=== PATIENT | female | born 1975 | race Caucasian/White ===

== ENCOUNTER 2023-05-01 07:31 | Emergency (ER) | payer OTHER, SELFPAY ==
[2023-05-01] VITALS (42 sets, daily range): BP systolic 92–126; BP diastolic 62–96; PULSE 94–109; RESP 18–22; TEMP 36.3–37.4; O2SAT 88–93
--- NOTE | ~2023-05-01 | XR_ITS ---
XR chest 1V portable DATE: 05/01/2023 08:14 INDICATION: Extreme shortness of breath. Cough, congestion for 3 days TECHNIQUE: Portable upright AP chest on 05/01/2023 at 0805 hours COMPARISON: None FINDINGS: There is extensive opacification of the right hemithorax likely due to a combination of ext ensive right diffuse lung infiltrate and atelectasis and right pleural effusion. Heart size is likely within normal range. Mild infiltrate or atelectasis is suggested in the left low er lung. Pulmonary vascularity appears within normal range. No left pleural effusion is evident. No p neumothorax is detected. Degenerative spurring and levoscoliosis of the thoracic spine. IMPRESSION: Extensive right lung infiltrate and/atelectasis and probable right pleural effusion Mild infiltrate or atelectasis, left lower lung Reviewed, dictated and finalized at location A.
--- NOTE | ~2023-05-01 | CT_ITS ---
EXAMINATION: CTA chest PE protocol DATE: 05/01/2023 10:01 INDICATION: Shortness of breath, elevated d-dimer TECHNIQUE: Computed tomography angiography (CTA) of the chest was performed with 100 mL Omnipaque-350 intravenous contrast timed to evaluate the pulmonary arteries. Coronal maximum intensity projection 3D-reconstructions were created by the technologist. Automated exposure control and iterative reconst ruction technique were employed. Exam dose: 811.41 mGy-cm total exam DLP. COMPARISON: 05/01/2023 portable AP chest FINDINGS: There is diagnostic contrast enhancement of the pulmonary arteries. Evaluation of the perip heral pulmonary arteries however is limited by motion. No central or segmental pulmonary embolus is d etected. There is a very large right pleural effusion with atelectasis of the right lung, especially the right lower lobe and middle lobe, to a lesser extent right upper lobe. No apparent bronchial obstruction i s identified. There is multifocal patchy infiltrate with peripheral predominance involving particularly the left up per lobe, lingula and to a lesser extent the right lower lobe. Multifocal pneumonia is suggested. There is mild left hilar and aortopulmonary window and prevascular lymph node prominence and to a les ser extent superior mediastinal lymph node prominence, possibly reactive. Normal heart size. Prominent degenerative disc disease in the lower cervical spine. There is diffuse idiopathic skeletal hyperostosis of the thoracic and upper lumbar spine. No suspicious osteolytic or osteoblastic lesion s are noted. IMPRESSION: No central pulmonary embolus is detected Very large right pleural effusion with associated prominent compressive atelectasis of the right midd le and lower lobes, right upper lobe atelectasis as well Multifocal patchy primarily peripheral pulmonary infiltrates on the left, suggesting pneumonia Reviewed, dictated and finalized at Location A. Reviewed, dictated and finalized at location A. IMPRESSION: No central pulmonary embolus is detected Very large right pleural effusion with associated prominent compressive atelect asis of the right middle and lower lobes, right upper lobe atelectasis as well Multifocal patchy primarily peripheral pulmonary infiltrates on the left, sugge sting pneumonia
--- NOTE | 2023-05-01 07:50 | ECG_ITS ---
Measurements Intervals [place] Rate: 103 P: 49 NH: 117 QRS: 16 QRSD: 82 T: 45 QT: 353 QTc: 462 Interpretive Statements SINUS TACHYCARDIA WITH SHORT NH INTERVAL POSSIBLE LEFT ATRIAL ENLARGEMENT [-0.1mV P-WAVE IN V1/V2] LOW QRS VOLTAGE IN PRECORDIAL LEADS [QRS DEFLECTION < 1.0 mV IN CHEST LEADS] POSSIBLE RIGHT VENTRICULAR CONDUCTION DELAY [RSR (QR) IN V1/V2] NONSPECIFIC T-WAVE ABNORMALITY ABNORMAL ECG NO PREVIOUS ECG AVAILABLE FOR COMPARISON Electronically Signed On 05-03-2023 9:21:32 CDT by Ghassan Piña M.D.
[2023-05-01] MEDS: IPRATROPIUM 0.5 MG/ALBUTEROL SULFATE 2.5 MG AMPUL.NEB 3 ML INHALATION (08:09)
[2023-05-01] MEDS: SODIUM CHLORIDE 0.9% IV 1,000 ML 999 ML IV CONT (08:16)
[2023-05-01] MEDS: methylPREDNISolone SOD SUCC 125 MG VIAL IV PUSH (08:17)
[2023-05-01 08:33] LABS: Basophils Absolute Auto 0.04 K/mm3 (0.00-0.10); Basophils Percent Auto 0.2 % (0.0-1.0); Eosinophils Absolute Auto 0.01 K/mm3 (0.02-0.50); Eosinophils Percent Auto 0.1 % (1.0-6.0); Hematocrit 34.7 % (35.0-49.0); Hemoglobin 11.2 g/dL (12.0-15.0); Immature Granulocyte Absolute 0.16 K/mm3 (0.00-0.00); Immature Granulocyte Percent A 0.8 % (0.0-0.0); Lymphocytes Percent Auto 6.8 % (18.0-42.0); Mean Corpuscular HGB Conc 32.3 g/dL (32.0-36.0); Mean Corpuscular Hemoglobin 29.9 pg (27.0-31.0); Mean Corpuscular Volume 92.5 fL (78.0-102.0); Mean Platelet Volume 9.2 fl (9.2-11.8); Monocytes Absolute Auto 1.72 K/mm3 (0.10-0.90); Neutrophils Absolute Auto 15.8 K/mm3 (1.7-7.2); Neutrophils Percent Auto 83.1 % (50.0-70.0); Platelet Count Result 295 K/mm3 (150-420); Red Blood Count 3.75 M/mm3 (4.20-5.40); Red Cell Distribution Width 14.1 % (11.6-14.4)
[2023-05-01 08:34] LABS: HCO3 ABG 25.1 mmol/L (23-29); Oxygen Content ABG 15.5 %vol (16.0-22.0); Oxygen Saturation ABG 92.6 % (95-97); Oxyhemoglobin 88.8 % (94-100); PCO2 ABG 34.3 mmHg (35-45); PO2 ABG 60.9 mmHg (80-90); Total Hemoglobin 12.4 g/dL (12.0-18.0); pH ABG 7.48 (7.35-7.45)
[2023-05-01 08:35] LABS: Device NASAL CANNULA; Modified Allen's Test Pass; Site Drawn LEFT RADIAL
[2023-05-01 08:47] LABS: Alanine Aminotransferase 25 U/L (14-59); Albumin Level 2.1 g/dL (3.4-5.0); Alkaline Phosphatase 101 U/L (46-116); Anion Gap 8 mmol/L (8-16); Aspartate Amino Transferase 22 U/L (15-37); Bilirubin,Total 0.4 mg/dL (0.00-1.00); Blood Urea Nitrogen 12 mg/dL (7-18); Calcium 8.5 mg/dL (8.5-10.1); Carbon Dioxide 27 mmol/L (21-32); Chloride 101 mmol/L (98-108); Estimated CRCL calculation 81 ml/min; Estimated Glomerular Filt Rate > 60; Glucose 205 mg/dL (70-99); Osmolality Calculated 287 mOsm/kg (285-295); Potassium 4.1 mmol/L (3.5-5.1); Sodium 136 mmol/L (136-145); Total Protein 7.4 g/dL (6.4-8.2)
[2023-05-01] MEDS: KETOROLAC 30 MG/ML VIAL (*BKC) IV PUSH (08:48)
[2023-05-01 08:50] LABS: Partial Thromboplastin Time 27.2 SEC (23.90-30.70); Prothrombin Time 10.9 Seconds (9.50-12.10)
[2023-05-01 08:51] LABS: D Dimer 2.99 mg/L (0.19-0.50)
[2023-05-01 09:12] LABS: NT Pro B Type Natriuretic Pept 452 pg/mL (0-125)
[2023-05-01 09:13] LABS: Amphetamine Screen Urine Negative (Negative); Barbiturate Screen Urine Negative (Negative); Benzodiazepines Screen Urine Negative (Negative); Cannabinoid Screen Urine Negative (Negative); Cocaine Screen Urine Negative (Negative); Methadone Screen Urine Negative (Negative); Opiate Screen Urine Negative (Negative); Phencyclidine Screen Urine Negative (Negative)
[2023-05-01 09:17] LABS: Appearance Urine Clear (Clear); Bilirubin Urine Negative (Negative); Blood Urine Trace-Intact (Negative); Color Urine Yellow (Yellow); Glucose Urine UA Negative (Negative); Ketones Urine Trace (Negative); Leukocyte Esterase Ur Negative LEU/UL (Negative); Nitrate Urine Negative (Negative); Protein Urine 2+ (Negative); Specific Grav Ur >= 1.030 (1.010-1.020)
[2023-05-01 09:24] LABS: Add Urine Microscopic? YES; Bacteria Urine Trace /hpf; RBC Urine 0-2 /hpf (0-2); Squamous Epithelial Cell Urine Moderate /hpf (Few); WBC Urine 0-3 /hpf (0-3)
[2023-05-01 09:28] LABS: Influenza A QL RT-PCR Negative (Negative); Influenza B QL RT-PCR Negative (Negative); SARS-CoV-2 RNA PCR Negative (Negative)
[2023-05-01 09:29] LABS: RSV RNA, RT-PCR Negative (Negative)
[2023-05-01 09:41] LABS: SPREG INTERNAL CONTROL Positive; Serum Qual hCG Negative
--- NOTE | 2023-05-01 11:19 | ED.SOB ---
HPI - SOB/Dyspnea General Chief Complaint: Shortness of Breath/Dyspnea Stated Complaint: ambualnce Time Seen by Provider: 05/01/23 07:32 Source: patient Mode of arrival: ambulatory Limitations: no limitations History of Present Illness HPI Narrative: this is a 47-year-old female that presents via EMS from [facility] with a history of depression psychosis diabetes hyperlipidemia was recently admitted to [facility] and has been short of breath with some no cough some mild chest tightness with no fever chills no abdominal pain. Patient does have a smoking history and, currently afebrile vitals are stable O2 sats at currently 91% on 3L. MD elicited complaint: shortness of breath Onset (ago): day(s) Timing: constant Severity: moderate Related Data Home Medications Medication Instructions Recorded Confirmed buspirone 15 mg tablet 15 mg PO BID 05/01/23 05/01/23 divalproex 250 mg tablet,extended 250 mg PO QHS 05/01/23 05/01/23 release 24 hr divalproex 500 mg tablet,delayed 500 mg PO Q12H 05/01/23 05/01/23 release docusate sodium 100 mg tablet 100 mg PO DAILY 05/01/23 05/01/23 famotidine 40 mg tablet 40 mg PO DAILY 05/01/23 05/01/23 gabapentin 300 mg tablet 300 mg PO TID 05/01/23 05/01/23 haloperidol 2 mg tablet 2 mg PO TID 05/01/23 05/01/23 hydroxyzine HCl 25 mg tablet 25 mg PO BID PRN Anxiety 05/01/23 05/01/23 insulin glargine 100 unit/mL (3 25 unit subcut QPM 05/01/23 05/01/23 mL) subcutaneous pen (Basaglar KwikPen U-100 Insulin) meloxicam 7.5 mg tablet 7.5 mg PO DAILY PRN Pain 05/01/23 05/01/23 mirtazapine 15 mg tablet 15 mg PO HS 05/01/23 05/01/23 prazosin 5 mg capsule 5 mg PO HS 05/01/23 05/01/23 simvastatin 40 mg tablet 40 mg PO HS 05/01/23 05/01/23 venlafaxine 75 mg tablet,extended 75 mg PO DAILY 05/01/23 05/01/23 release 24 hr Allergies Allergy/AdvReac Type Severity Reaction Status Date / Time codeine Allergy Rash Verified 05/01/23 08:09 Review of Systems Review of Systems: All systems reviewed & are unremarkable except as noted in HPI and below PMFSH Past Medical History Medical History Depression Diabetes mellitus Exam Const: General: healthy appearing and no acute distress Nutritional Appearance: well nourished Limitations: no limitations HENMT: Head: normal to inspection Eyes: Conjunctivae: conjunctivae normal Pupils: Equal, round and reactive pupils present Neck: Neck: normal visual inspection Chest: Chest palpation & inspection: normal inspection of the chest Resp: Effort & Inspection: normal respiratory effort Auscultation: diminished lung sounds Cardio: Rate: regular rate Rhythm: regular rhythm GI: GI Palp: Yes Soft to palpation : General: Yes bladder normal to palpation Urinary Catheter: Urinary Catheter: patent and draining Skin: General skin exam: normal color Rashes: no rashes Wounds: no wounds Neuro: General: patient oriented x3 Cranial nerves: Yes Nystagmus not present Extrem: General: normal to inspection Psych: Mental Status: mental status grossly normal Affect: normal affect Course Course Emergency Course: patient with shortness of breath did receive DuoNebs and IV Solu-Medrol currently comfortable in no acute distress O2 sats of 91% on 3L. The patient did have a x-ray and CT scan of the chest which shows very large pleural effusion on the right with evidence of pneumonia, patient received a dose of Zosyn and labs [place] [address]. Her COVID is negative, BNP is 452 EKG shows normal sinus rhythm vital signs blood pressure 110/68 heart rate of 94 respiratory rate of 20. spoke to [facility] that accepted patient for transfer under hospitalist Dr. Márquez Vital Signs Vital signs: Vital Signs Temperature 37.4 C 05/01/23 07:35 Pulse Rate 109 H 05/01/23 07:35 Respiratory Rate 20 05/01/23 07:35 Blood Pressure 108/63 05/01/23 0
--- NOTE | 2023-05-13 11:10 | PC.NURSE ---
BLOOD CULTURE RESULTS X2: NO GROWTH AFTER 5 DAYS
== END 2023-05-01 13:56 | disposition short-term general hospital (02) ==
PROVIDERS: Emergency Provider Emergency Medicine
DX: J90 Pleural effusion, not elsewhere classified (principal); J18.9 Pneumonia, unspecified organism; R06.02 Shortness of breath; E78.5 Hyperlipidemia, unspecified; E11.9 Type 2 diabetes mellitus without complications; F32.A Depression, unspecified; Z79.4 Long term (current) use of insulin; Z79.1 Long term (current) use of non-steroidal anti-inflammatories (NSAID); Z20.822 Contact with and (suspected) exposure to COVID-19; Z79.899 Other long term (current) drug therapy
CPT/HCPCS: 36415; 36600; 71045; 71275; 80053; 80307; 81001; 82805; 83735; 83880; 84484; 84703; 85025; 85380; 85610; 85730; 87040; 87637; 93005; 96361; 96365; 96375; 99285; J1885; J2543; J2930; J7030; Q9967

== ENCOUNTER 2023-05-01 14:40 | Inpatient (IN) | payer OTHER, SELFPAY ==
--- NOTE | ~2023-05-01 | XR_ITS ---
EXAMINATION: [id number] DATE: 05/04/2023 12:56 INDICATION: Right pleural effusion status post thoracentesis. TECHNIQUE: Frontal and lateral views of the chest were obtained. COMPARISON: Chest single view 05/03/2023 FINDINGS: There is a large right pleural effusion. There are airspace opacities in right lung. There are mild airspace opacities in left lower lung zone. No pneumothorax. The heart size is normal. IMPRESSION: 1. Large right pleural effusion. 2. Airspace opacities in right lung and left lower lung zone, consistent with atelectasis versus pneu monia. Reviewed, dictated and finalized at location A. IMPRESSION: 1. Large right pleural effusion. 2. Airspace opacities in right lung and left lower lung zone, consistent with a telectasis versus pneumonia.
--- NOTE | ~2023-05-01 | XR_ITS ---
Portable chest x-ray Comparison: 05/02/2023 Clinical History: Shortness of breath Findings: There is extensive consolidation in the right lung, likely moderate pleural effusion with associated airspace disease. Left lung essentially clear. Cardiomediastinal silhouette is stable. Ricardo luis and soft tissues are unremarkable. Impression: Extensive right lung consolidation, likely moderate pleural effusion with associated atelectasis or p neumonia. Correlate clinically. Reviewed, dictated and finalized at location . Impression: Extensive right lung consolidation, likely moderate pleural effusion with assoc iated atelectasis or pneumonia. Correlate clinically.
--- NOTE | ~2023-05-01 | XR_ITS ---
XR chest 1V portable DATE: 05/02/2023 10:16 INDICATION: Post right thoracentesis chest radiograph TECHNIQUE: Portable AP chest on 05/02/2023 at 1006 hours COMPARISON: 05/01/2023 portable AP chest at 0805 hours FINDINGS: Moderate residual right pleural effusion is noted, including some fluid tracking along the right lateral chest wall into the right apical area. The amount of right pleural effusion is diminish ed since 05/28/2023 There is no evidence of pneumothorax following right thoracentesis. There is infiltrate and/atelectasis involving primarily the right mid and particularly lower lung zon es. The left lung appears clear. No left pleural effusion. Heart size is normal. IMPRESSION: Residual but diminished right pleural effusion since thoracentesis today; no evidence of iatrogenic pneumothorax Infiltrate and/atelectasis involving primarily the right mid and lower lung zones, also improved sinc e 05/01/2023 Reviewed, dictated and finalized at location A. IMPRESSION: Residual but diminished right pleural effusion since thoracentesis today; no evidence of iatrogenic pneumothorax Infiltrate and/atelectasis involving primarily the right mid and lower lung zon es, also improved since 05/01/2023
--- NOTE | ~2023-05-01 | US_ITS ---
US thoracentesis DATE: 05/02/2023 10:42 INDICATION: Right pleural effusion TECHNIQUE: The purpose of the procedure, technique and potential locations were discussed with the rhonda godwin. The patient indicated understanding and gave consent. An appropriate site for percutaneous access was identified and intercostal space in the posterolatera l right lower chest. The skin was prepared with sterile Betadine solution. Sterile drape was applied. 1% lidocaine local anesthetic was administered to the skin and underlying subcutaneous tissues. A si ngle stick needle/catheter was introduced into the posterolateral right lower thoracic cavity through a lower intercostal space. Clear yellow fluid was obtained at the hub of the needle. A small pleural fluid sample was collected for requested pH determination by the laboratory. Subsequently, 600 CC of clear yellow pleural fluid was drained into a Vacutainer bottle. The patient voiced no complaints other than some coughing near completion of the thoracentesis. IMPRESSION: Successful ultrasound-guided right thoracentesis yielding 600 CC clear yellow pleural flu id Reviewed, dictated and finalized at Location A. Reviewed, dictated and finalized at location A. IMPRESSION: Successful ultrasound-guided right thoracentesis yielding 600 CC cl ear yellow pleural fluid
--- NOTE | ~2023-05-01 | CT_ITS ---
EXAMINATION: CT diagnostic chest wo con DATE: 05/03/2023 16:14 INDICATION: Pleural effusion TECHNIQUE: Computed tomography (CT) of the chest was performed without intravenous contrast. The dose -length product (DLP) was 452.25 mGy-cm. Automated exposure control and iterative reconstruction tech nique were employed. COMPARISON: 05/01/2023 FINDINGS: There is a large right pleural effusion with slight improvement since the comparison examin ation. Associated passive atelectasis of the right lung is also mildly improved. There are patchy norma undglass opacities of the left lung with some improvement in the lingula and some worsening in the le ft upper lobe. There are areas of possible nodular pleural thickening on the right. The heart size is normal. Calcified coronary artery atherosclerosis is noted. There appears to be mild persistent righ t hilar lymphadenopathy, likely reactive. There is moderate thoracic spondylosis. IMPRESSION: 1. Large right pleural effusion with slight interval decrease in size and improvement in associated p assive atelectasis of the right lung. 2. Patchy groundglass opacities of the left lung with areas of improvement in areas of worsening, lik luis manuel pneumonia. 3. Areas of possible nodular pleural thickening on the right. Follow-up after resolution of other shon st findings is recommended. Reviewed, dictated and finalized at location F. IMPRESSION: 1. Large right pleural effusion with slight interval decrease in size and impro vement in associated passive atelectasis of the right lung. 2. Patchy groundglass opacities of the left lung with areas of improvement in a reas of worsening, likely pneumonia. 3. Areas of possible nodular pleural thickening on the right. Follow-up after r esolution of other chest findings is recommended.
--- NOTE | ~2023-05-01 | US_ITS ---
EXAMINATION: US thoracentesis DATE: 05/04/2023 13:04 INDICATION: pleural effusion TECHNIQUE: The procedure and its risks, benefits, and alternatives were discussed with the patient. P otential risks discussed included bleeding, infection, and pneumothorax. The patient understood the r isks and agreed to proceed. The skin was prepped and draped in sterile fashion. 1% lidocaine was used for local anesthesia. Under ultrasound guidance, a 5 Fr catheter with trochar was advanced into the right pleural effusion. Fluid was aspirated. The catheter was removed, and a dressing was applied. Th ere were no immediate complications. FINDINGS: Ultrasound images demonstrate a right pleural effusion and the catheter within the fluid. IMPRESSION: 1. Successful ultrasound-guided thoracentesis yielding 600 mL of yellow fluid. Drainage was terminat ed at that point due to extreme coughing. Reviewed, dictated and finalized at location A. IMPRESSION: 1. Successful ultrasound-guided thoracentesis yielding 600 mL of yellow fluid. Drainage was terminated at that point due to extreme coughing.
[2023-05-01 14:38] VITALS: BP 91/52; PULSE 89; RESP 24; TEMP 36.4; O2SAT 92
--- NOTE | 2023-05-01 14:45 | PM.IMHP ---
H&P: HPI History of Present Illness Date/Time: 05/01/23 15:15 Chief Complaint: Pneumonia, pleural effusion Narrative: This is a 47-year-old female smoker with insulin-dependent type 2 diabetes mellitus, dyslipidemia, anxiety, bipolar disorder, schizophrenia, and GERD who is being directly admitted to the medical floor from the ED at [facility] for further treatment and evaluation of multifocal pneumonia and large right-sided pleural effusion after she presented to their facility with complaints of shortness of breath. The patient provides the following history. She has not been feeling well for a about 1 week with cough which is occasionally productive of yellow sputum, sweats, low-grade fever, mild chest tightness, and increasing shortness of breath on lesser and lesser exertion. It is now to the point where she is short of breath with changing positions and she becomes extremely short of breath when supine. She denies headache, sinus congestion, sore throat, exertional chest pain, nausea, vomiting, and diarrhea. She has no known sick contacts. Labs were significant for a WBC count of 19.0, D-dimer 2.99, proBNP 452, glucose 205. Chest x-ray showed extensive right lung infiltrate and atelectasis and probable right pleural effusion with infiltrate or atelectasis in the left lower lung. Chest CTA showed no central pulmonary embolus but did note a very large right pleural effusion and multifocal pneumonia. She was given a dose of Zosyn and transfer was initiated to [facility] for further treatment and diagnostic thoracentesis. At the time my evaluation she feels a bit better after receiving a nebulizer treatment. Her only complaint is that of anxiety and she is asking for nicotine patch. Review of Systems Review of Systems: Twelve systems were reviewed and are negative except for as per HPI. ON LICENSE OF [facility] Past Medical History Medical History (Updated 05/01/23 @ 21:18 by Hyun Marrero PA-C) Anxiety Bipolar disorder Depression Dyslipidemia Gastroesophageal reflux disease Insulin dependent type 2 diabetes mellitus Schizophrenia Surgical History Surgical History (Updated 05/01/23 @ 21:12 by Hyun Marrero PA-C) History of cholecystectomy History of tubal ligation Family History Family History (Updated 05/01/23 @ 21:13 by Hyun Marrero PA-C) Other Family history unknown Social History Social History (Updated 05/01/23 @ 21:14 by Hyun Marrero PA-C) Social History: Surrogate decision maker: Patient is uncertain, would like to think it over. Code status: Full code. Smoking packs per day: 1 Smoking cigarettes per day: 20.0 Smoking status: Current every day smoker Tobacco type: cigarettes Alcohol intake: never Substance use: former Substance use type: methamphetamine Last use: Early 2021. Lack of Transportation: YES Lack of Food: Sometimes True Current Housing: I Do Not Have Housing Concerned About Future Housing: YES Difficulty Paying Gas/Electric Bills: YES Difficulty Paying for Meds: YES Currently Unemployed: No Education: Don't Know Difficulty w/ Childcare or Family Care: No Additional living arrangements comments: Assisted living at [facility] in [place]. Spiritual care concerns: No Meds Home Medications and Allergies Home Medications Medication Instructions Recorded Confirmed Type buspirone 15 mg tablet 15 mg PO BID 05/01/23 05/01/23 History divalproex 250 mg tablet,extended 250 mg PO QHS 05/01/23 05/01/23 History release 24 hr divalproex 500 mg tablet,delayed 500 mg PO Q12H 05/01/23 05/01/23 History release docusate sodium 100 mg tablet 100 mg PO DAILY 05/01/23 05/01/23 History famotidine 40 mg tablet 40 mg PO DAILY 05/01/23 05/01/23 History gabapentin 300 mg tablet 300 mg PO TID 05/01/23 05/01/23 History haloperidol 2 mg tablet 2 mg PO TID 05/01/23 05/01/23 History hydroxyzine HCl 25 mg tablet 25 mg PO BI
--- NOTE | 2023-05-01 15:14 | ADMGEN ---
This patient, Desiree Cleveland, was admitted to Medical Room 261-01. Patient/family oriented to hospital policies and general routines including ID bracelet, bed and alarms, visiting hours, pain management, procedures, bathroom and other care routines, personal items, smoking policy, room service/diet, and visiting hours. Information on how to activate the Rapid Response Team has been discussed. Patient/Family are encouraged to report perceived risks to care and to ask questions if they do not understand what they are told or what they should do.
[2023-05-01 15:32] VITALS: O2SAT 92
[2023-05-01 15:39] LABS: INR 1.1; Lactic Acid Reflex 1.5 mmol/L (0.7-2.0)
[2023-05-01 15:40] LABS: Albumin Level 3.4 g/dL (3.5-5.1); Amylase 36 U/L (30-110); Bilirubin,Total 0.5 mg/dL (0.2-1.3); Cholesterol 95 mg/dL (0-200); Glucose 342 mg/dL (65-110); Lactate Dehydrogenase 241 U/L (120-246); Triglycerides 138 mg/dL (<150)
[2023-05-01] MEDS: SODIUM CHLORIDE 0.9% IV 500 ML IV CONT (15:40)
[2023-05-01] MEDS: ALBUTEROL SULFATE NEB 2.5 MG/3 ML INH INHALATION (15:44)
[2023-05-01 15:49] VITALS: PULSE 93; RESP 26
[2023-05-01 15:50] LABS: Valproic Acid 68.2 ug/mL (50-120)
[2023-05-01 15:51] LABS: Hemoglobin A1C 7.1 % (<5.7)
[2023-05-01 16:03] LABS: Procalcitonin 0.8 ng/mL
[2023-05-01 16:05] LABS: CRP 36.3 mg/dL (<1.0)
[2023-05-01] MEDS: NICOTINE (*PBKC) 21 MG PATCH 1 PATCH TRANSDERM (16:14)
[2023-05-01] MEDS: PIPERACILLN/TAZ 3.375GM/NS50ML 3.375 GM/50 ML BAG IVPB ×2 (16:20→20:32)
[2023-05-01 17:01] LABS: Glucose Point of Care 309 mg/dl (65-105)
[2023-05-01] MEDS: INSULIN ASPART (*BKC) 100 UNITS/ML SUB-Q (17:04)
[2023-05-01] MEDS: HALOPERIDOL 1 MG TABLET 2 MG PO (19:03)
[2023-05-01] MEDS: GABAPENTIN 300 MG CAPSULE PO (19:04)
[2023-05-01] MEDS: ACETAMINOPHEN 325 MG TABLET 650 MG PO (19:04)
[2023-05-01] MEDS: MELOXICAM 7.5 MG TABLET PO (19:05)
[2023-05-01 19:13] VITALS: BP 123/65; PULSE 92; RESP 16; TEMP 36.4; O2SAT 92
[2023-05-01 20:00] VITALS: PULSE 71; PULSE 92; RESP 16; O2SAT 92
[2023-05-01] MEDS: DIVALPROEX SODIUM DR 250 MG TABEC 500 MG PO (20:32)
[2023-05-01] MEDS: SIMVASTATIN 20 MG TABLET 40 MG PO (20:32)
[2023-05-01] MEDS: MIRTAZAPINE 15 MG TABLET PO (20:32)
[2023-05-01] MEDS: DIVALPROEX SODIUM ER 250 MG TAB.24H PO (20:32)
[2023-05-01] MEDS: busPIRone HCL 5 MG TABLET 15 MG PO (20:32)
[2023-05-01] MEDS: INSULIN GLARGINE (*BKC) 100 UNITS/ML 25 UNITS SUB-Q (20:45)
[2023-05-01] MEDS: INSULIN ASPART (*BKC) 100 UNITS/ML 10 UNITS SUB-Q (20:45)
[2023-05-01 21:19] LABS: Glucose Point of Care 423 mg/dl (65-105)
[2023-05-01] MEDS: DOXYCYCLINE 100 MG/NS 100 ML 100 MG/100 ML BAG IVPB (21:51)
[2023-05-01] MEDS: hydrOXYzine HCL 25 MG TABLET PO (21:58)
[2023-05-01] MEDS: metroNIDAZOLE 500 MG/ISO 100ML 500 MG/100 ML BAG 100 MG IVPB (22:16)
[2023-05-01 23:28] LABS: Glucose Point of Care 306 mg/dl (65-105)
[2023-05-02] VITALS (16 sets, daily range): BP systolic 112–151; BP diastolic 60–71; PULSE 63–98; RESP 16–24; TEMP 36.1–37.2; O2SAT 92–99
[2023-05-02] MEDS: INSULIN ASPART (*BKC) 100 UNITS/ML SUB-Q ×2 (00:01→20:19)
[2023-05-02] MEDS: metroNIDAZOLE 500 MG/ISO 100ML 500 MG/100 ML BAG 100 MG IVPB ×3 (05:25→22:05)
[2023-05-02 05:57] LABS: Basophils Percent Auto 0.2 % (0.2-1.2); Hematocrit 38.8 % (37.0-47.0); Immature Granulocyte Absolute 0.24 K/mm3 (0.00-0.031); Immature Granulocyte Percent A 1.4 % (0-0.5); Lymphocytes Absolute Auto 1.49 K/mm3 (0.9-3.2); Lymphocytes Percent Auto 8.7 % (18.3-44.2); Mean Corpuscular HGB Conc 30.9 g/dl (32-36); Mean Corpuscular Hemoglobin 29.6 pg (26-34); Mean Corpuscular Volume 95.8 fl (80-100); Mean Platelet Volume 9.6 fl (7.4-10.4); Monocytes Absolute Auto 1.2 K/mm3 (0.1-0.6); Monocytes Percent Auto 6.8 % (2.6-8.5); Neutrophils Absolute Auto 14.2 K/mm3 (1.3-6.7); Neutrophils Percent Auto 82.9 % (45.5-73.1); Platelet Count Result 327 k/mm3 (150-375); Red Blood Count 4.05 M/mm3 (4.2-5.4); Red Cell Distribution Width 14.6 % (11.5-14.5); White Blood Count 17.2 K/mm3 (4.5-10.0)
[2023-05-02 06:37] LABS: Alanine Aminotransferase 82 U/L (6-35); Albumin Level 3.5 g/dL (3.5-5.1); Alkaline Phosphatase 114 U/L (38-126); Anion Gap 9 mmol/L (8-16); Aspartate Amino Transferase 103 U/L (14-36); Bilirubin,Total 0.4 mg/dL (0.2-1.3); Blood Urea Nitrogen 21 mg/dL (7-17); Calcium 8.8 mg/dL (8.4-10.2); Carbon Dioxide 29 mmol/L (22-30); Chloride 103 mmol/L (98-107); Estimated CRCL calculation 94 ml/min; Estimated Glomerular Filt Rate > 60; Glucose 222 mg/dL (65-110); Magnesium 2.7 mg/dL (1.6-2.3); Potassium 3.8 mmol/L (3.4-5.0); Sodium 141 mmol/L (137-145)
[2023-05-02] MEDS: hydrOXYzine HCL 25 MG TABLET PO ×2 (06:52→20:10)
[2023-05-02 07:52] LABS: Glucose Point of Care 203 mg/dl (65-105)
--- NOTE | 2023-05-02 08:41 | PM.IMPN ---
Progress Note: A&P Assessment and Plan (1) Multifocal pneumonia: Code(s): J18.9 - Pneumonia, unspecified organism Status: Acute Assessment and Plan: Cont abx, started on rocephin, doxy, flagyl 05/01, consider pulm consult if does not improve as expected Follow antigens and cultures, pending Nebs + tessalon perles + mucinex IS to bedside (2) Pleural effusion on right: Code(s): J90 - Pleural effusion, not elsewhere classified Status: Acute Assessment and Plan: Monitor, may need thoracentesis, follow to resolution (3) Insulin dependent type 2 diabetes mellitus: Code(s): E11.9 - Type 2 diabetes mellitus without complications; Z79.4 - director long term care (current) use of insulin Status: Acute Assessment and Plan: Accuchecks + SSI, blood glucose reviewed 05/02 Check a1c (4) Psychiatric illness: Code(s): F99 - Mental disorder, not otherwise specified Status: Acute Assessment and Plan: Cont home meds, monitor, stable Plan DVT prophylaxis with SCDs GI prophylaxis not indicated Code status full code Subjective Date/time seen: 05/02/23 08:41 Interval history: 47-year-old female smoker with insulin-dependent type 2 diabetes, dyslipidemia, anxiety with bipolar disorder and schizophrenia as well as GERD presenting from [place] for multifocal pneumonia. No overnight events noted. No chest pain or shortness of breath. No nausea, vomiting or diarrhea. No fevers or chills. C/o coughing fits with deep breaths. Also some wheezing and weakness. Review of Systems Review of Systems: 12 point review of systems was assessed and was negative except as noted in the HPI Exam Narrative: General: No acute distress, alert and oriented per baseline HEENT: Atraumatic, normocephalic, mucous membranes moist CV: Regular rate and rhythm, S1, S2 Lungs: Poor air entry, scattered wheezes and crackles at bases noted Abdomen: Soft, nontender, nondistended Extremities: Normal to inspection, no edema Skin: No rashes noted, no lesions or wounds seen Psych: Euthymic, normal affect Objective Data Vital Signs Vital Signs: Vital Signs - 24 hr 05/01/23 14:38 05/01/23 15:49 05/01/23 15:32 Temperature 97.5 F L Pulse Rate 89 93 Respiratory Rate 24 H 26 H Blood Pressure 91/52 L Pulse Oximetry 92 92 Oxygen Delivery Nasal Cannula Oxygen Flow Rate 3 05/01/23 19:13 05/01/23 20:00 05/01/23 20:00 Temperature 97.6 F Pulse Rate 92 71 92 Respiratory Rate 16 16 Blood Pressure 123/65 Pulse Oximetry 92 92 Oxygen Delivery Nasal Cannula Oxygen Flow Rate 3 05/02/23 00:00 05/02/23 00:00 05/02/23 04:00 Temperature 97.6 F Pulse Rate 65 63 63 Respiratory Rate 16 Blood Pressure 112/64 Pulse Oximetry 94 Oxygen Delivery Oxygen Flow Rate 05/02/23 04:00 05/02/23 08:00 Temperature 97.5 F L Pulse Rate 98 76 Respiratory Rate 24 H Blood Pressure 151/60 H Pulse Oximetry 92 Oxygen Delivery Oxygen Flow Rate Intake/Output Intake/Output: Intake & Output 04/29/23 04/30/23 05/01/23 05/02/23 23:59 23:59 23:59 23:59 Intake Total 1070 100 Balance 1070 100 Meds/Results Medications: Active Medications Generic Name Dose Route Start Last Admin Trade Name Freq PRN Reason Stop Dose Admin Acetaminophen 650 mg 05/01/23 14:40 05/01/23 19:04 Acetaminophen 325 Mg Tablet PO 650 mg Q4H PRN Administration Mild Pain (1-3) or Fever Albuterol 2.5 mg 05/01/23 20:09 Albuterol Sulfate Neb 2.5 Mg/3 Ml Inh INHALATION Q4HRT PRN Shortness Of Breath Or Wheezing Buspirone HCl 15 mg 05/01/23 21:00 05/01/23 20:32 Buspirone Hcl 5 Mg Tablet PO 15 mg Q12HR MONICA Administration Dextrose 12.5 gm 05/01/23 14:42 Dextrose 50% 25 Gm/50 Ml Syringe IV PUSH PRN PRN Hypoglycemia Protocol Divalproex Sodium 250 mg 05/01/23 21:00 05/01/23 20:32 Divalp
[2023-05-02] MEDS: ALBUTEROL SULFATE NEB 2.5 MG/3 ML INH INHALATION ×3 (09:58→19:25)
[2023-05-02 10:00] LABS: pH Pleural Fluid < 0.000 (7.210-7.500)
[2023-05-02 10:35] LABS: Appearance Pleural Fluid Cloudy (Clear); Pleural fluid source Pleural fluid
[2023-05-02 10:36] LABS: Color Pleural Fluid Yellow (Colorless); Lymphocytes Pleural Fluid 8 %; Monocytes Pleural Fluid 4 %; Neutrophils Pleural Fluid 88 % (0-25)
[2023-05-02 10:37] LABS: Nucleated Cell Pleural Fluid 7385 /uL (0-1000); RBC Pleural Fluid 5000 /uL (0-0)
[2023-05-02] MEDS: DOXYCYCLINE 100 MG/NS 100 ML 100 MG/100 ML BAG IVPB ×2 (11:40→20:12)
[2023-05-02] MEDS: DIVALPROEX SODIUM DR 250 MG TABEC 500 MG PO ×2 (11:40→20:11)
[2023-05-02] MEDS: GABAPENTIN 300 MG CAPSULE PO ×3 (11:40→18:09)
[2023-05-02 11:41] LABS: Glucose Point of Care 165 mg/dl (65-105)
[2023-05-02] MEDS: busPIRone HCL 5 MG TABLET 15 MG PO ×2 (11:41→20:11)
[2023-05-02] MEDS: DOCUSATE SODIUM 100 MG CAPSULE PO (11:41)
[2023-05-02] MEDS: VENLAFAXINE HCL XR 75 MG CAP.ER.24H PO (11:41)
[2023-05-02] MEDS: HALOPERIDOL 1 MG TABLET 2 MG PO ×3 (11:41→18:09)
[2023-05-02] MEDS: FAMOTIDINE 20 MG TABLET 40 MG PO (11:41)
[2023-05-02] MEDS: NICOTINE (*PBKC) 21 MG PATCH 1 PATCH TRANSDERM (11:42)
[2023-05-02] MEDS: BENZONATATE 100 MG CAPSULE 200 MG PO ×2 (13:02→18:09)
[2023-05-02] MEDS: SALINE 0.65% NAS SOLN 44 ML BTL 1 SPRAY NASAL ×2 (13:04→21:46)
[2023-05-02] MEDS: IPRATROPIUM BR 0.02% INH SOLN 0.5 MG/2.5 ML VIAL INHALATION ×2 (13:30→19:25)
[2023-05-02 17:26] LABS: Glucose Point of Care 194 mg/dl (65-105)
[2023-05-02] MEDS: INSULIN GLARGINE (*BKC) 100 UNITS/ML 25 UNITS SUB-Q (18:08)
[2023-05-02] MEDS: ACETAMINOPHEN 325 MG TABLET 650 MG PO (18:09)
[2023-05-02] MEDS: MIRTAZAPINE 15 MG TABLET PO (20:10)
[2023-05-02] MEDS: SIMVASTATIN 20 MG TABLET 40 MG PO (20:11)
[2023-05-02] MEDS: DIVALPROEX SODIUM ER 250 MG TAB.24H PO (20:11)
[2023-05-02 20:49] LABS: Glucose Point of Care 206 mg/dl (65-105)
[2023-05-03] VITALS (28 sets, daily range): BP systolic 97–155; BP diastolic 55–85; PULSE 77–121; RESP 16–24; TEMP 36.4–38.3; O2SAT 86–100
[2023-05-03] MEDS: ALBUTEROL SULFATE NEB 2.5 MG/3 ML INH INHALATION ×6 (00:01→19:46)
[2023-05-03] MEDS: IPRATROPIUM BR 0.02% INH SOLN 0.5 MG/2.5 ML VIAL INHALATION ×6 (00:01→19:46)
[2023-05-03] MEDS: ACETAMINOPHEN 325 MG TABLET 650 MG PO ×2 (01:39→20:18)
[2023-05-03] MEDS: metroNIDAZOLE 500 MG/ISO 100ML 500 MG/100 ML BAG 100 MG IVPB ×3 (05:25→22:20)
[2023-05-03 08:29] LABS: Glucose Point of Care 118 mg/dl (65-105)
[2023-05-03] MEDS: DOXYCYCLINE 100 MG/NS 100 ML 100 MG/100 ML BAG IVPB ×2 (09:09→20:36)
[2023-05-03] MEDS: FAMOTIDINE 20 MG TABLET 40 MG PO (09:10)
[2023-05-03] MEDS: BENZONATATE 100 MG CAPSULE 200 MG PO ×3 (09:10→18:23)
[2023-05-03] MEDS: busPIRone HCL 5 MG TABLET 15 MG PO ×2 (09:10→20:34)
[2023-05-03] MEDS: DOCUSATE SODIUM 100 MG CAPSULE PO (09:10)
[2023-05-03] MEDS: HALOPERIDOL 1 MG TABLET 2 MG PO ×3 (09:11→18:20)
[2023-05-03] MEDS: NICOTINE (*PBKC) 21 MG PATCH 1 PATCH TRANSDERM (09:11)
[2023-05-03] MEDS: DIVALPROEX SODIUM DR 250 MG TABEC 500 MG PO ×2 (09:11→20:43)
[2023-05-03] MEDS: GABAPENTIN 300 MG CAPSULE PO ×3 (09:11→18:20)
[2023-05-03] MEDS: VENLAFAXINE HCL XR 75 MG CAP.ER.24H PO (09:11)
--- NOTE | 2023-05-03 09:30 | PM.IMPN ---
Progress Note: A&P Assessment and Plan (1) Multifocal pneumonia: Code(s): J18.9 - Pneumonia, unspecified organism Status: Acute Assessment and Plan: Cont abx, started on rocephin, doxy, flagyl 05/01, consider pulm consult if does not improve as expected Follow antigens and cultures, pending Nebs + tessalon perles + mucinex IS to bedside 05/03: check CXR, cont current management Update: CXR looks worse, check CT chest, consult pulm for further recommendations (2) Pleural effusion on right: Code(s): J90 - Pleural effusion, not elsewhere classified Status: Acute Assessment and Plan: Thoracentesis performed 05/02, cytology pending (3) Insulin dependent type 2 diabetes mellitus: Code(s): E11.9 - Type 2 diabetes mellitus without complications; 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 No overnight events noted. No chest pain or shortness of breath. No nausea, vomiting or diarrhea. No fevers or chills. Still with coughing fits. Still a little weak. Review of Systems Review of Systems: 12 point review of systems was assessed and was negative except as noted in the HPI Exam Narrative: General: No acute distress, alert and oriented per baseline HEENT: Atraumatic, normocephalic, mucous membranes moist CV: Regular rate and rhythm, S1, S2 Lungs: Coarse BS throughout, diminished at bases, scattered crackles Abdomen: Soft, nontender, nondistended Extremities: Normal to inspection, no edema Skin: No rashes noted, no lesions or wounds seen Psych: Euthymic, normal affect Objective Data Vital Signs Vital Signs: Vital Signs - 24 hr 05/02/23 10:05/02/23 10:05/02/23 10:07 Temperature Pulse Rate 70 70 73 Respiratory Rate 18 18 20 Blood Pressure Pulse Oximetry 95 Oxygen Delivery Nasal Cannula Oxygen Flow Rate 3 05/02/23 11:54 05/02/23 13:30 05/02/23 13:40 Temperature 97.8 F Pulse Rate 88 85 84 Respiratory Rate 16 20 20 Blood Pressure 116/65 Pulse Oximetry 96 Oxygen Delivery Oxygen Flow Rate 05/02/23 14:58 05/02/23 16:00 05/02/23 12:00 Temperature 96.9 F L Pulse Rate 84 96 88 Respiratory Rate 20 16 Blood Pressure 133/71 Pulse Oximetry 96 99 Oxygen Delivery Nasal Cannula Oxygen Flow Rate 3 05/02/23 16:00 05/02/23 19:25 05/02/23 19:28 Temperature Pulse Rate 98 78 Respiratory Rate 20 Blood Pressure Pulse Oximetry 96 Oxygen Delivery Nasal Cannula Oxygen Flow Rate 3 05/02/23 19:40 05/02/23 19:39 05/02/23 20:00 Temperature 98.9 F Pulse Rate 86 95 92 Respiratory Rate 20 20 Blood Pressure 116/61 Pulse Oximetry 96 Oxygen Delivery Oxygen Flow Rate 05/02/23 20:00 05/03/23 00:02 05/03/23 00:11 Temperature Pulse Rate 86 88 89 Respiratory Rate 20 20 20 Blood Pressure Pulse Oximetry 96 Oxygen Delivery Nasal Cannula Oxygen Flow Rate 3 05/03/23 00:00 05/03/23 00:00 05/03/23 04:00 Temperature 99.5 F Pulse Rate 86 104 H 85 Respiratory Rate 16 Blood Pressure 129/73 Pulse Oximetry 100 Oxygen Delivery Oxygen Flow Rate 05/03/23 04:00 05/03/23 05:05 05/03/23 07:55 Temperature 98.2 F Pulse Rate 77 94 86 Respiratory Rate 16 17 18 Blood Pressure 97/55 L Pulse Oximetry 97 Oxygen Delivery Oxygen Fl
[2023-05-03 10:02] LABS: Basophils Percent Auto 0.3 % (0.2-1.2); Hematocrit 40.3 % (37.0-47.0); Hemoglobin 12.4 g/dL (12.0-15.0); Immature Granulocyte Absolute 0.15 K/mm3 (0.00-0.031); Immature Granulocyte Percent A 1.4 % (0-0.5); Lymphocytes Absolute Auto 1.11 K/mm3 (0.9-3.2); Lymphocytes Percent Auto 10.5 % (18.3-44.2); Mean Corpuscular HGB Conc 30.8 g/dl (32-36); Mean Corpuscular Hemoglobin 29.2 pg (26-34); Mean Corpuscular Volume 94.8 fl (80-100); Mean Platelet Volume 9.2 fl (7.4-10.4); Monocytes Absolute Auto 1.2 K/mm3 (0.1-0.6); Monocytes Percent Auto 11.1 % (2.6-8.5); Neutrophils Absolute Auto 8.1 K/mm3 (1.3-6.7); Neutrophils Percent Auto 76.7 % (45.5-73.1); Platelet Count Result 334 k/mm3 (150-375); Red Blood Count 4.25 M/mm3 (4.2-5.4); Red Cell Distribution Width 15.2 % (11.5-14.5); White Blood Count 10.5 K/mm3 (4.5-10.0)
[2023-05-03 10:15] LABS: Alanine Aminotransferase 100 U/L (6-35); Albumin Level 3.4 g/dL (3.5-5.1); Alkaline Phosphatase 133 U/L (38-126); Anion Gap 8 mmol/L (8-16); Aspartate Amino Transferase 66 U/L (14-36); Bilirubin,Total 0.5 mg/dL (0.2-1.3); Blood Urea Nitrogen 16 mg/dL (7-17); Calcium 8.8 mg/dL (8.4-10.2); Carbon Dioxide 32 mmol/L (22-30); Chloride 101 mmol/L (98-107); Estimated CRCL calculation 94 ml/min; Estimated Glomerular Filt Rate > 60; Glucose 176 mg/dL (65-110); Potassium 3.9 mmol/L (3.4-5.0); Sodium 141 mmol/L (137-145)
[2023-05-03 11:54] LABS: Glucose Point of Care 253 mg/dl (65-105)
[2023-05-03] MEDS: INSULIN ASPART (*BKC) 100 UNITS/ML SUB-Q (11:55)
--- NOTE | 2023-05-03 14:55 | HOMEO2EVAL ---
Evaluation was performed at [facility] Home Oxygen Evaluation RC: Home Oxygen (O2) Evaluation Start: 05/03/23 13:52 Freq: ONCE Status: Active Protocol: RPE Activity Type Activity Date Activity User E-sign Co-sign Detail Recorded Client Recorded Date Recorded By Document 05/03/23 14:21 KRM [email or web address] 05/03/23 14:55 KRM Document 05/03/23 14:23 KRM [email or web address] 05/03/23 14:55 KRM Document 05/03/23 14:25 KRM [email or web address] 05/03/23 14:55 KRM Document 05/03/23 14:27 KRM [email or web address] 05/03/23 14:55 KRM 05/03/23 05/03/23 05/03/23 14:21 14:23 14:25 Home O2 Evaluation [Oxygen] -Test Phase Resting Exercise Exercise -Oxygen Delivery Room Air Room Air Nasal Cannula -Oxygen Flow Rate (L/min) 1 [Pulse Oximetry] -Pulse Oximetry (90-100 %) 92 86 L 88 L [Pulse Rate] -Pulse Rate (60-100 beats/min) 91 120 H 121 H [Evaluation] -Activity Tolerance Fair Fair [Exercise] -Ambulation Distance (feet) -Ambulation Distance (meters) [Comments] -Home Oxygen Evaluation Comments [Charges] -Treatment Charges 05/03/23 14:27 Home O2 Evaluation [Oxygen] -Test Phase Exercise -Oxygen Delivery Nasal Cannula -Oxygen Flow Rate (L/min) 2 [Pulse Oximetry] -Pulse Oximetry (90-100 %) 90 [Pulse Rate] -Pulse Rate (60-100 beats/min) 102 H [Evaluation] -Activity Tolerance Fair [Exercise] -Ambulation Distance (feet) 75 -Ambulation Distance (meters) 22.85 [Comments] -Home Oxygen Evaluation Comments 2lpm with activity. [Charges] -Treatment Charges O2 Evaluation - Inpatient
--- NOTE | 2023-05-03 14:56 | PCRCNOTE ---
Pt. requires 2lpm oxygen with activity. Faxed packet to [employer]. Requested POC. Tank will be delivered tomorrow. Please call [phone] for more info.
--- NOTE | 2023-05-03 15:08 | PM.CNPUL ---
Assessment and Plan Assessment and plan (1) Multifocal pneumonia: Code(s): J18.9 - Pneumonia, unspecified organism Status: Acute Assessment and Plan: Patient presents with 1 month history of cough, phlegm production, worsening shortness of breath and subjective fevers with leukocytosis of 19.[address] scan with a large right pleural effusion and patchy infiltrates on the left. this is consistent with multifocal pneumonia. Thoracentesis on 05/02 demonstrated clear yellow fluid with no organisms seen, neutrophilic predominant and a pH of less than 7.00 (I spoke with electronic calibration technician and reviewed results of pH study). This is a complicated right pleural effusion. 05/03/2023: Currently the patient states she has improved to 95% back to normal, her white blood cell count is 10.5, she is afebrile and her gas exchange is improved and she is now on room air at rest. She is currently on ceftriaxone, Flagyl and doxycycline all started 05/01/2023. blood cultures, pleural fluid cultures are negative. Sputum shows gram-positive cocci and gram-negative bacilli. I will continue these antibiotics and repeat thoracentesis on 05/04/2023. (2) Pleural effusion on right: Code(s): J90 - Pleural effusion, not elsewhere classified Status: Acute Assessment and Plan: Patient has a complicated right pleural effusion associated will multifocal pneumonia with Thoracentesis on 05/02 demonstrated 600 ml clear yellow fluid with no organisms seen on gram stain, white blood cell count 7385 with a differential 88% neutrophils, 8% lymphocytes, 4%monocytes. pH of less than 7.00 (I spoke with electronic calibration technician and reviewed results of pH study). remainder of studies are pending. Cytology is not listed in the computer under the pathology department. This is a complicated right pleural effusion and I recommended that we repeat thoracentesis in an attempt to completely drain the right pleural fluid and reassess as she has clinically responded to IV antibiotics. The patient tells me she does not want the right pleural thoracentesis today but she is willing to do this on 05/04/2023. If the patient's repeat pH is less than 7.20 will refer to higher level of care facility for chest tube evaluation. I did tell her that if we could not drain this fluid or that if it is loculated or recurs that she would need to be referred to a higher level of care facility with a thoracic surgeon for chest tube evaluation. Discussed with Dr. Workman, will follow with you History of Present Illness History of Present Illness Consult date: 05/03/23 Chief complaint: Pneumonia,Pleural Effusion Narrative: 05/03/23: this is a new pulmonary consultation for pneumonia with right pleural effusion. 47-year-old with a history of current tobacco use, diabetes, hyperlipidemia, anxiety, bipolar and schizophrenia who lives in a living facility. patient tells me she has had 1 month history of cough, phlegm production, shortness of breath with some sweating episodes. The shortness of breath had progressed and the patient presented 2 [place] emergency room on 05/01/2023 with a white blood cell count of 19.0, eosinophils 0.1%, a D-dimer of 2.99, a creatinine of 0.81, BNP of 452 and a chest x-ray that demonstrated a large right pleural effusion. CT angiogram demonstrated no pulmonary embolism, large right pleural effusion with compressive atelectasis and patchy infiltrates on the left. Patient was transferred to [facility] where She was placed on ceftriaxone and Zosyn. Covid, influenza and RSV RT PCR studies were negative. ABG on 3 L was pH of 7.48/34/61. Flagyl and doxycycline were added. On 05/02 the patient underwent right thoracentesis with 600 mL of clear yellow fluid removed. G stain showed white blood cells but no organisms. PH was less than 7.00. White blood cells 7385 with a differential of neutrophils 88, lymphocytes 8, monocytes 4.
[2023-05-03 16:51] LABS: Glucose Point of Care 123 mg/dl (65-105)
[2023-05-03] MEDS: INSULIN GLARGINE (*BKC) 100 UNITS/ML 25 UNITS SUB-Q (18:20)
[2023-05-03] MEDS: hydrOXYzine HCL 25 MG TABLET PO (18:27)
[2023-05-03 19:53] LABS: Glucose Point of Care 162 mg/dl (65-105)
[2023-05-03] MEDS: MIRTAZAPINE 15 MG TABLET PO (20:34)
[2023-05-03] MEDS: SIMVASTATIN 20 MG TABLET 40 MG PO (20:34)
[2023-05-03] MEDS: guaiFENesin 12 HR 600 MG TABCR 1200 MG PO (20:34)
[2023-05-03] MEDS: DIVALPROEX SODIUM ER 250 MG TAB.24H PO (20:43)
--- NOTE | 2023-05-03 23:56 | PC.NURSE ---
Around 2119 on 05/03/23, radiology called to ask some pre-procedure questions about this patient. Pt scheduled for US thoracentesis tomorrow but no time is set yet. I informed radiology that earlier while performing my assessment pt said she did not want to go through with the procedure again tomorrow and was likely not going to be agreeable later. Radiology said they will make a note about this and have someone discuss with the pt again in the morning. I asked if it was still necessary to obtain consent and make pt NPO tonight if she was not agreeable to procedure. Radiology said it was not necessary to.
[2023-05-04] VITALS (24 sets, daily range): BP systolic 98–138; BP diastolic 58–80; PULSE 77–111; RESP 18–22; TEMP 36.2–37.1; O2SAT 90–99
[2023-05-04] MEDS: ALBUTEROL SULFATE NEB 2.5 MG/3 ML INH INHALATION ×5 (00:35→15:54)
[2023-05-04] MEDS: IPRATROPIUM BR 0.02% INH SOLN 0.5 MG/2.5 ML VIAL INHALATION ×5 (00:35→15:54)
[2023-05-04] MEDS: MELOXICAM 7.5 MG TABLET PO (05:16)
[2023-05-04] MEDS: metroNIDAZOLE 500 MG/ISO 100ML 500 MG/100 ML BAG 100 MG IVPB ×2 (05:16→13:15)
[2023-05-04 06:20] LABS: Basophils Percent Auto 0.4 % (0.2-1.2); Eosinophils Percent Auto 0.1 % (0-4.4); Hemoglobin 12.3 g/dL (12.0-15.0); Immature Granulocyte Absolute 0.15 K/mm3 (0.00-0.031); Immature Granulocyte Percent A 1.4 % (0-0.5); Lymphocytes Absolute Auto 1.65 K/mm3 (0.9-3.2); Lymphocytes Percent Auto 15.1 % (18.3-44.2); Mean Corpuscular HGB Conc 30.8 g/dl (32-36); Mean Corpuscular Hemoglobin 29.1 pg (26-34); Mean Corpuscular Volume 94.8 fl (80-100); Mean Platelet Volume 9.6 fl (7.4-10.4); Monocytes Absolute Auto 1.4 K/mm3 (0.1-0.6); Monocytes Percent Auto 12.4 % (2.6-8.5); Neutrophils Absolute Auto 7.7 K/mm3 (1.3-6.7); Neutrophils Percent Auto 70.6 % (45.5-73.1); Platelet Count Result 333 k/mm3 (150-375); Red Blood Count 4.22 M/mm3 (4.2-5.4); Red Cell Distribution Width 15.2 % (11.5-14.5); White Blood Count 10.9 K/mm3 (4.5-10.0)
[2023-05-04 06:28] LABS: INR 1.1; Prothrombin Time 15.1 Seconds (11.1-14.7)
[2023-05-04 06:31] LABS: Alanine Aminotransferase 59 U/L (6-35); Albumin Level 3.2 g/dL (3.5-5.1); Alkaline Phosphatase 121 U/L (38-126); Anion Gap 6 mmol/L (8-16); Aspartate Amino Transferase 25 U/L (14-36); Bilirubin,Total 0.5 mg/dL (0.2-1.3); Blood Urea Nitrogen 12 mg/dL (7-17); Calcium 8.3 mg/dL (8.4-10.2); Carbon Dioxide 27 mmol/L (22-30); Chloride 102 mmol/L (98-107); Estimated CRCL calculation 108 ml/min; Estimated Glomerular Filt Rate > 60; Glucose 193 mg/dL (65-110); Lactate Dehydrogenase 179 U/L (120-246); Potassium 4.1 mmol/L (3.4-5.0); Sodium 135 mmol/L (137-145)
[2023-05-04] MEDS: MEROPENEM 1 GM in SODIUM CHLORIDE 0.9% IV 100 ML 200 ML IVPB (07:57)
[2023-05-04] MEDS: NICOTINE (*PBKC) 21 MG PATCH 1 PATCH TRANSDERM (08:02)
[2023-05-04] MEDS: VENLAFAXINE HCL XR 75 MG CAP.ER.24H PO (08:02)
[2023-05-04] MEDS: DIVALPROEX SODIUM DR 250 MG TABEC 500 MG PO (08:02)
[2023-05-04] MEDS: busPIRone HCL 5 MG TABLET 15 MG PO (08:02)
[2023-05-04] MEDS: GABAPENTIN 300 MG CAPSULE PO ×3 (08:03→16:33)
[2023-05-04] MEDS: BENZONATATE 100 MG CAPSULE 200 MG PO ×3 (08:03→16:33)
[2023-05-04] MEDS: guaiFENesin 12 HR 600 MG TABCR 1200 MG PO (08:03)
[2023-05-04] MEDS: HALOPERIDOL 1 MG TABLET 2 MG PO ×3 (08:03→16:33)
[2023-05-04] MEDS: DOCUSATE SODIUM 100 MG CAPSULE PO (08:03)
[2023-05-04 08:30] LABS: Glucose Point of Care 142 mg/dl (65-105)
[2023-05-04] MEDS: VANCOMYCIN 1,250 MG/NS 250 ML 1,250 MG/250 ML BAG 166.67 MG IVPB ×2 (09:33→11:05)
[2023-05-04] MEDS: levoFLOXacin 750 MG/D5W 150 ML 750 MG/150 ML BAG 100 MG IVPB (09:34)
[2023-05-04] MEDS: FAMOTIDINE 20 MG TABLET 40 MG PO (09:34)
--- NOTE | 2023-05-04 10:01 | PM.PNPUL ---
Progress Note: A&P Assessment and Plan (1) Multifocal pneumonia: Code(s): J18.9 - Pneumonia, unspecified organism Status: Acute Assessment and Plan: Patient presents with 1 month history of cough, phlegm production, worsening shortness of breath and subjective fevers with leukocytosis of 19.[address] scan with a large right pleural effusion and patchy infiltrates on the left. this is consistent with multifocal pneumonia. Thoracentesis on 05/02 demonstrated clear yellow fluid with no organisms seen, neutrophilic predominant and a pH of less than 7.00 (I spoke with fishing tool technician oil well and reviewed results of pH study). This is a complicated right pleural effusion. 05/03/2023: Currently the patient states she has improved to 95% back to normal, her white blood cell count is 10.5, she is afebrile and her gas exchange is improved and she is now on room air at rest. She is currently on ceftriaxone, Flagyl and doxycycline all started 05/01/2023. blood cultures, pleural fluid cultures are negative. Sputum shows gram-positive cocci and gram-negative bacilli. I will continue these antibiotics and repeat thoracentesis on 05/04/2023. 05/04 Patient states she slept well. Patient did have a fever associated with sweating and diaphoresis currently she is on 2 L nasal cannula saturation 95%. White blood cell count is 10.9. Creatinine is 0.6. Patient with a complex right pleural effusion and I have recommended that she be referred to higher level of facility for evaluation for a chest tube. At this time the patient tells me she will not be transferred but she will undergo a repeat thoracentesis which is scheduled for today. Plan: I will cover the patient broadly with antibiotics and spoke with Infectious Disease pharmacist and have changed her to vancomycin, cefepime, Flagyl and Levaquin. will follow with you. (2) Pleural effusion on right: Code(s): J90 - Pleural effusion, not elsewhere classified Status: Acute Assessment and Plan: Patient has a complicated right pleural effusion associated will multifocal pneumonia with Thoracentesis on 05/02 demonstrated 600 ml clear yellow fluid with no organisms seen on gram stain, white blood cell count 7385 with a differential 88% neutrophils, 8% lymphocytes, 4%monocytes. pH of less than 7.00 (I spoke with fishing tool technician oil well and reviewed results of pH study). remainder of studies are pending. Cytology is not listed in the computer under the pathology department. This is a complicated right pleural effusion and I recommended that we repeat thoracentesis in an attempt to completely drain the right pleural fluid and reassess as she has clinically responded to IV antibiotics. 05/03 The patient tells me she does not want the right pleural thoracentesis today but she is willing to do this on 05/04/2023. If the patient's repeat pH is less than 7.20 will refer to higher level of care facility for chest tube evaluation. I did tell her that if we could not drain this fluid or that if it is loculated or recurs that she would need to be referred to a higher level of care facility with a thoracic surgeon for chest tube evaluation. 05/04 patient with a fever last night despite improvement in her leukocytosis I am concerned about an empyema as she has a complex right pleural effusion. Patient with a complex right pleural effusion and now with fever despite ceftriaxone, doxycycline and Flagyl. I have recommended that she be referred to higher level of facility for evaluation for a chest tube and possibly VATS. At this time the patient tells me she will not be transferred but she will undergo a repeat thoracentesis which is scheduled for today. Await repeat thoracentesis and if the pH is less than 7.2 she should be referred to higher level of care facility with thoracic surgery team. Subjective Date/time seen: 05/04/23 10:01 Interval history: 05/03/23:? this is a new pulmonary cons
--- NOTE | 2023-05-04 11:24 | PM.IMPN ---
Progress Note: A&P Assessment and Plan (1) Multifocal pneumonia: Code(s): J18.9 - Pneumonia, unspecified organism Status: Acute Assessment and Plan: Cont abx, started on rocephin, doxy, flagyl 05/01 Follow antigens and cultures, pending Nebs + tessalon perles + mucinex IS to bedside 05/01 CRP 36.3 and PCT 0.8, repeat 05/04 pending 05/04: appreciate pulm consult, f/u thoracentesis, plan to transfer for CT surgery support (2) Pleural effusion on right: Code(s): J90 - Pleural effusion, not elsewhere classified Status: Acute Assessment and Plan: Thoracentesis performed 05/02, cytology pending, repeat thoracentesis 05/04 (3) Insulin dependent type 2 diabetes mellitus: Code(s): E11.9 - Type 2 diabetes mellitus without complications; Z79.4 - [facility] (current) use of insulin Status: Acute Assessment and Plan: Accuchecks + SSI, blood glucose reviewed 05/04 a1c 7.1 (4) Psychiatric illness: Code(s): F99 - Mental disorder, not otherwise specified Status: Acute Assessment and Plan: Cont home meds, monitor, stable Plan DVT prophylaxis with SCDs GI prophylaxis not indicated Code status full code 05/04- Spoke with [facility] transfer center, Dr Bean, CTS, at [facility] [place], has accepted the patient in consultation. Awaiting bed and approval by hospitalist team. Dr Anders, hospitalist, has accepted the patient as primary team. Dr Osuna was the accepting hospitalist attending. Spoke with [facility] transfer center, Dr Mccabe, CTS at [place], who accepted the patient in consultation. Awaiting a bed. Subjective Date/time seen: 05/04/23 11:24 Interval history: 47-year-old female smoker with insulin-dependent type 2 diabetes, dyslipidemia, anxiety with bipolar disorder and schizophrenia as well as GERD presenting from [place] for multifocal pneumonia. No overnight events noted. No nausea, vomiting or diarrhea. No fevers or chills. Some CP and SOB today, continues to have coughing fits. Review of Systems Review of Systems: 12 point review of systems was assessed and was negative except as noted in the HPI Exam Narrative: General: No acute distress, alert and oriented per baseline HEENT: Atraumatic, normocephalic, mucous membranes moist CV: Regular rate and rhythm, S1, S2 Lungs: Coarse BS throughout, diminished at bases, scattered crackles Abdomen: Soft, nontender, nondistended Extremities: Normal to inspection, no edema Skin: No rashes noted, no lesions or wounds seen Psych: Euthymic, normal affect Objective Data Vital Signs Vital Signs: Vital Signs - 24 hr 05/03/23 12:41 05/03/23 12:53 05/03/23 13:00 Temperature Pulse Rate 81 93 Respiratory Rate 20 20 Blood Pressure Pulse Oximetry 99 Pulse Oximetry [At Rest After Therapy Session] Oxygen Delivery Room Air Oxygen Flow Rate 05/03/23 14:21 05/03/23 14:23 05/03/23 14:25 Temperature Pulse Rate 91 120 H 121 H Respiratory Rate Blood Pressure Pulse Oximetry 92 86 L 88 L Pulse Oximetry [At Rest After Therapy Session] Oxygen Delivery Room Air Room Air Nasal Cannula Oxygen Flow Rate 1 05/03/23 14:27 05/03/23 16:42 05/03/23 16:58 Temperature Pulse Rate 102 H 87 96 Respiratory Rate 24 H 20 Blood Pressure Pulse Oximetry 90 Pulse Oximetry [At Rest After Therapy Session] Oxygen Delivery Nasal Cannula Oxygen Flow Rate 2 05/03/23 12:00 05/03/23 17:30 05/03/23 19:47 Temperature 99.1 F Pulse Rate 89 103 H 92 Respiratory Rate 20 20 Blood Pressure 155/79 H Pulse Oximetry 98 Pulse Oximetry [At Rest After Therapy Session] Oxygen Delivery Oxygen Flow Rate 05/03/23 19:47 05/03/23 19:59 05/03/23 20:18 Temperature 100.9 F H Pulse Rate 96 Respiratory Rate 20 Blood Pressure Pulse Oximetry 99 Pulse Oximetry [At Rest After Therapy Session] Oxygen Delivery Nasal Cannula Oxygen Flow
[2023-05-04 12:14] LABS: CRP 23.9 mg/dL (<1.0)
[2023-05-04] MEDS: CEFEPIME 2 GM/NS 50 ML 2 GM/50 ML BAG IVPB (13:16)
[2023-05-04] MEDS: ACETAMINOPHEN 325 MG TABLET 650 MG PO (13:19)
[2023-05-04 13:59] LABS: Pleural fluid source Pleural fluid
[2023-05-04 14:00] LABS: Appearance Pleural Fluid Hazy (Clear)
[2023-05-04 14:01] LABS: Lymphocytes Pleural Fluid 20 %; Monocytes Pleural Fluid 16 %; Neutrophils Pleural Fluid 64 % (0-25)
[2023-05-04 14:13] LABS: Procalcitonin 0.3 ng/mL
--- NOTE | 2023-05-04 14:57 | PCRCNOTE ---
HOME O2 SET UP WITH [facility]. [employer] INFORMATION CLERK TO DROP OFF A POC IN PATIENT ROOM FOR TRANSPORT HOME. UPDATED [facility] WITH CORRECT PHONE FOR [facility]. THEY WILL AWAIT DISCHARGE FOR FURTHER HOME O2 EQUIPMENT SETUP.
--- NOTE | 2023-05-04 15:10 | PCRCNOTE ---
[facility] WILL FAX CPAP DOWNLOAD TO PFT LAB EDUIN
[2023-05-04 16:38] LABS: Glucose Point of Care 160 mg/dl (65-105)
--- NOTE | 2023-05-04 16:47 | PCPTNOTE ---
On 05/04/23, the student, [Corina Ramirez], provided care and completed [facility] documentation on this patient. I have reviewed the student's documentation and agree with the findings.
[2023-05-04] MEDS: INSULIN GLARGINE (*BKC) 100 UNITS/ML 25 UNITS SUB-Q (18:01)
[2023-05-04] MEDS: LORazepam (*CRX) 0.5 MG TABLET PO (18:54)
--- NOTE | 2023-05-04 19:33 | PC.NURSE ---
Patient is to be transferred to [facility] [address] Mccabe has accepted the patient. Report given to Ebony Coello to transfer. Dr. Chinchilla confirmed patient is OK to transport by [facility].
[2023-05-04 19:42] LABS: Glucose Point of Care 235 mg/dl (65-105)
[2023-05-06 19:45] LABS: Glucose Pleural Fluid 179 mg/dL; LDH Pleural Fluid 946 U/L; Total Protein Pleural Fluid 4.7 g/dL
[2023-05-06 20:03] LABS: Mycoplasma IgM Antibody Titer 513 U/mL (<770)
[2023-05-08 19:23] LABS: Glucose Pleural Fluid 46 mg/dL
[2023-05-09 23:31] LABS: Albumin Pleural Fluid 1.8 g/dL
[2023-05-10 20:54] LABS: Amylase, Pleural Fluid <10 U/L
[2023-05-14 12:29] LABS: Albumin Pleural Fluid 1.9 g/dL
--- NOTE | 2023-05-17 20:59 | PM.TDS ---
Transfer Discharge Sum: Prov Provider Date of admission: 05/02/23 07:23 Primary care physician: [employer] TECHNICIAN PHYSICIAN Admitting clinician: Ynes Chinchilla DO Consults: 05/03/23 Consult to Physician Routine Comment: Spoke w/ 1423 05/03 (, [place]) Consulting Provider: Buddy Arreaga call center team leader/MD group to consult: pulmonology Reason for consultation: pleural effusions with pna Has provider been notified: Yes DS: Admitting Diagnosis Discharge Date 05/04/23 Admitting Diagnosis Shortness of breath DS: Discharge Diagnosis Discharge Diagnosis (1) Multifocal pneumonia: Code(s): J18.9 - Pneumonia, unspecified organism Status: Acute Assessment and Plan: Cont abx, started on rocephin, doxy, flagyl 05/01 Follow antigens and cultures, pending Nebs + tessalon perles + mucinex IS to bedside 05/01 CRP 36.3 and PCT 0.8, repeat 05/04 pending 05/04: appreciate pulm consult, f/u thoracentesis, plan to transfer for CT surgery support (2) Pleural effusion on right: Code(s): J90 - Pleural effusion, not elsewhere classified Status: Acute Assessment and Plan: Thoracentesis performed 05/02, cytology pending, repeat thoracentesis 05/04 (3) Insulin dependent type 2 diabetes mellitus: Code(s): E11.9 - Type 2 diabetes mellitus without complications; 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 Awaiting bed and approval by hospitalist team. Dr Anders, hospitalist, has accepted the patient as primary team. Dr Osuna was the accepting hospitalist attending. Spoke with [facility] transfer center, Dr Mccabe, CTS at [place], who accepted the patient in consultation. Awaiting a bed. Transfer Discharge Sum: Med Medications Active and Home Medications: Home Medications buspirone 15 mg tablet 15 mg PO BID 05/01/23 [History Confirmed 05/01/23] divalproex 250 mg tablet,extended release 24 hr 250 mg PO QHS 05/01/23 [History Confirmed 05/01/23] divalproex 500 mg tablet,delayed release 500 mg PO Q12H 05/01/23 [History Confirmed 05/01/23] docusate sodium 100 mg tablet 100 mg PO DAILY 05/01/23 [History Confirmed 05/01/23] famotidine 40 mg tablet 40 mg PO DAILY 05/01/23 [History Confirmed 05/01/23] gabapentin 300 mg tablet 300 mg PO TID 05/01/23 [History Confirmed 05/01/23] haloperidol 2 mg tablet 2 mg PO TID 05/01/23 [History Confirmed 05/01/23] hydroxyzine HCl 25 mg tablet 25 mg PO BID PRN Anxiety 05/01/23 [History Confirmed 05/01/23] insulin glargine 100 unit/mL (3 mL) subcutaneous pen (Basaglar KwikPen U-100 Insulin) 25 unit subcut QPM 05/01/23 [History Confirmed 05/01/23] meloxicam 7.5 mg tablet 7.5 mg PO DAILY PRN Pain 05/01/23 [History Confirmed 05/01/23] mirtazapine 15 mg tablet 15 mg PO HS 05/01/23 [History Confirmed 05/01/23] prazosin 5 mg capsule 5 mg PO HS 05/01/23 [History Confirmed 05/01/23] simvastatin 40 mg tablet 40 mg PO HS 05/01/23 [History Confirmed 05/01/23] venlafaxine 75 mg tablet,extended release 24 hr 75 mg PO DAILY 05/01/23 [History Confirmed 05/01/23] Transfer Discharge Sum: Hosp Hospital Course Hospital course: 47-year-old female smoker with insulin-dependent type 2 diabetes, dyslipidemia, anxiety with bipolar disorder and schizophrenia as well as GERD presenting from [place] for multifocal pneumonia. Cont abx, started on rocephin, doxy, flagyl 05/01 Follow antigens and cultures, pending Nebs + tessalon perles + mucinex IS to bedside 05/01 CRP 36.3 and PCT 0.8, repeat 05/04 pending 05/04: appreciate pul
== END 2023-05-04 19:42 | disposition home or self-care (01) | DRG 194 ==
PROVIDERS: Internal Medicine Pulmonary Disease; Physician Assistant; Admitting Provider Student in an Organized Health Care Education/Training Program; Visit Provider Student in an Organized Health Care Education/Training Program
DX: J18.9 Pneumonia, unspecified organism (principal); J90 Pleural effusion, not elsewhere classified; E11.9 Type 2 diabetes mellitus without complications; Z79.4 Long term (current) use of insulin; F41.9 Anxiety disorder, unspecified; F20.9 Schizophrenia, unspecified; F31.9 Bipolar disorder, unspecified; K21.9 Gastro-esophageal reflux disease without esophagitis; F17.210 Nicotine dependence, cigarettes, uncomplicated; Z79.899 Other long term (current) drug therapy; Z88.5 Allergy status to narcotic agent
CPT/HCPCS: 32555; 36415; 36600; 71045; 71250; 80053; 80164; 82040; 82042; 82150; 82247; 82465; 82945; 82947; 82948; 83036; 83605; 83615; 83735; 83986; 84145; 84155; 84157; 84311; 84478; 85025; 85610; 86140; 86738; 87015; 87070; 87075; 87077; 87081; 87102; 87116; 87205; 87206; 88108; 88184; 88305; 89051; 94618; 94640; 96365; 96366; 96367; 96368; 97161; 97165; 97530; A9270; G0378; J0692; J0696; J1815; J1956; J2185; J2543; J3370; J7040

== ENCOUNTER 2023-05-13 10:14 | Outpatient (CLI) | payer OTHER, SELFPAY ==
--- NOTE | ~2023-05-13 | XR_ITS ---
XR hip LT min 2V 05/13/2023 10:50 Indication: Left hip pain Procedure: 3 views left hip Comparison: No prior studies for comparison. Findings: There is severe osteoarthritis of the left hip. No fracture, subluxation or dislocation. No significant soft tissue abnormality. No foreign bodies. Impression: 1: Severe osteoarthritis of the left hip. Reviewed, dictated and finalized at location L. Impression: 1: Severe osteoarthritis of the left hip.
--- NOTE | ~2023-05-13 | XR_ITS ---
XR lumbar spine min 4V 05/13/2023 10:50 INDICATION: Low back pain and radiculopathy TECHNIQUE: KUB COMPARISON: None FINDINGS: Bowel gas pattern is normal. Moderate colonic fecal loading. There are cholecystectomy clip s. There are surgical clips of the pelvis. There is no evidence of free air, mass, organomegaly, asci jimbo or obstruction. No abnormal calculi are seen. The bones appear intact. There is disc narrowing at L3-4, L4-5 and L5-S1 with grade 1 spondylolisthesis at L4-5. IMPRESSION: 1: Fecal impaction of the colon. Reviewed, dictated and finalized at location []
[2023-05-13 10:32] LABS: Basophils Absolute Auto 0.03 K/mm3 (0.00-0.10); Basophils Percent Auto 0.4 % (0.0-1.0); Eosinophils Absolute Auto 0.12 K/mm3 (0.02-0.50); Eosinophils Percent Auto 1.4 % (1.0-6.0); Hematocrit 32.3 % (35.0-49.0); Hemoglobin 9.8 g/dL (12.0-15.0); Immature Granulocyte Absolute 0.11 K/mm3 (0.00-0.00); Immature Granulocyte Percent A 1.3 % (0.0-0.0); Lymphocytes Absolute Auto 1.34 K/mm3 (1.10-4.50); Lymphocytes Percent Auto 15.6 % (18.0-42.0); Mean Corpuscular HGB Conc 30.3 g/dL (32.0-36.0); Mean Corpuscular Hemoglobin 28.2 pg (27.0-31.0); Mean Corpuscular Volume 92.8 fL (78.0-102.0); Mean Platelet Volume 8.9 fl (9.2-11.8); Monocytes Absolute Auto 0.85 K/mm3 (0.10-0.90); Monocytes Percent Auto 9.9 % (2.0-11.0); Neutrophils Absolute Auto 6.1 K/mm3 (1.7-7.2); Neutrophils Percent Auto 71.4 % (50.0-70.0); Platelet Count Result 362 K/mm3 (150-420); Red Blood Count 3.48 M/mm3 (4.20-5.40); Red Cell Distribution Width 15.3 % (11.6-14.4); White Blood Count 8.6 K/mm3 (4.8-10.8)
[2023-05-13 11:21] LABS: Alanine Aminotransferase 37 U/L (14-59); Albumin Level 1.6 g/dL (3.4-5.0); Alkaline Phosphatase 118 U/L (46-116); Anion Gap 8 mmol/L (8-16); Aspartate Amino Transferase 71 U/L (15-37); Bilirubin,Total 0.2 mg/dL (0.00-1.00); Blood Urea Nitrogen 6 mg/dL (7-18); Calcium 8.1 mg/dL (8.5-10.1); Carbon Dioxide 29 mmol/L (21-32); Chloride 103 mmol/L (98-108); Estimated Glomerular Filt Rate > 60; Glucose 139 mg/dL (70-99); Osmolality Calculated 289 mOsm/kg (285-295); Potassium 4.4 mmol/L (3.5-5.1); Sodium 140 mmol/L (136-145); Total Protein 6.2 g/dL (6.4-8.2)
[2023-05-13 11:26] LABS: Hemoglobin A1C 7.5 % (<5.7)
[2023-05-14 11:37] LABS: Ferritin 180 ng/mL (8-252); Iron 32 ug/dL (50-170); Percent Iron Saturation 20 % (12-57)
== END 2023-05-13 10:15 | disposition home or self-care (01) ==
LOC: CHSLAB 10:16
PROVIDERS: PCP Family Medicine; Visit Provider Family Medicine
DX: E11.9 Type 2 diabetes mellitus without complications (principal); M25.552 Pain in left hip; M54.16 Radiculopathy, lumbar region; K56.41 Fecal impaction; M16.12 Unilateral primary osteoarthritis, left hip
CPT/HCPCS: 36415; 72110; 73502; 80053; 82728; 83036; 83540; 83550; 84443; 85025

== ENCOUNTER 2023-05-19 09:59 | Outpatient (RCR) | payer OTHER, SELFPAY ==
--- NOTE | 2023-05-19 11:33 | PTOPEVAL1 ---
Assessment and note entered by Buddy Chan Evaluation Information Assessment Status Evaluation Diagnosis back and hip pain Onset 05/12/23 Subjective Information Pt. reports she developed an increase in low back for about 1 week. She reports that she has had on /off back pain for about 15 years. She states that pain is increased with just 5 minutes of walking. She reports that she can only stand for about 5-10 minutes due to back pain. She reports that she has no trouble sleeping. Pt. reports that she is currently taking oxycodone for pain. She has been taking pain medication regularly for the past month. She reports that she resides in nursing home care and does not drive. She reports that she usually does her own shopping, but has not since her back pain began. She reports that her goal is to decrease her pain. Reported Pain Level Pain Score 6: Self Report Assessment PT Clinical Summary Pt. is a 47 year old female who enters the clinic with low back pain and functional decline. She presents with impaired strength, impaired gait, impaired postural awareness, functional decline and pain. Continued skilled PT is indicated in order to improve these areas to allow the pt. to be able to complete all IADL's with improved efficiency and comfort. Plan of Care Interventions Electrical Stimulation,Hot Pack/Cold Pack,Manual Therapy,Neuro Re-education,Patient/Caregiver Educati,Therapeutic Activities,Therapeutic Exercise PT Services Indicated Yes Treatment Frequency and 2x/week x 10 visits Duration These treatments will address the objective and functional deficits as defined above. The patient will be advanced safely and appropriately in order for the patient to progress towards his/her prior level of function. Additional exercises will be introduced and as well as a comprehensive home exercise program upon discharge, if needed, ?to ensure carryover of functional gains achieved in the clinic. This treatment plan has been reviewed and agreement upon by the patient.
--- NOTE | 2023-05-19 11:34 | OPREHPOC ---
Outpatient Therapy Plan of Care This is a Multidisciplinary Plan of Care that may contain components documented by all disciplines (PT, OT, and ST.) PT Problem 1 PT Problem #1 Knowledge Deficit PT Goal 1 Goal Independent with a HEP focusing on core strength and mobitliy Target Visit 3 PT Problem 2 PT Problem #2 Impaired Balance PT Goal 1 Goal Improve tinetti score to 19 or greater indicating improved safety and function Target Visit 10 PT Problem 3 PT Problem #3 Impaired Gait PT Goal 1 Goal Ambulate a distance of 300' or greater indicating improved gait efficiency and improve ability to perform shopping. PT Problem 4 PT Problem #4 Impaired Strength PT Goal 1 Goal Increase gross l.e. strength to 4+/5 or greater Target Visit 8 PT Goal 2 Goal Be able to stand for 20 minutes without rest for improved IADL performance. Target Visit 10
== END 2023-06-15 23:59 | disposition home or self-care (01) ==
LOC: CHSPT 09:59
PROVIDERS: PCP Family Medicine; Visit Provider Family Medicine
DX: M54.16 Radiculopathy, lumbar region (principal); M54.42 Lumbago with sciatica, left side
CPT/HCPCS: 97014; 97110; 97140; 97161; G0283

== ENCOUNTER 2023-07-08 08:12 | Outpatient (CLI) | payer OTHER, SELFPAY ==
--- NOTE | ~2023-07-08 | XR_ITS ---
AP and lateral views of the left hip Clinical history: Pain Findings: No acute fracture or dislocation is seen. Osseous alignment is anatomic. There is advanced degenerative change of the left hip joint, with severe joint space narrowing and femoral head neck ju nction osteophyte formation. Soft tissues are unremarkable. Impression: Advanced osteoarthritis of the left hip joint. Reviewed, dictated and finalized at location . Impression: Advanced osteoarthritis of the left hip joint.
--- NOTE | ~2023-07-08 | XR_ITS ---
Left Knee Technique: AP, lateral, and sunrise views were obtained. Clinical History: Pain Findings: No fracture or dislocation is seen. Osseous alignment is anatomic. Mild tricompartmental de generative spurring noted. Soft tissues are unremarkable. No joint effusion is seen. Impression: Mild tricompartmental degenerative spurring. Reviewed, dictated and finalized at location . Impression: Mild tricompartmental degenerative spurring.
[2023-07-08 08:31] LABS: Basophils Absolute Auto 0.03 K/mm3 (0.00-0.10); Basophils Percent Auto 0.6 % (0.0-1.0); Eosinophils Absolute Auto 0.21 K/mm3 (0.02-0.50); Eosinophils Percent Auto 4.1 % (1.0-6.0); Hematocrit 45.9 % (35.0-49.0); Hemoglobin 14.7 g/dL (12.0-15.0); Immature Granulocyte Absolute 0.02 K/mm3 (0.00-0.00); Immature Granulocyte Percent A 0.4 % (0.0-0.0); Immature Reticulocyte Fraction 11.7 % (2.0-16.52); Lymphocytes Absolute Auto 2.05 K/mm3 (1.10-4.50); Lymphocytes Percent Auto 40.4 % (18.0-42.0); Mean Corpuscular Hemoglobin 28.7 pg (27.0-31.0); Mean Corpuscular Volume 89.6 fL (78.0-102.0); Mean Platelet Volume 9.4 fl (9.2-11.8); Monocytes Absolute Auto 0.47 K/mm3 (0.10-0.90); Monocytes Percent Auto 9.3 % (2.0-11.0); Neutrophils Absolute Auto 2.3 K/mm3 (1.7-7.2); Neutrophils Percent Auto 45.2 % (50.0-70.0); Platelet Count Result 255 K/mm3 (150-420); Red Blood Count 5.12 M/mm3 (4.20-5.40); Red Cell Distribution Width 14.5 % (11.6-14.4); Reticulocyte Hemoglobin Conten 34.5 pg (28.0-35.0); Reticulocyte Percent 2.32 % (0.50-1.50); Reticulocytes Absolute 0.12 M/mm3 (0.02-0.1); White Blood Count 5.1 K/mm3 (4.8-10.8)
[2023-07-08 08:34] LABS: Appearance Urine Clear (Clear); Bilirubin Urine Negative (Negative); Blood Urine Negative (Negative); Color Urine Yellow (Yellow); Glucose Urine UA Negative (Negative); Ketones Urine Trace (Negative); Leukocyte Esterase Ur Negative LEU/UL (Negative); Nitrate Urine Negative (Negative); Protein Urine Negative (Negative); Specific Grav Ur 1.025 (1.010-1.020)
[2023-07-08 08:39] LABS: Add Urine Microscopic? YES; Bacteria Urine Rare /hpf; RBC Urine None seen /hpf (0-2); Squamous Epithelial Cell Urine Few /hpf (Few); WBC Urine None seen /hpf (0-3)
[2023-07-08 09:39] LABS: Ferritin 16 ng/mL (8-252); Iron 44 ug/dL (50-170); Percent Iron Saturation 12 % (12-57)
== END 2023-07-08 08:13 | disposition home or self-care (01) ==
LOC: CHSLAB 08:18
PROVIDERS: PCP Family Medicine; Visit Provider Family Medicine
DX: D50.8 Other iron deficiency anemias (principal); N32.81 Overactive bladder; M25.562 Pain in left knee; M16.12 Unilateral primary osteoarthritis, left hip
CPT/HCPCS: 36415; 73502; 73562; 81001; 82728; 83540; 83550; 85025; 85046

== ENCOUNTER 2024-03-20 07:49 | Inpatient (IN) | payer OTHER, SELFPAY ==
[2024-03-20] VITALS (59 sets, daily range): BP systolic 80–208; BP diastolic 36–187; PULSE 106–136; RESP 20–34; TEMP 35.9–39; O2SAT 64–100; BMI 37.8
--- NOTE | ~2024-03-20 | US_ITS ---
US renal BI 03/20/2024 14:54 Procedure: Realtime transabdominal ultrasound of the kidneys and bladder. Indication: Acute renal insufficiency Comparison: No prior studies for comparison. Findings: Renal echotexture is normal bilaterally without hydronephrosis, contour deforming mass or r enal calculus. The right kidney measures 12.8 cm and left kidney measures 13.5 cm. There is a Bianchi c atheter in the bladder. Incidental note is made of fatty infiltration of the liver. Impression: 1: Unremarkable renal ultrasound. No stones, masses or hydronephrosis. Reviewed, dictated and finalized at location B. Impression: 1: Unremarkable renal ultrasound. No stones, masses or hydronephrosis.
--- NOTE | ~2024-03-20 | XR_ITS ---
XR chest 1V portable 03/20/2024 09:14 Indication: Severe shortness of breath Procedure: AP portable chest Comparison: CT chest report dated 05/03/2023 Findings: There is a 3.4 cm mass in the right upper lobe. There is diffuse bilateral airspace disease with perihilar interstitial prominence and peribronchial thickening. Borderline heart size. Impression: 1: Masslike density right upper lobe measuring 3.[address] chest with contrast recomm ended. 2: Diffuse bilateral infiltrates which may represent edema or pneumonia. Reviewed, dictated and finalized at location B. Impression: 1: Masslike density right upper lobe measuring 3.[address] ches t with contrast recommended. 2: Diffuse bilateral infiltrates which may represent edema or pneumonia.
--- NOTE | ~2024-03-20 | CT_ITS ---
EXAMINATION:CT diagnostic chest wo con DATE: 03/20/2024 10:23 INDICATION: Right chest mass. TECHNIQUE: Computed tomography (CT) of the chest was performed without intravenous contrast. Automate d exposure control and iterative reconstruction technique were employed. The dose-length product (DLP ) was 869.23 mGy-cm. COMPARISON: Chest single view 03/20/2024 FINDINGS: There are patchy groundglass opacities and crazy paving throughout the lungs. There are pat angelique airspace opacities with air bronchograms in right upper lobe and right middle lobe. There are air space opacities in left lower lobe. No pleural effusion. The heart size is normal. No pericardial eff usion. There is mild mediastinal lymphadenopathy, likely reactive. There is severe cervical spondylos is and moderate thoracic spondylosis. There is mild chronic anterior wedging of multiple vertebral romana dies. IMPRESSION: 1. Diffuse lung disease, consistent with pneumonia. 2. Mild mediastinal lymphadenopathy, likely reactive. Reviewed, dictated and finalized at location E.
--- NOTE | ~2024-03-20 | XR_ITS ---
EXAMINATION: XR chest ET placement DATE: 03/20/2024 11:33 INDICATION: Intubation. TECHNIQUE: A single frontal view of the chest was obtained. COMPARISON: Chest single view at 9:09 AM FINDINGS: There are patchy airspace opacities in all lung zones bilaterally. No pleural effusion or p neumothorax. The heart size is normal. The endotracheal tube tip is 3.3 cm above the moe. The naso gastric tube tip is beyond the inferior margin of the radiograph, but at least to the stomach. A righ t internal jugular central venous catheter is seen with tip at the superior cavoatrial junction. IMPRESSION: 1. Diffuse lung disease with worsening at the lung bases, consistent with pneumonia. Reviewed, dictated and finalized at location E. IMPRESSION: 1. Diffuse lung disease with worsening at the lung bases, consistent with pneum onia.
--- NOTE | ~2024-03-20 | XR_ITS ---
EXAMINATION: XR abdomen gastric tube insert DATE: 03/20/2024 11:33 INDICATION: Orogastric tube placement. TECHNIQUE: A supine view of the abdomen was obtained. COMPARISON: None. FINDINGS: The right lateral aspect of the abdomen is excluded. There is gaseous distention of the sto mach. There are no dilated loops of small or large bowel. The nasogastric tube tip is in the stomach. Surgical clips overlie the abdomen. IMPRESSION: 1. Nasogastric tube tip in the stomach. Reviewed, dictated and finalized at location E.
--- NOTE | ~2024-03-20 | XR_ITS ---
Portable chest x-ray Comparison: 03/22/2024 Clinical History: Respiratory failure Findings: Endotracheal tube, NG tube, and right IJ line are in satisfactory positions. There is diff use, severe pulmonary consolidation bilaterally. There is asymmetric lucency at the right lung apex, and a pneumothorax is not completely excluded. Cardiomediastinal silhouette is stable. Bones and sof t tissues are unremarkable. Impression: Diffuse pulmonary consolidation is present, with diagnostic considerations including severe pulmonary edema, diffuse pneumonia, ARDS. Correlate clinically. Lucency right lung apex may reflect region of parenchymal sparing versus possibility of a small pneum othorax. Consider crosstable lateral view to further assess for any possibility of pneumothorax. Support tubes, as above. Reviewed, dictated and finalized at location . Impression: Diffuse pulmonary consolidation is present, with diagnostic considerations incl uding severe pulmonary edema, diffuse pneumonia, ARDS. Correlate clinically. Lucency right lung apex may reflect region of parenchymal sparing versus possib ility of a small pneumothorax. Consider crosstable lateral view to further asse ss for any possibility of pneumothorax. Support tubes, as above.
--- NOTE | ~2024-03-20 | XR_ITS ---
XR chest 1V portable 03/22/2024 10:55 Indication: Respiratory failure. Pneumonia. Procedure: AP portable chest Comparison: Comparison to multiple prior studies sequentially, with oldest reviewed study dated 02/2023. Findings: There is an endotracheal tube tip 5.9 cm above the moe. Central line tip in the caudal a spect of the SVC. There has been progression of diffuse bilateral airspace disease which may represen t pneumonia, edema or ARDS. No pneumothorax. Impression: 1: Significant progression of diffuse bilateral airspace disease. Differential diagnosis includes jori ma, pneumonia and ARDS. Reviewed, dictated and finalized at location B. Impression: 1: Significant progression of diffuse bilateral airspace disease. Differential diagnosis includes edema, pneumonia and ARDS.
--- NOTE | 2024-03-20 07:58 | ECG_ITS ---
SEE SCANNED COPY FOR CONFIRMED REPORT MTDD
--- NOTE | 2024-03-20 08:04 | ED.SOB ---
HPI - SOB/Dyspnea General Chief Complaint: Shortness of Breath/Dyspnea Stated Complaint: resp distress History of Present Illness HPI Narrative: Pt presents with severe SOB and respiratory distress from [facility] in [place]. Per EMS, pt has COPD and developed respiratory distress this am. Pt on CPAP and had neb and solumedrol in route. Pt has improved per pt and EMS. Related Data Home Medications Medication Instructions Recorded Confirmed buspirone 15 mg tablet 15 mg PO BID 05/01/23 05/01/23 divalproex 250 mg tablet,extended 250 mg PO QHS 05/01/23 05/01/23 release 24 hr divalproex 500 mg tablet,delayed 500 mg PO Q12H 05/01/23 05/01/23 release docusate sodium 100 mg tablet 100 mg PO DAILY 05/01/23 05/01/23 famotidine 40 mg tablet 40 mg PO DAILY 05/01/23 05/01/23 gabapentin 300 mg tablet 300 mg PO TID 05/01/23 05/01/23 haloperidol 2 mg tablet 2 mg PO TID 05/01/23 05/01/23 hydroxyzine HCl 25 mg tablet 25 mg PO BID PRN Anxiety 05/01/23 05/01/23 insulin glargine 100 unit/mL (3 25 unit subcut QPM 05/01/23 05/01/23 mL) subcutaneous pen (Basaglar KwikPen U-100 Insulin) meloxicam 7.5 mg tablet 7.5 mg PO DAILY PRN Pain 05/01/23 05/01/23 mirtazapine 15 mg tablet 15 mg PO HS 05/01/23 05/01/23 prazosin 5 mg capsule 5 mg PO HS 05/01/23 05/01/23 simvastatin 40 mg tablet 40 mg PO HS 05/01/23 05/01/23 venlafaxine 75 mg tablet,extended 75 mg PO DAILY 05/01/23 05/01/23 release 24 hr Allergies Allergy/AdvReac Type Severity Reaction Status Date / Time codeine Allergy Rash Verified 05/01/23 08:09 Review of Systems Review of Systems: ROS unobtainable: Yes unobtainable due to medical condition [facility] Past Medical History Medical History (Updated 03/20/24 @ 12:32 by Tam Marquez MD) Anxiety Bipolar disorder Depression Dyslipidemia Gastroesophageal reflux disease Insulin dependent type 2 diabetes mellitus Schizophrenia Surgical History Surgical History (Updated 05/01/23 @ 21:12 by Hyun Marrero PA-C) History of cholecystectomy History of tubal ligation Family History Family History (Updated 05/01/23 @ 21:13 by Hyun Marrero PA-C) Other Family history unknown Social History Social History (Updated 05/01/23 @ 21:14 by Hyun Marrero PA-C) Social History: Surrogate decision maker: Patient is uncertain, would like to think it over. Code status: Full code. Smoking packs per day: 1 Smoking cigarettes per day: 20.0 Smoking status: Current every day smoker Tobacco type: cigarettes Alcohol intake: unknown Substance use: unknown Substance use type: amphetamines Other substance usage details: known use of meth at some point. Unknown if continued use. Last use: Early 2021. Lack of Transportation: YES Lack of Food: Sometimes True Current Housing: I Do Not Have Housing Concerned About Future Housing: YES Difficulty Paying Gas/Electric Bills: YES Difficulty Paying for Meds: YES Currently Unemployed: No Education: Don't Know Difficulty w/ Childcare or Family Care: No Additional living arrangements comments: Assisted living at [facility] in [place]. Spiritual care concerns: No Exam Const: General: ill appearing Nutritional Appearance: obese Eyes: Conjunctivae: conjunctivae normal EOM: EOMs intact bilaterally Neck: Neck: no lymphadenopathy and no meningeal signs Resp: Effort & Inspection: labored and retractions Auscultation: rales and wheezes Cardio: Rate: tachycardic Rhythm: regular rhythm GI: GI Palp: Yes Soft to palpation Auscultation: normal bowel sounds Skin: General skin exam: normal color Wounds: no wounds Neuro: General: moves all extremities, no meningeal signs and no focal motor deficits Speech: normal speech Extrem: General: normal to inspection and no clubbing, cyanosis or edema Psych: Affect: Anxious affect present Course Vital Signs Vital signs: Vital Signs Temperature 97.2 F L
[2024-03-20] MEDS: LORazepam INJ (*CRX) 2 MG/ML VIAL 0.5 MG IV PUSH (08:12)
[2024-03-20 08:19] LABS: Hematocrit 38.3 % (37.0-47.0); Hemoglobin 12.8 g/dL (12.0-15.0); Mean Corpuscular HGB Conc 33.4 g/dl (32-36); Mean Corpuscular Hemoglobin 32.2 pg (26-34); Mean Corpuscular Volume 96.5 fl (80-100); Mean Platelet Volume 10.8 fl (7.4-10.4); Platelet Count Result 178 k/mm3 (150-375); Red Blood Count 3.97 M/mm3 (4.2-5.4); Red Cell Distribution Width 13.2 % (11.5-14.5); White Blood Count 17.3 K/mm3 (4.5-10.0)
[2024-03-20 08:24] LABS: Alveolar/Arterial O2 Gradient 336.5 mmHg; Base Excess ABG -12.2 mEq/l (+/-2.0); Fractional Inspired Oxygen 60 %; HCO3 ABG 13.9 mEq/l (22.0-26.0); Oxygen Content ABG 15.4 %vol (16.0-22.0); PCO2 ABG 32.6 mmHg (35.0-45.0); PO2 ABG 55.4 mmHg (80.0-100.0); PO2 FiO2 Ratio Arterial Blood 0.92 %; Total Hemoglobin 13.6 g/dL (12.0-18.0)
[2024-03-20 08:27] LABS: Modified Allen's Test Pass; Oxygen Saturation ABG 84.3 % (95.0-100.0); Oxyhemoglobin 80.3 % THb (90.0-100.0); Site Drawn RIGHT RADIAL; pH ABG 7.247 (7.350-7.450)
[2024-03-20 08:28] LABS: Device OTHER DEVICE
[2024-03-20 08:29] LABS: Alanine Aminotransferase 24 U/L (6-35); Albumin Level 3.4 g/dL (3.5-5.1); Alkaline Phosphatase 207 U/L (38-126); Anion Gap 15 mmol/L (4-12); Aspartate Amino Transferase 28 U/L (14-36); Bilirubin,Total 0.6 mg/dL (0.2-1.3); Blood Urea Nitrogen 43 mg/dL (7-17); Calcium 8.6 mg/dL (8.4-10.2); Carbon Dioxide 16 mmol/L (22-30); Chloride 97 mmol/L (98-107); Estimated CRCL calculation 30 ml/min; Estimated Glomerular Filt Rate 24; Glucose 288 mg/dL (65-110); Magnesium 1.5 mg/dL (1.6-2.3); Potassium 3.8 mmol/L (3.4-5.0); Sodium 128 mmol/L (137-145)
[2024-03-20 08:33] LABS: Lactic Acid Reflex 6.6 mmol/L (0.7-2.0)
[2024-03-20 08:41] LABS: Troponin I < 0.012 ng/mL (0.000-0.034)
[2024-03-20 08:50] LABS: Band Neutrophils Percent 37 % (0-6); Lymphocytes Absolute Manual 0.69 K/mm3 (1.1-4.5); Monocytes Absolute Manual 0.51 K/mm3 (0.1-0.90); Monocytes Percent Manual 3 % (3-9); NT Pro B Type Natriuretic Pept 4240 pg/mL (19.9-100); Neutrophils Absolute Manual 16.08 K/mm3 (1.7-7.2); Neutrophils Percent Manual 56 % (46-73); Platelet Estimate Adequate (Adequate); Schistocytes None Seen; Total Cells Counted 100
[2024-03-20 09:05] LABS: INR 1.1; Prothrombin Time 14.9 Seconds (11.1-14.7)
[2024-03-20 09:06] LABS: Partial Thromboplastin Time 31.4 Seconds (22.3-36.8)
--- NOTE | 2024-03-20 09:22 | PC.NURSE ---
Pt remains anxious tolerating Bip-pap fair
--- NOTE | 2024-03-20 10:07 | PC.NURSE ---
03/20/24 10:03 - Nurse Note by Manju Gupta RN Acct Num: [id number] : 04/07/1960 Patient Age: 63 Pt removed Bi=pap attempting get out of bed. Bipap applied, settings unchanged. Pt repositioned for comfort instructed for safety to remain in bed. Initialized on 03/20/24 10:03 - END OF NOTE
[2024-03-20] MEDS: LORazepam INJ (*CRX) 2 MG/ML VIAL 1 MG IV PUSH (10:13)
[2024-03-20] MEDS: CEFEPIME 2 GM/NS 50 ML 2 GM/50 ML BAG IVPB ×2 (10:13→23:04)
[2024-03-20 10:27] LABS: Appearance Urine Cloudy (Clear); Bacteria Urine None Seen /hpf; Bilirubin Urine 1+ (Negative); Blood Urine Negative (Negative); Color Urine Dark Yellow (Yellow); Glucose Urine UA Negative (Negative); Granular Casts Urine Present /lpf; Ketones Urine Trace mg/dL (Negative); Leukocyte Esterase Ur 1+ LEU/UL (Negative); Nitrate Urine Negative (Negative); Non Pathogenic Casts >20; Protein Urine 1+ mg/dL (Negative); RBC Urine 0-2 /hpf (0-2); Specific Grav Ur 1.021 (1.001-1.035); Squamous Epithelial Cell Urine Few /hpf (Few)
[2024-03-20 10:30] LABS: Add Urine Microscopic? YES
--- NOTE | 2024-03-20 10:30 | ADMGEN ---
This patient, Desiree Cleveland, was admitted to Intensive Care Unit-5. Patient/family oriented to hospital policies and general routines including ID bracelet, bed and alarms, visiting hours, pain management, procedures, bathroom and other care routines, personal items, smoking policy, room service/diet, and visiting hours. Information on how to activate the Rapid Response Team has been discussed. Patient/Family are encouraged to report perceived risks to care and to ask questions if they do not understand what they are told or what they should do.
--- NOTE | 2024-03-20 10:47 | PC.NURSE ---
No change in assessment, lung sounds course & wet. Pt to CT Scan then transfer to ICU. Pt continues to be anxious & restless, pulling at Bi-pap mask. RN reassured pt she is safe to remain in stretcher during transfer.
[2024-03-20] MEDS: NOREPINEPHRINE 8 MG/D5W 250 ML 8 MG/250 ML BAG 9.38 MG IV CONT (11:03)
[2024-03-20] MEDS: MIDAZOLAM 100MG/NS 100ML(*CRX) 100 MG/100 ML BAG IV CONT (11:04)
[2024-03-20] MEDS: FENTANYL 2,500MCG/NS250ML(*CRX 2,500 MCG/250 ML BAG IV CONT (11:05)
[2024-03-20] MEDS: ETOMIDATE 20 MG/10 ML AMPUL IV PUSH (11:06)
[2024-03-20] MEDS: ROCURONIUM BROMIDE 50 MG/5 ML VIAL IV PUSH (11:06)
[2024-03-20 11:17] LABS: Reflex Lactic Acid Yes or No Add Lactic
--- NOTE | 2024-03-20 11:24 | WPDPROCEDUR ---
Procedures Intubation Intubation Date: 03/20/24 Intubation Time: 10:55 A pre-procedural Time-Out was completed immediately before starting the procedure and confirmed: Patient Identification, Site, Procedure, Patient Position and the Availability of Requisite Equipment: Yes Sedative: etomidate Paralytic: rocuronium Laryngoscope: fiber optic video scope Assist device used: fiber optic device ET tube size: 7.5 Tube secured depth (cm): 23 Tube secured location: lips Tube placement confirmation: visualized tube passing through cords, equal breath sounds bilaterally, no breath sounds over epigastrium and confirmation by capnometry Patient tolerated procedure: well Intubation complications: none
--- NOTE | 2024-03-20 11:25 | WPDPROCEDUR ---
Procedures Central Line Placement Right IJ: Central Line Date: 03/20/24 Central Line Time: 11:15 Performed Emergently - Given emergent patient condition, temporal constraints may have precluded informed consent.: Yes Consent: I have discussed with the patient and/or surrogate, the non-emergent placement of a central venous catheter, including its clinical necessity/indication and associated potential risks and complications. The patient and/or surrogate understand(s) and acknowledge(s) the need to proceed with central venous catheter insertion as an important element of the patient's clinical management. Time Out Performed: Yes Patient Position: supine Patient placed on monitor/pulse ox: Yes Provider Prep: mask, sterile gown, sterile gloves, Max. sterile barrier precautions, cap and hand hygiene with conventional soap/water or alcohol based hand rub Central line prep: 2% Chlorhexidine scrub and sterile full body sheet applied Local anesthesia used: lidocaine 1% Amount of anesthesia used (ml): 3 Sterile US Technique with sterile gel/sterile probe covers: Yes Central line lumen inserted: triple Slovenian: 12 Length (cm): 16 Depth of Insertion (cm): 16 Post Procedure: sutured in place, good blood return, all ports aspirated, flushed, capped, transparent dressing, hemostatic product, antimicrobial product, securement product and aseptic technique maintained throughout procedure Post procedure x-ray: tip of catheter in good position Patient tolerated procedure: well Complications: none
--- NOTE | 2024-03-20 11:27 | WPDCNINT ---
Assessment and Plan Assessment and plan (1) Septic shock: Code(s): A41.9 - Sepsis, unspecified organism; R65.21 - Severe sepsis with septic shock Status: Acute Assessment and Plan: Patient presented with shortness of breath, hypotension, tachypnea, elevated lactic acid, leukocytosis -source likely pneumonia/lungs -03/20: chest x-ray on admission shows diffuse bilateral infiltrates, 3.4 cm mass in the right upper lobe, correlate with CT scan -03/20: chest CT scan on admission showed diffuse bilateral lung disease consistent with pneumonia, mild mediastinal lymphadenopathy -lactic acid 6.6, decreased to 4.8 after 1 L IV fluid bolus -will give additional 1 L IV fluid bolus -started on cefepime and vancomycin (03/20) -03/20: Urine and blood cultures have been obtained -will order sputum culture -currently on Levophed, will maintain MAP > 65 mmHg for adequate end organ perfusion (2) Respiratory failure: Code(s): J96.90 - Respiratory failure, unspecified, unspecified whether with hypoxia or hypercapnia Status: Acute Assessment and Plan: Patient with diffuse infiltrates on chest x-ray and chest CT scan. Most likely pneumonia -03/20 intubated for impending respiratory failure, hypoxia, tachycardia -currently on CMV mode of ventilation, peep of 10, 100% FiO2 -ABGs reviewed, ventilator adjusted will repeat ABGs -added bronchodilators -continue antibiotics as above -sedated with fentanyl and Versed infusion, maintain RASS of 0 to -2, daily sedation vacation (3) Multifocal pneumonia: Code(s): J18.9 - Pneumonia, unspecified organism Status: Acute Assessment and Plan: Multifocal pneumonia, continue antibiotics as above -sputum cultures have been obtained and pending 03/20/2024: CT chest IMPRESSION: 1. Diffuse lung disease, consistent with pneumonia. 2. Mild mediastinal lymphadenopathy, likely reactive. (4) JACOB (acute kidney injury): Code(s): N17.9 - Acute kidney failure, unspecified Status: Acute Assessment and Plan: Acute kidney injury likely related to hypoxia, hypotension, septic shock, pneumonia, prerenal picture, decreased p.o. intake -creatinine on admission was 2.20 (baseline creatinine 0.6-0.8 in April 2023) -patient being fluid resuscitated in the ICU -continue maintenance IV fluid -obtain urine electrolytes, CK level, urine eosinophils -renal ultrasound -will obtain urine electrolytes -monitor renal function, urine output and electrolytes (5) Diabetes mellitus: Code(s): E11.9 - Type 2 diabetes mellitus without complications Status: Acute Assessment and Plan: Accu-Cheks and sliding scale insulin -patient may need Lantus if blood sugars remain elevated (6) Depression: Code(s): F32.A - Depression, unspecified Status: Acute Assessment and Plan: Patient does have some psych history, will start antidepressants, antianxiety patient's once patient more stable (7) Anxiety: Code(s): F41.9 - Anxiety disorder, unspecified Status: Acute (8) Dyslipidemia: Code(s): E78.5 - Hyperlipidemia, unspecified Status: Acute Assessment and Plan: Patient is on statin at home, start in a.m. (9) Gastroesophageal reflux disease: Code(s): K21.9 - Gastro-esophageal reflux disease without esophagitis Status: Acute Assessment and Plan: Protonix has been ordered Plan DVT prophylaxis: Lovenox Stress ulcer prophylaxis: Protonix Nutrition: NPO for now, will start tube feeds in a.m. Code Status: Full code Critical Care Time Spent: 57 minutes Due to a high probability of clinically significant, life threatening deterioration, the patient required my highest level of preparedness to intervene emergently and I personally spent this critical care time directly and personally managing the patient. This critical care time included obtaining a history; examining the patient; pulse oximetry; or
[2024-03-20 11:41] LABS: Influenza A QL RT-PCR Negative (Negative); Influenza B QL RT-PCR Negative (Negative); RSV RNA, RT-PCR Negative (Negative); SARS-CoV-2 RNA PCR Negative (Negative)
[2024-03-20] MEDS: SODIUM CHLORIDE 0.9% IV 1,000 ML 999 ML IV CONT ×2 (11:44→13:45)
[2024-03-20] MEDS: VANCOMYCIN 1,250 MG/NS 250 ML 1,250 MG/250 ML BAG 166.67 MG IVPB (11:45)
[2024-03-20 12:05] LABS: Lactic Acid 4.8 mmol/L (0.7-2.0)
[2024-03-20 12:17] LABS: MRSA (PCR) NOT DETECTED (NOT DETECTE)
[2024-03-20 12:22] LABS: Alveolar/Arterial O2 Gradient 530.1 mmHg; Base Excess ABG -15.5 mEq/l (+/-2.0); Carboxyhemoglobin 0.4 % THb (0-2.0); Fractional Inspired Oxygen 100 %; HCO3 ABG 19.4 mEq/l (22.0-26.0); Methemoglobin ABG 0.4 %THb (0-1.5); Oxygen Content ABG 16.7 %vol (16.0-22.0); PO2 ABG 79.4 mmHg (80.0-100.0); PO2 FiO2 Ratio Arterial Blood 0.79 %; Reduced Hemoglobin 11.5 %THb (0-5.0); Total Hemoglobin 13.5 g/dL (12.0-18.0)
[2024-03-20] MEDS: SODIUM BICARBONATE 8.4% 50 MEQ/50 ML SYRINGE IV PUSH ×2 (12:28→12:31)
[2024-03-20] MEDS: PANTOPRAZOLE SODIUM IV 40 MG VIAL IV PUSH (12:34)
[2024-03-20] MEDS: ENOXAPARIN 40 MG/0.4 ML SYRINGE SUB-Q (12:34)
[2024-03-20] MEDS: MAGNESIUM SULF 2 GM/WATER 50ML 2 GM/50 ML BAG IVPB (12:35)
[2024-03-20 12:36] LABS: PCO2 ABG 103.5 mmHg (35.0-45.0); pH ABG 6.891 (7.350-7.450)
[2024-03-20] MEDS: VANCOMYCIN 1,000 MG/NS 250 ML 1,000 MG/250 ML BAG 250 MG IVPB (12:36)
[2024-03-20 12:37] LABS: Oxygen Saturation ABG 83.3 % (95.0-100.0)
[2024-03-20 12:38] LABS: Device VENTILATOR; Oxyhemoglobin 87.7 % THb (90.0-100.0); Site Drawn LEFT RADIAL
[2024-03-20 12:40] LABS: Arterial Blood Gas PEEP 8 cmH2O; Arterial Blood Gas Tidal Volume 300 ml; Arterial Blood Gas Vent Mode CMV; Arterial Blood Gas Ventilator rate 24 /MIN
[2024-03-20 12:46] LABS: Glucose Point of Care 346 mg/dl (65-105)
[2024-03-20 12:56] LABS: MRSA (PCR) NOT DETECTED (NOT DETECTE)
[2024-03-20] MEDS: INSULIN ASPART (*BKC) 100 UNITS/ML SUB-Q ×2 (13:25→18:10)
[2024-03-20] MEDS: IPRATROPIUM 0.5 MG/ALBUTEROL SULFATE 2.5 MG AMPUL.NEB 3 ML INHALATION ×2 (13:44→20:46)
[2024-03-20] MEDS: CENTRAL LINE FLUSH 10 ML IV PUSH ×2 (14:00→23:00)
[2024-03-20 14:06] LABS: Alveolar/Arterial O2 Gradient 590.7 mmHg; Base Excess ABG -13.4 mEq/l (+/-2.0); Carboxyhemoglobin 0.3 % THb (0-2.0); Fractional Inspired Oxygen 100 %; HCO3 ABG 18.6 mEq/l (22.0-26.0); Methemoglobin ABG 0.2 %THb (0-1.5); Oxygen Content ABG 13.4 %vol (16.0-22.0); PO2 FiO2 Ratio Arterial Blood 0.47 %; Reduced Hemoglobin 27.4 %THb (0-5.0); Total Hemoglobin 13.2 g/dL (12.0-18.0)
[2024-03-20 14:07] LABS: Creatine Kinase 108 U/L (30-135)
[2024-03-20 14:13] LABS: PCO2 ABG 75.2 mmHg (35.0-45.0); pH ABG 7.012 (7.350-7.450)
[2024-03-20 14:14] LABS: PO2 ABG 47.1 mmHg (80.0-100.0)
[2024-03-20 14:15] LABS: Device VENTILATOR; Oxygen Saturation ABG 61.3 % (95.0-100.0); Oxyhemoglobin 72.1 % THb (90.0-100.0); Site Drawn RIGHT RADIAL
[2024-03-20 14:16] LABS: Arterial Blood Gas PEEP 10 cmH2O; Arterial Blood Gas Tidal Volume 380 ml; Arterial Blood Gas Vent Mode CMV; Arterial Blood Gas Ventilator rate 26 /MIN
[2024-03-20] MEDS: CISATRACURIUM BESYLATE 20 MG/10 ML VIAL 14.6 MG IV PUSH (15:10)
[2024-03-20] MEDS: CISATRACURIUM BESYLATE 200 MG in DEXTROSE 5% 80 ML 8.73 ML IV CONT (15:12)
[2024-03-20 15:18] LABS: Base Excess ABG -12.6 mEq/l (+/-2.0); Carboxyhemoglobin 0.3 % THb (0-2.0); Fractional Inspired Oxygen 100 %; HCO3 ABG 20.3 mEq/l (22.0-26.0); Methemoglobin ABG 0.3 %THb (0-1.5); Oxygen Content ABG 16.3 %vol (16.0-22.0); PO2 ABG 63.6 mmHg (80.0-100.0); PO2 FiO2 Ratio Arterial Blood 0.64 %; Reduced Hemoglobin 14.2 %THb (0-5.0); Total Hemoglobin 13.6 g/dL (12.0-18.0)
[2024-03-20 15:27] LABS: PCO2 ABG 85.4 mmHg (35.0-45.0); pH ABG 6.994 (7.350-7.450)
[2024-03-20 15:28] LABS: Device VENTILATOR; Oxygen Saturation ABG 77.9 % (95.0-100.0); Oxyhemoglobin 85.2 % THb (90.0-100.0); Site Drawn LEFT RADIAL
[2024-03-20 15:29] LABS: Arterial Blood Gas Ventilator rate 26 /MIN
[2024-03-20 15:30] LABS: Arterial Blood Gas PEEP 10 cmH2O; Arterial Blood Gas Tidal Volume 380 ml; Arterial Blood Gas Vent Mode CMV
[2024-03-20 15:57] LABS: Alveolar/Arterial O2 Gradient 569.1 mmHg; Base Excess ABG -12.6 mEq/l (+/-2.0); Carboxyhemoglobin 0.3 % THb (0-2.0); Fractional Inspired Oxygen 100 %; HCO3 ABG 19.9 mEq/l (22.0-26.0); Methemoglobin ABG 0.3 %THb (0-1.5); Oxygen Content ABG 16.5 %vol (16.0-22.0); PO2 ABG 62.9 mmHg (80.0-100.0); PO2 FiO2 Ratio Arterial Blood 0.63 %; Reduced Hemoglobin 13.4 %THb (0-5.0); Total Hemoglobin 13.6 g/dL (12.0-18.0)
--- NOTE | 2024-03-20 15:59 | WPDPROCEDUR ---
Procedures Arterial Line Arterial Line Date: 03/20/24 Arterial Line Time: 16:01 Perfomed Emergently - Given emergent patient conditions, temporal constraints may have precluded informed consent: Yes Time Out Performed: Yes Patient Position: supine Seismograph Helper Prep: sterile gown, sterile gloves, mask and hat Site: right and femoral Site Prep: chlorhexidine and sterile drape Skin Anesthesia: 1% lidocaine Technique used: ultrasound-guided Size (Gauge): 14 Length: 12 cm Closure/Dressing: suture, transparent dressing, hemostatic product, antimicrobial product and securement product Patient tolerated procedure: well Complications: none
[2024-03-20 16:01] LABS: pH ABG 7.008 (7.350-7.450)
[2024-03-20 16:02] LABS: Oxygen Saturation ABG 78.1 % (95.0-100.0)
[2024-03-20 16:03] LABS: Arterial Blood Gas Ventilator rate 26 /MIN; Device VENTILATOR; Site Drawn ARTLINE
[2024-03-20 16:04] LABS: Arterial Blood Gas PEEP 10 cmH2O; Arterial Blood Gas Tidal Volume 380 ml; Arterial Blood Gas Vent Mode CMV
[2024-03-20] MEDS: SODIUM BICARBONATE 8.4% 150 MEQ in WATER, STERILE FOR INJECTION 950 ML 75 MEQ IV CONT (17:00)
[2024-03-20] MEDS: SODIUM CHLORIDE 0.9% IV 500 ML IV CONT (17:05)
[2024-03-20] MEDS: SODIUM BICARBONATE 8.4% 50 MEQ/50 ML SYRINGE 100 MEQ IV PUSH ×2 (17:13→20:47)
[2024-03-20] MEDS: HYDROCORTISONE SODIUM SUCCINATE 100 MG/2 ML VIAL IV PUSH ×2 (17:13→23:04)
[2024-03-20 17:53] LABS: Glucose Point of Care 340 mg/dl (65-105)
--- NOTE | 2024-03-20 18:07 | PC.NURSE ---
Pt now has 0/4 twitches on TOF. MD aware, said to keep it Nimbex where it is.
[2024-03-20] MEDS: NOREPINEPHRINE 8 MG/D5W 250 ML 8 MG/250 ML BAG 46.88 MG IV CONT (20:26)
[2024-03-20 20:28] LABS: Alveolar/Arterial O2 Gradient 556.2 mmHg; Base Excess ABG -7.4 mEq/l (+/-2.0); Fractional Inspired Oxygen 100 %; HCO3 ABG 25.3 mEq/l (22.0-26.0); Oxygen Content ABG 18.1 %vol (16.0-22.0); Oxyhemoglobin 89.3 % THb (90.0-100.0); PO2 ABG 64.7 mmHg (80.0-100.0); PO2 FiO2 Ratio Arterial Blood 0.65 %; Total Hemoglobin 14.4 g/dL (12.0-18.0)
[2024-03-20] MEDS: ACETAMINOPHEN ELIXIR 325 MG/10.15 ML UDC 650 MG PO (20:30)
[2024-03-20 20:32] LABS: PCO2 ABG 92.1 mmHg (35.0-45.0); pH ABG 7.056 (7.350-7.450)
[2024-03-20 20:33] LABS: Device VENTILATOR; Oxygen Saturation ABG 81.3 % (95.0-100.0); Site Drawn ARTLINE
[2024-03-20 20:34] LABS: Arterial Blood Gas PEEP 12 cmH2O; Arterial Blood Gas Vent Mode CMV; Arterial Blood Gas Ventilator rate 26 /MIN
[2024-03-20 20:35] LABS: Arterial Blood Gas Tidal Volume 380 ml
--- NOTE | 2024-03-20 20:46 | PM.IMHP ---
H&P: HPI History of Present Illness Date/Time: 03/20/24 20:46 Chief Complaint: Shortness of breath Narrative: 48-year-old female with past medical history schizophrenia, depression, anxiety, bipolar disorder, insulin-dependent diabetes mellitus, GERD [facility] with complaints of shortness of breath. In [facility] she was found to be tachycardic with hypoxia requiring BiPAP. On admission leukocytosis present with WBC 22756, many bands at 37%, ABG demonstrating acidosis with a pH of 7.29 pCO2 32.6 and bicarb 13.9. She had hyponatremia with sodium 128 anion gap of 15 BUN 43 creatinine 2.2 lactic acidosis 4.8. Chest CT demonstrating diffuse lung disease/pneumonia and reactive mediastinal lymphadenopathy. Upon arrival to the ICU the patient continued to desaturate on BiPAP and was tachycardic in the 160s to 170s. She was noted to be using accessory muscles of respiration and hypotensive and was immediately intubated with the Critical Care Team. Right IJ triple-lumen catheter placed and Levophed started. Nimbex fentanyl and Versed started. Review of Systems Review of Systems: All systems reviewed & are unremarkable except as noted in HPI and below (Subjective) ROS unobtainable: Yes unobtainable due to endotracheal tube, unobtainable due to medical condition and unobtainable due to mental status PMFSH Past Medical History Medical History (Updated 03/20/24 @ 12:32 by Tam Marquez MD) Anxiety Bipolar disorder Depression Dyslipidemia Gastroesophageal reflux disease Insulin dependent type 2 diabetes mellitus Schizophrenia Surgical History Surgical History (Updated 05/01/23 @ 21:12 by Hyun Marrero PA-C) History of cholecystectomy History of tubal ligation Family History Family History (Updated 05/01/23 @ 21:13 by Hyun Marrero PA-C) Other Family history unknown Social History Social History (Updated 05/01/23 @ 21:14 by Hyun Marrero PA-C) Social History: Surrogate decision maker: Patient is uncertain, would like to think it over. Code status: Full code. Smoking packs per day: 1 Smoking cigarettes per day: 20.0 Smoking status: Current every day smoker Tobacco type: cigarettes Alcohol intake: unknown Substance use: unknown Substance use type: amphetamines Other substance usage details: known use of meth at some point. Unknown if continued use. Last use: Early 2021. Lack of Transportation: YES Lack of Food: Sometimes True Current Housing: I Do Not Have Housing Concerned About Future Housing: YES Difficulty Paying Gas/Electric Bills: YES Difficulty Paying for Meds: YES Currently Unemployed: No Education: Don't Know Difficulty w/ Childcare or Family Care: No Additional living arrangements comments: Assisted living at [facility] in [place]. Spiritual care concerns: No Meds Home Medications and Allergies Home Medications Medication Instructions Recorded Confirmed Type buspirone 15 mg tablet 15 mg PO BID 05/01/23 05/01/23 History divalproex 250 mg tablet,extended 250 mg PO QHS 05/01/23 05/01/23 History release 24 hr divalproex 500 mg tablet,delayed 500 mg PO Q12H 05/01/23 05/01/23 History release docusate sodium 100 mg tablet 100 mg PO DAILY 05/01/23 05/01/23 History famotidine 40 mg tablet 40 mg PO DAILY 05/01/23 05/01/23 History gabapentin 300 mg tablet 300 mg PO TID 05/01/23 05/01/23 History haloperidol 2 mg tablet 2 mg PO TID 05/01/23 05/01/23 History hydroxyzine HCl 25 mg tablet 25 mg PO BID PRN Anxiety 05/01/23 05/01/23 History insulin glargine 100 unit/mL (3 25 unit subcut QPM 05/01/23 05/01/23 History mL) subcutaneous pen (Basaglar KwikPen U-100 Insulin) meloxicam 7.5 mg tablet 7.5 mg PO DAILY PRN Pain 05/01/23 05/01/23 History mirtazapine 15 mg tablet 15 mg PO HS 05/01/23 05/01/23 History prazosin 5 mg capsule 5 mg PO HS 05/01/23 05/01/23 History simvastatin 40 mg tablet 40 mg PO HS
[2024-03-20] MEDS: PHENYLEPHRINE 1,000 MCG/10 ML SYRINGE 600 MCG IV PUSH (20:47)
[2024-03-20] MEDS: VASOPRESSIN INJ 100 UNITS in DEXTROSE 5% 95 ML IV CONT (20:53)
[2024-03-20 23:00] LABS: Base Excess ABG -4.2 mEq/l (+/-2.0); Fractional Inspired Oxygen 100 %; HCO3 ABG 27.5 mEq/l (22.0-26.0); Oxygen Content ABG 18.1 %vol (16.0-22.0); Oxyhemoglobin 88.3 % THb (90.0-100.0); PO2 ABG 58.5 mmHg (80.0-100.0); PO2 FiO2 Ratio Arterial Blood 0.58 %; Total Hemoglobin 14.6 g/dL (12.0-18.0)
[2024-03-20 23:03] LABS: PCO2 ABG 86.5 mmHg (35.0-45.0)
[2024-03-20 23:04] LABS: Device VENTILATOR; Hematocrit 41.1 % (37.0-47.0); Hemoglobin 13.7 g/dL (12.0-15.0); Mean Corpuscular HGB Conc 33.3 g/dl (32-36); Mean Corpuscular Hemoglobin 32.2 pg (26-34); Mean Corpuscular Volume 96.7 fl (80-100); Mean Platelet Volume 10.9 fl (7.4-10.4); Oxygen Saturation ABG 79.4 % (95.0-100.0); Platelet Count Result 258 k/mm3 (150-375); Red Blood Count 4.25 M/mm3 (4.2-5.4); Red Cell Distribution Width 13.7 % (11.5-14.5); Site Drawn ARTLINE
[2024-03-20] MEDS: MINERAL OIL/WHITE PETROLATUM OINTMENT 1 APPLIC EACH EYE (23:04)
[2024-03-20 23:05] LABS: Arterial Blood Gas PEEP 12 cmH2O; Arterial Blood Gas Tidal Volume 400 ml; Arterial Blood Gas Vent Mode CMV; Arterial Blood Gas Ventilator rate 26 /MIN
[2024-03-20 23:16] LABS: Alanine Aminotransferase 38 U/L (6-35); Alkaline Phosphatase 210 U/L (38-126); Anion Gap 12 mmol/L (4-12); Aspartate Amino Transferase 71 U/L (14-36); Blood Urea Nitrogen 52 mg/dL (7-17); Calcium 6.9 mg/dL (8.4-10.2); Carbon Dioxide 24 mmol/L (22-30); Chloride 99 mmol/L (98-107); Estimated CRCL calculation 37 ml/min; Estimated Glomerular Filt Rate 28; Glucose 344 mg/dL (65-110); Lactic Acid Reflex 3.7 mmol/L (0.7-2.0); Magnesium 2.6 mg/dL (1.6-2.3); Potassium 4.8 mmol/L (3.4-5.0); Sodium 135 mmol/L (137-145)
[2024-03-21] VITALS (83 sets, daily range): BP systolic 85–119; BP diastolic 45–60; PULSE 62–149; RESP 26–28; TEMP 37.3–39.7; O2SAT 78–100
[2024-03-21] MEDS: NOREPINEPHRINE 8 MG/D5W 250 ML 8 MG/250 ML BAG 56.25 MG IV CONT (00:56)
[2024-03-21] MEDS: INSULIN ASPART (*BKC) 100 UNITS/ML SUB-Q ×2 (01:03→08:06)
[2024-03-21 01:20] LABS: Glucose Point of Care 346 mg/dl (65-105)
[2024-03-21 01:46] LABS: Creatinine Urine 176.2 mg/dL
[2024-03-21 01:50] LABS: Potassium Urine Random 65.1 meq/L; Sodium Urine Random 14 meq/L
[2024-03-21 02:01] LABS: Reflex Lactic Acid Yes or No Add Lactic
[2024-03-21] MEDS: AMIODARONE 150 MG/D5W 100 ML 150 MG/100 ML BAG 600 MG IV CONT ×3 (03:03→22:30)
[2024-03-21] MEDS: AMIODARONE 360 MG/D5W 200 ML 360 MG/200 ML BAG 33.33 MG IV CONT ×3 (03:13→15:05)
[2024-03-21] MEDS: CISATRACURIUM BESYLATE 200 MG in DEXTROSE 5% 80 ML 5.82 ML IV CONT ×2 (03:15→22:56)
[2024-03-21 03:21] LABS: Eosinophil Urine None Seen % (None Seen); Urine Eos QC 2nd Tech Confirmed
[2024-03-21] MEDS: SODIUM BICARBONATE 8.4% 50 MEQ/50 ML SYRINGE 100 MEQ IV PUSH (04:43)
[2024-03-21] MEDS: NOREPINEPHRINE 8 MG/D5W 250 ML 8 MG/250 ML BAG 45 MG IV CONT (05:49)
[2024-03-21] MEDS: FUROSEMIDE INJ 40 MG/4 ML VIAL IV PUSH (05:50)
[2024-03-21] MEDS: HYDROCORTISONE SODIUM SUCCINATE 100 MG/2 ML VIAL IV PUSH ×3 (05:50→21:50)
[2024-03-21 06:14] LABS: Base Excess ABG -3.3 mEq/l (+/-2.0); Carboxyhemoglobin 0.3 % THb (0-2.0); Fractional Inspired Oxygen 100 %; HCO3 ABG 27.9 mEq/l (22.0-26.0); Methemoglobin ABG 0.2 %THb (0-1.5); Oxygen Content ABG 16.9 %vol (16.0-22.0); PO2 ABG 54.3 mmHg (80.0-100.0); PO2 FiO2 Ratio Arterial Blood 0.54 %; Reduced Hemoglobin 13.3 %THb (0-5.0)
[2024-03-21 06:15] LABS: pH ABG 7.141 (7.350-7.450)
[2024-03-21 06:16] LABS: PCO2 ABG 83.7 mmHg (35.0-45.0)
[2024-03-21 06:17] LABS: Oxygen Saturation ABG 76.6 % (95.0-100.0); Oxyhemoglobin 86.2 % THb (90.0-100.0); Site Drawn ARTLINE
[2024-03-21 06:18] LABS: Device VENTILATOR
[2024-03-21 06:19] LABS: Arterial Blood Gas PEEP 14 cmH2O; Arterial Blood Gas Tidal Volume 400 ml; Arterial Blood Gas Vent Mode CMV; Arterial Blood Gas Ventilator rate 26 /MIN; Hematocrit 39.5 % (37.0-47.0); Mean Corpuscular HGB Conc 32.9 g/dl (32-36); Mean Corpuscular Hemoglobin 32.3 pg (26-34); Platelet Count Result 225 k/mm3 (150-375); Red Blood Count 4.03 M/mm3 (4.2-5.4); Red Cell Distribution Width 13.8 % (11.5-14.5); White Blood Count 21.3 K/mm3 (4.5-10.0)
[2024-03-21] MEDS: CENTRAL LINE FLUSH 10 ML IV PUSH ×3 (06:39→21:51)
[2024-03-21] MEDS: INSULIN HUMAN REGULAR (*BKC) 100 UNITS/ML 10 UNITS IV PUSH (06:40)
[2024-03-21 06:41] LABS: Glucose Point of Care 409 mg/dl (65-105)
[2024-03-21 06:44] LABS: Alanine Aminotransferase 36 U/L (6-35); Albumin Level 2.9 g/dL (3.5-5.1); Alkaline Phosphatase 181 U/L (38-126); Anion Gap 12 mmol/L (4-12); Aspartate Amino Transferase 62 U/L (14-36); Bilirubin,Total 1.1 mg/dL (0.2-1.3); Blood Urea Nitrogen 60 mg/dL (7-17); Calcium 6.4 mg/dL (8.4-10.2); Carbon Dioxide 28 mmol/L (22-30); Chloride 95 mmol/L (98-107); Creatine Kinase 561 U/L (30-135); Estimated CRCL calculation 33 ml/min; Estimated Glomerular Filt Rate 25; Glucose 420 mg/dL (65-110); Magnesium 2.6 mg/dL (1.6-2.3); Phosphorus 11.4 mg/dL (2.5-4.5); Potassium 4.8 mmol/L (3.4-5.0); Sodium 135 mmol/L (137-145)
[2024-03-21 06:45] LABS: Lactic Acid Reflex 4.3 mmol/L (0.7-2.0)
[2024-03-21 06:56] LABS: Band Neutrophils Percent 10 % (0-6); Lymphocytes Absolute Manual 0.42 K/mm3 (1.1-4.5); Monocytes Absolute Manual 0.63 K/mm3 (0.1-0.90); Monocytes Percent Manual 3 % (3-9); Neutrophils Absolute Manual 20.23 K/mm3 (1.7-7.2); Neutrophils Percent Manual 85 % (46-73); Nucleated Red Blood Cells 2 %; Total Cells Counted 100
[2024-03-21 06:57] LABS: Platelet Estimate Adequate (Adequate); Schistocytes None Seen
[2024-03-21 07:10] LABS: CRP > 45.0 mg/dL (<1.0)
--- NOTE | 2024-03-21 07:36 | ECG_ITS ---
SEE SCANNED COPY FOR CONFIRMED REPORT MTDD
[2024-03-21 07:59] LABS: Glucose Point of Care 377 mg/dl (65-105)
[2024-03-21] MEDS: MINERAL OIL/WHITE PETROLATUM OINTMENT 1 APPLIC EACH EYE ×2 (07:59→20:38)
[2024-03-21] MEDS: PANTOPRAZOLE SODIUM IV 40 MG VIAL IV PUSH (08:00)
[2024-03-21] MEDS: CEFEPIME 2 GM/NS 50 ML 2 GM/50 ML BAG IVPB ×2 (08:00→20:38)
[2024-03-21] MEDS: IPRATROPIUM 0.5 MG/ALBUTEROL SULFATE 2.5 MG AMPUL.NEB 3 ML INHALATION ×2 (08:15→14:17)
[2024-03-21] MEDS: ACETAMINOPHEN ELIXIR 325 MG/10.15 ML UDC 650 MG PO (09:03)
[2024-03-21] MEDS: CALCIUM GLUC 2,000 MG/NS 100ML 2,000 MG/100 ML BAG 100 MG IVPB (09:03)
[2024-03-21] MEDS: INSULIN HUMAN REGULAR (*BKC) 100 UNITS in SODIUM CHLORIDE 0.9% IV 99 ML 10 UNITS IV CONT (09:04)
[2024-03-21] MEDS: SODIUM BICARBONATE 8.4% 50 MEQ/50 ML SYRINGE IV PUSH ×3 (09:05→21:51)
[2024-03-21] MEDS: DOXYCYCLINE 100 MG/NS 100 ML 100 MG/100 ML BAG IVPB ×2 (09:05→21:07)
[2024-03-21 09:56] LABS: Glucose Point of Care 367 mg/dl (65-105)
[2024-03-21 09:56] LABS: Glucose Point of Care 396 mg/dl (65-105)
[2024-03-21 10:12] LABS: Lactic Acid 4.7 mmol/L (0.7-2.0)
[2024-03-21 10:52] LABS: Glucose Point of Care 352 mg/dl (65-105)
[2024-03-21] MEDS: NOREPINEPHRINE 8 MG/D5W 250 ML 8 MG/250 ML BAG 39.38 MG IV CONT (11:04)
[2024-03-21] MEDS: ENOXAPARIN 40 MG/0.4 ML SYRINGE SUB-Q (11:05)
--- NOTE | 2024-03-21 12:40 | WPDINTPN ---
Progress Note: A&P Assessment and Plan (1) Septic shock: Code(s): A41.9 - Sepsis, unspecified organism; R65.21 - Severe sepsis with septic shock Status: Acute Assessment and Plan: Patient presented with shortness of breath, hypotension, tachypnea, elevated lactic acid, leukocytosis Source of sepsis is likely pneumonia although her UA is also suggestive of UTI -03/20: chest CT scan on admission showed diffuse bilateral lung disease consistent with pneumonia, mild mediastinal lymphadenopathy Patient has received significant IV fluids and will hold further IV fluids at this time Continue Levophed and vasopressin Continue cefepime and vancomycin (03/20) add doxycycline (03/21) -03/20: Urine and blood cultures have been obtained Pending sputum culture -will order mycoplasma IgM urine Legionella and urine pneumococcal antigen Add 25% albumin (2) Respiratory failure: Code(s): J96.90 - Respiratory failure, unspecified, unspecified whether with hypoxia or hypercapnia Status: Acute Assessment and Plan: Patient with diffuse infiltrates on chest x-ray and chest CT scan. Most likely multifocal pneumonia leading to severe hypoxia and respiratory failure -03/20 intubated for impending respiratory failure, hypoxia, tachycardia -currently on CMV mode of ventilation, peep of 14, 100% FiO2 and patient in prone position -ABGs reviewed continue current ventilation has peak pressures are not limit and tolerate permissive hypercapnia -sodium bicarbonate for mixed acidosis -continue bronchodilators -continue antibiotics as above -currently sedated with fentanyl and Versed infusion and paralyzed with Nimbex infusion -patient too unstable to transfer to tertiary facility at this time (3) Multifocal pneumonia: Code(s): J18.9 - Pneumonia, unspecified organism Status: Acute Assessment and Plan: See above (4) JACOB (acute kidney injury): Code(s): N17.9 - Acute kidney failure, unspecified Status: Acute Assessment and Plan: Acute kidney injury likely related to hypoxia, hypotension, septic shock, pneumonia, -creatinine on admission was 2.20 (baseline creatinine 0.6-0.8 in April 2023) -patient procedure fluid resuscitated in the ICU -cautious IV fluid -obtain urine electrolytes, CK level, urine eosinophils -renal ultrasound unremarkable -consult nephrology -monitor renal function, urine output and electrolytes (5) Diabetes mellitus: Code(s): E11.9 - Type 2 diabetes mellitus without complications Status: Acute Assessment and Plan: Uncontrolled hyperglycemia. Start insulin infusion and Lantus (6) Dyslipidemia: Code(s): E78.5 - Hyperlipidemia, unspecified Status: Acute Assessment and Plan: Patient is on statin at home, start in a.m. (7) Gastroesophageal reflux disease: Code(s): K21.9 - Gastro-esophageal reflux disease without esophagitis Status: Acute Assessment and Plan: Protonix has been ordered (8) Acidosis: Code(s): E87.20 - Acidosis, unspecified Status: Acute Assessment and Plan: Mixed metabolic and respiratory acidosis Unable to further increased ventilation due to high pressures. Receive hypercapnia IV bicarb ordered (9) Atrial fibrillation with rapid ventricular response: Code(s): I48.91 - Unspecified atrial fibrillation Status: Acute Assessment and Plan: Patient went into AFib with RVR overnight and was started on amiodarone infusion. This morning when I evaluated the patient she was still in RVR and I gave patient other amiodarone bolus. She has now converted to sinus rhythm. Continue amiodarone but decrease rate to 0.5. Add aspirin. Hold therapeutic anticoagulation at this time less AFib recurs and persists. Will obtain echocardiogram patient is able to tolerate supine position Plan DVT prophylaxis: Lovenox Stress ulcer prophylaxis: Protonix Nutrition: NPO for now, Code
[2024-03-21 12:51] LABS: Anion Gap 8 mmol/L (4-12); Blood Urea Nitrogen 63 mg/dL (7-17); Calcium 6.7 mg/dL (8.4-10.2); Carbon Dioxide 34 mmol/L (22-30); Chloride 93 mmol/L (98-107); Estimated CRCL calculation 33 ml/min; Estimated Glomerular Filt Rate 24; Glucose 269 mg/dL (65-110); Potassium 4.1 mmol/L (3.4-5.0); Sodium 135 mmol/L (137-145)
[2024-03-21 13:09] LABS: Glucose Point of Care 286 mg/dl (65-105)
[2024-03-21 13:09] LABS: Glucose Point of Care 248 mg/dl (65-105)
[2024-03-21] MEDS: ALBUMIN HUMAN 25% 25 GM/100 ML 100 ML IVPB ×2 (13:11→17:07)
[2024-03-21] MEDS: ASPIRIN 325 MG TABLET FEED TUBE (13:11)
[2024-03-21] MEDS: INSULIN GLARGINE (*BKC) 100 UNITS/ML 30 UNITS SUB-Q (13:12)
[2024-03-21 14:03] LABS: Alveolar/Arterial O2 Gradient 561.4 mmHg; Base Excess ABG -0.3 mEq/l (+/-2.0); Fractional Inspired Oxygen 100 %; HCO3 ABG 31.3 mEq/l (22.0-26.0); Oxygen Content ABG 16.3 %vol (16.0-22.0); PO2 ABG 58.9 mmHg (80.0-100.0); PO2 FiO2 Ratio Arterial Blood 0.59 %; Total Hemoglobin 13.4 g/dL (12.0-18.0)
[2024-03-21 14:04] LABS: Glucose Point of Care 251 mg/dl (65-105)
[2024-03-21 14:07] LABS: pH ABG 7.146 (7.350-7.450)
[2024-03-21 14:08] LABS: Oxygen Saturation ABG 80.5 % (95.0-100.0); PCO2 ABG 92.7 mmHg (35.0-45.0)
[2024-03-21 14:09] LABS: Arterial Blood Gas Vent Mode CMV; Arterial Blood Gas Ventilator rate 26 /MIN; Device VENTILATOR; Oxyhemoglobin 86.4 % THb (90.0-100.0); Site Drawn ARTLINE
[2024-03-21 14:10] LABS: Arterial Blood Gas PEEP 14 cmH2O; Arterial Blood Gas Tidal Volume 400 ml
[2024-03-21] MEDS: FENTANYL 2,500MCG/NS250ML(*CRX 2,500 MCG/250 ML BAG 10 MCG IV CONT (15:09)
[2024-03-21] MEDS: MIDAZOLAM 100MG/NS 100ML(*CRX) 100 MG/100 ML BAG IV CONT (15:11)
[2024-03-21] MEDS: INSULIN HUMAN REGULAR (*BKC) 100 UNITS in SODIUM CHLORIDE 0.9% IV 99 ML 16 UNITS IV CONT (15:15)
[2024-03-21 15:25] LABS: Glucose Point of Care 207 mg/dl (65-105)
[2024-03-21] MEDS: EPOPROSTENOL SODIUM 0.5 MG VIAL 1 MG INHALATION ×2 (15:35→20:10)
[2024-03-21 16:29] LABS: Amphetamine Screen Urine Negative (Negative); Barbiturate Screen Urine Negative (Negative); Benzodiazepines Screen Urine Positive (Negative); Cannabinoid Screen Urine Positive (Negative); Cocaine Screen Urine Negative (Negative); Methadone Screen Urine Negative (Negative); Opiate Screen Urine Negative (Negative); Phencyclidine Screen Urine Negative (Negative)
[2024-03-21 17:12] LABS: Glucose Point of Care 165 mg/dl (65-105)
[2024-03-21 17:28] LABS: Anion Gap 8 mmol/L (4-12); Blood Urea Nitrogen 69 mg/dL (7-17); Calcium 6.5 mg/dL (8.4-10.2); Carbon Dioxide 35 mmol/L (22-30); Chloride 93 mmol/L (98-107); Estimated CRCL calculation 32 ml/min; Estimated Glomerular Filt Rate 23; Glucose 141 mg/dL (65-110); Potassium 3.8 mmol/L (3.4-5.0); Sodium 136 mmol/L (137-145)
[2024-03-21] MEDS: NOREPINEPHRINE 8 MG/D5W 250 ML 8 MG/250 ML BAG 37.5 MG IV CONT (17:35)
[2024-03-21 18:22] LABS: Glucose Point of Care 253 mg/dl (65-105)
[2024-03-21 18:22] LABS: Glucose Point of Care 143 mg/dl (65-105)
[2024-03-21 19:05] LABS: Glucose Point of Care 116 mg/dl (65-105)
[2024-03-21 20:04] LABS: Alveolar/Arterial O2 Gradient 593.9 mmHg; Base Excess ABG 2.3 mEq/l (+/-2.0); Carboxyhemoglobin 0.2 % THb (0-2.0); Fractional Inspired Oxygen 100 %; HCO3 ABG 28.9 mEq/l (22.0-26.0); Methemoglobin ABG 0.1 %THb (0-1.5); Oxygen Content ABG 15.8 %vol (16.0-22.0); Oxygen Saturation ABG 91.6 % (95.0-100.0); Oxyhemoglobin 92.1 % THb (90.0-100.0); PCO2 ABG 53.7 mmHg (35.0-45.0); PO2 ABG 65.4 mmHg (80.0-100.0); PO2 FiO2 Ratio Arterial Blood 0.65 %; Reduced Hemoglobin 7.6 %THb (0-5.0); Total Hemoglobin 12.2 g/dL (12.0-18.0); pH ABG 7.349 (7.350-7.450)
[2024-03-21 20:06] LABS: Arterial Blood Gas Vent Mode CMV; Arterial Blood Gas Ventilator rate 26 /MIN; Device VENTILATOR; Modified Allen's Test Pass; Site Drawn ARTLINE
[2024-03-21 20:07] LABS: Arterial Blood Gas PEEP 14 cmH2O; Arterial Blood Gas Tidal Volume 400 ml
[2024-03-21 20:15] LABS: Glucose Point of Care 139 mg/dl (65-105)
[2024-03-21 21:47] LABS: Anion Gap 10 mmol/L (4-12); Blood Urea Nitrogen 68 mg/dL (7-17); Calcium 6.3 mg/dL (8.4-10.2); Carbon Dioxide 32 mmol/L (22-30); Chloride 93 mmol/L (98-107); Estimated CRCL calculation 29 ml/min; Estimated Glomerular Filt Rate 21; Glucose 168 mg/dL (65-110); Potassium 3.8 mmol/L (3.4-5.0); Sodium 135 mmol/L (137-145)
[2024-03-21] MEDS: VANCOMYCIN 1,500 MG/NS 500 ML 1,500 MG/500 ML BAG 250 MG IVPB (22:58)
[2024-03-21 23:16] LABS: Glucose Point of Care 191 mg/dl (65-105)
[2024-03-22] VITALS (73 sets, daily range): BP systolic 95–132; BP diastolic 40–79; PULSE 86–137; RESP 26–28; TEMP 36.2–39.5; O2SAT 83–97; BMI 40.7
--- NOTE | 2024-03-22 | ECHO_ITS ---
Patient Info Name: Desiree Cleveland Age: 48 years : 1975 Gender: Female Ht: 63 in Wt: 230 lbs BSA: 2.21 m2 HR: 92 bpm BP: 132 / 64 mmHg Heart Rhythm: Sinus Rhythm Technical Quality: Fair Exam Date: 03/22/2024 10:10 AM Exam Location: Echo Lab Patient Status: Inpatient Admit Date: 03/20/2024 Staff Ordering Physician: Dakota Bhakta MD Human Resources Trainee: July Reyes RDCS Attending Provider: Pérez Kent MD Exam Type: CA echo doppler color flow Study Info Indications - shock Complete two-dimensional, color flow and Doppler transthoracic echocardiogram is performed with contrast to opacify the left ventricle and to improve the deliniation of the left ventricle endocardial borders. Contrast/Agitated Saline Contrast/Ag. Saline: Definity Amount: 2.00 ml Administered By: July Reyes RDCS Existing IV Access: Yes IV Access Condition: patent with no signs of infiltration Summary 1. Technically difficult study with limited views. Regional wall motion assessment limited due to poor endomyocardial border definition. Definity contrast administered. 2. Left ventricular chamber dimension is normal. 3. Left ventricular systolic function is normal, estimated at 65-70%. 4. There is no increased left ventricular wall thickness. 5. The left ventricular diastolic function is normal. 6. There is no hemodynamically significant aortic valve stenosis, although valve not well visualized. 7. There is no mitral valve regurgitation. 8. There is trace tricuspid valve regurgitation. 9. Mild pulmonary hypertension, estimated pulmonary arterial systolic pressure is 45 mmHg. Left Ventricle Left ventricular chamber dimension is normal. Left ventricular systolic function is normal, estimated at 65-70%. There is no increased left ventricular wall thickness. The left ventricular diastolic function is normal. Technically difficult study with limited views. Regional wall motion assessment limited due to poor endomyocardial border definition. Definity contrast administered. Right Ventricle Right ventricular chamber dimension is normal. Right ventricular systolic function is normal. Left Atria Left atrial chamber dimension is normal. Right Atria Right atrial chamber dimension is normal. Aortic Valve The aortic valve is not well visualized. There is no hemodynamically significant aortic valve stenosis, although valve not well visualized. There is no aortic valve regurgitation. Pulmonic Valve The pulmonic valve is not well visualized. Mitral Valve The mitral valve has thickened leaflets. There is no mitral valve regurgitation. Tricuspid Valve The tricuspid valve leaflets are normal. There is trace tricuspid valve regurgitation. Mild pulmonary hypertension, estimated pulmonary arterial systolic pressure is 45 mmHg. Pericardium/Pleural The pericardium appears normal. There is trivial pericardial effusion. Inferior Vena Cava Normal inferior vena cava with <50% collapse upon inspiration consistent with elevated right atrial pressure, 10 mmHg. Aorta The aortic root size at the sinus of Valsalva is normal. Left Ventricular Outflow Tract Name Value Normal LVOT 2D LVOT Diameter 2.0 cm LVOT Doppler
[2024-03-22 00:22] LABS: Glucose Point of Care 172 mg/dl (65-105)
[2024-03-22] MEDS: ALBUMIN HUMAN 25% 25 GM/100 ML 100 ML IVPB ×4 (00:40→18:02)
[2024-03-22] MEDS: NOREPINEPHRINE 8 MG/D5W 250 ML 8 MG/250 ML BAG 35.63 MG IV CONT (01:22)
[2024-03-22 01:49] LABS: Anion Gap 11 mmol/L (4-12); Blood Urea Nitrogen 69 mg/dL (7-17); Calcium 6.3 mg/dL (8.4-10.2); Carbon Dioxide 31 mmol/L (22-30); Chloride 92 mmol/L (98-107); Estimated CRCL calculation 33 ml/min; Estimated Glomerular Filt Rate 24; Glucose 200 mg/dL (65-110); Potassium 3.7 mmol/L (3.4-5.0); Sodium 134 mmol/L (137-145)
[2024-03-22] MEDS: EPOPROSTENOL SODIUM 0.5 MG VIAL 1 MG INHALATION ×5 (02:01→23:46)
[2024-03-22 02:22] LABS: Alveolar/Arterial O2 Gradient 579.5 mmHg; Base Excess ABG 1.7 mEq/l (+/-2.0); Carboxyhemoglobin 0.3 % THb (0-2.0); Fractional Inspired Oxygen 100 %; HCO3 ABG 29.9 mEq/l (22.0-26.0); Methemoglobin ABG 0.1 %THb (0-1.5); Oxygen Content ABG 16.5 %vol (16.0-22.0); Oxygen Saturation ABG 91.2 % (95.0-100.0); Oxyhemoglobin 91.3 % THb (90.0-100.0); PO2 FiO2 Ratio Arterial Blood 0.69 %; Reduced Hemoglobin 8.3 %THb (0-5.0); Total Hemoglobin 12.8 g/dL (12.0-18.0)
[2024-03-22 02:24] LABS: pH ABG 7.284 (7.350-7.450)
[2024-03-22 02:25] LABS: Device VENTILATOR; Modified Allen's Test Pass; PCO2 ABG 64.5 mmHg (35.0-45.0); Site Drawn ARTLINE
[2024-03-22 02:26] LABS: Arterial Blood Gas PEEP 14 cmH2O; Arterial Blood Gas Vent Mode CMV; Arterial Blood Gas Ventilator rate 26 /MIN
[2024-03-22 02:27] LABS: Arterial Blood Gas Tidal Volume 350 ml
[2024-03-22] MEDS: AMIODARONE 360 MG/D5W 200 ML 360 MG/200 ML BAG 33.33 MG IV CONT ×3 (03:00→14:05)
[2024-03-22 04:08] LABS: Glucose Point of Care 210 mg/dl (65-105)
[2024-03-22 05:27] LABS: Hematocrit 35.7 % (37.0-47.0); Hemoglobin 12.1 g/dL (12.0-15.0); Mean Corpuscular HGB Conc 33.9 g/dl (32-36); Mean Corpuscular Hemoglobin 32.4 pg (26-34); Mean Corpuscular Volume 95.5 fl (80-100); Mean Platelet Volume 11.1 fl (7.4-10.4); Platelet Count Result 172 k/mm3 (150-375); Red Blood Count 3.74 M/mm3 (4.2-5.4); Red Cell Distribution Width 13.9 % (11.5-14.5); White Blood Count 47.9 K/mm3 (4.5-10.0)
[2024-03-22] MEDS: CENTRAL LINE FLUSH 10 ML IV PUSH ×3 (05:40→21:04)
[2024-03-22] MEDS: HYDROCORTISONE SODIUM SUCCINATE 100 MG/2 ML VIAL IV PUSH ×3 (05:40→21:11)
[2024-03-22 05:41] LABS: Alanine Aminotransferase 37 U/L (6-35); Albumin Level 3.4 g/dL (3.5-5.1); Alkaline Phosphatase 213 U/L (38-126); Anion Gap 12 mmol/L (4-12); Aspartate Amino Transferase 88 U/L (14-36); Bilirubin,Total 1.4 mg/dL (0.2-1.3); Blood Urea Nitrogen 71 mg/dL (7-17); Calcium 6.6 mg/dL (8.4-10.2); Carbon Dioxide 31 mmol/L (22-30); Chloride 93 mmol/L (98-107); Estimated CRCL calculation 32 ml/min; Estimated Glomerular Filt Rate 23; Glucose 240 mg/dL (65-110); Magnesium 2.6 mg/dL (1.6-2.3); Phosphorus 9.3 mg/dL (2.5-4.5); Potassium 3.9 mmol/L (3.4-5.0); Sodium 136 mmol/L (137-145)
[2024-03-22 05:41] LABS: Lactic Acid Reflex 2.7 mmol/L (0.7-2.0)
[2024-03-22 06:38] LABS: Glucose Point of Care 223 mg/dl (65-105)
[2024-03-22 07:12] LABS: Atypical Lymphocytes Present; Band Neutrophils Percent 15 % (0-6); Dohle Bodies Present; Lymphocytes Absolute Manual 2.87 K/mm3 (1.1-4.5); Metamyelocytes Percent 2 %; Monocytes Absolute Manual 0.47 K/mm3 (0.1-0.90); Monocytes Percent Manual 1 % (3-9); Neutrophils Absolute Manual 43.58 K/mm3 (1.7-7.2); Neutrophils Percent Manual 76 % (46-73); Platelet Estimate Adequate (Adequate); Schistocytes None Seen; Total Cells Counted 100
[2024-03-22 08:00] LABS: Glucose Point of Care 228 mg/dl (65-105)
[2024-03-22] MEDS: VASOPRESSIN INJ 100 UNITS in DEXTROSE 5% 95 ML IV CONT (08:00)
[2024-03-22 08:25] LABS: Reflex Lactic Acid Yes or No Add Lactic
[2024-03-22] MEDS: ASPIRIN 325 MG TABLET FEED TUBE (08:38)
[2024-03-22] MEDS: PANTOPRAZOLE SODIUM IV 40 MG VIAL IV PUSH (08:38)
[2024-03-22] MEDS: CEFEPIME 2 GM/NS 50 ML 2 GM/50 ML BAG IVPB ×2 (08:39→21:02)
[2024-03-22] MEDS: MINERAL OIL/WHITE PETROLATUM OINTMENT 1 APPLIC EACH EYE ×2 (08:39→21:04)
[2024-03-22] MEDS: DOXYCYCLINE 100 MG/NS 100 ML 100 MG/100 ML BAG IVPB ×2 (08:39→21:00)
[2024-03-22 08:59] LABS: Alveolar/Arterial O2 Gradient 580.8 mmHg; Carboxyhemoglobin 0.3 % THb (0-2.0); Fractional Inspired Oxygen 100 %; HCO3 ABG 29.6 mEq/l (22.0-26.0); Methemoglobin ABG 0.1 %THb (0-1.5); Oxygen Content ABG 15.9 %vol (16.0-22.0); Oxygen Saturation ABG 92.5 % (95.0-100.0); Oxyhemoglobin 91.8 % THb (90.0-100.0); PO2 ABG 71.6 mmHg (80.0-100.0); PO2 FiO2 Ratio Arterial Blood 0.72 %; Reduced Hemoglobin 7.8 %THb (0-5.0); Total Hemoglobin 12.3 g/dL (12.0-18.0); pH ABG 7.306 (7.350-7.450)
[2024-03-22 09:02] LABS: Arterial Blood Gas Ventilator rate 26 /MIN; Device VENTILATOR; PCO2 ABG 60.6 mmHg (35.0-45.0); Site Drawn ARTLINE
[2024-03-22 09:03] LABS: Arterial Blood Gas PEEP 14 cmH2O; Arterial Blood Gas Tidal Volume 350 ml; Arterial Blood Gas Vent Mode CMV
[2024-03-22] MEDS: NOREPINEPHRINE 8 MG/D5W 250 ML 8 MG/250 ML BAG 15 MG IV CONT (09:15)
[2024-03-22] MEDS: PERFLUTREN LIPID MICROSPHERES 1.5 ML VIAL DILUTED TO 10 ML TOTAL VOLUME IV PUSH (10:36)
[2024-03-22 11:07] LABS: Glucose Point of Care 220 mg/dl (65-105)
--- NOTE | 2024-03-22 11:12 | WPDINTPN ---
Progress Note: A&P Assessment and Plan (1) Septic shock: Code(s): A41.9 - Sepsis, unspecified organism; R65.21 - Severe sepsis with septic shock Status: Acute Assessment and Plan: Patient presented with shortness of breath, hypotension, tachypnea, elevated lactic acid, leukocytosis Source of sepsis is likely pneumonia although her UA is also suggestive of UTI -03/20: chest CT scan on admission showed diffuse bilateral lung disease consistent with pneumonia, mild mediastinal lymphadenopathy Patient has received significant IV fluids and will hold further IV fluids at this time Continue Levophed and vasopressin Hydrocortisone Continue cefepime and vancomycin (03/20) add doxycycline (03/21) -03/20: Urine and blood cultures have been obtained Pending sputum culture -will order mycoplasma IgM urine Legionella and urine pneumococcal antigen Continue 25% albumin through today (2) Respiratory failure: Code(s): J96.90 - Respiratory failure, unspecified, unspecified whether with hypoxia or hypercapnia Status: Acute Assessment and Plan: Patient with diffuse infiltrates on chest x-ray and chest CT scan. Most likely multifocal pneumonia leading to severe hypoxia and respiratory failure -03/20 intubated for impending respiratory failure, hypoxia, tachycardia -currently on CMV mode of ventilation, peep of 14, 100% FiO2 and patient in prone position -patient was started on inhaled Flolan which will be continued -ABGs reviewed continue current ventilation has peak pressures are not limit and tolerate permissive hypercapnia -sodium bicarbonate for mixed acidosis was given and now off -continue bronchodilators -continue antibiotics as above -currently sedated with fentanyl and Versed infusion and paralyzed with Nimbex infusion -patient too unstable to transfer to tertiary facility at this time -will place patient in supine position for 8 hours as tolerated. Advance ET tube by 2 cm (3) Multifocal pneumonia: Code(s): J18.9 - Pneumonia, unspecified organism Status: Acute Assessment and Plan: See above (4) JACOB (acute kidney injury): Code(s): N17.9 - Acute kidney failure, unspecified Status: Acute Assessment and Plan: Acute kidney injury likely related to hypoxia, hypotension, septic shock, pneumonia, -creatinine on admission was 2.20 (baseline creatinine 0.6-0.8 in April 2023) - Urine electrolytes suggest prerenal -patient procedure fluid resuscitated in the ICU -hold further IV fluids to prevent further fluid overload in light of severe respiratory failure -renal ultrasound unremarkable -consulted nephrology -monitor renal function, urine output and electrolytes (5) Diabetes mellitus: Code(s): E11.9 - Type 2 diabetes mellitus without complications Status: Acute Assessment and Plan: Uncontrolled hyperglycemia. Continue insulin infusion and will transition to Lantus and subcutaneous insulin today (6) Dyslipidemia: Code(s): E78.5 - Hyperlipidemia, unspecified Status: Acute Assessment and Plan: Patient is on statin at home, on hold due to elevated liver enzymes (7) Gastroesophageal reflux disease: Code(s): K21.9 - Gastro-esophageal reflux disease without esophagitis Status: Acute Assessment and Plan: Protonix has been ordered (8) Acidosis: Code(s): E87.20 - Acidosis, unspecified Status: Acute Assessment and Plan: Mixed metabolic and respiratory acidosis Unable to further increased ventilation due to high pressures. Receive hypercapnia Improved Will hold further bicarb (9) Atrial fibrillation with rapid ventricular response: Code(s): I48.91 - Unspecified atrial fibrillation Status: Acute Assessment and Plan: 03/21 Patient went into AFib with RVR overnight and was started on amiodarone infusion. This morning when I evaluated the patient she was still in RVR and I gave patient other amio
--- NOTE | 2024-03-22 11:13 | IVDEFINITY ---
Prior to administration of IV Definity the patient was educated on the risks and benefits of the imaging enhancing agent including potential adverse side effects. The patient verbalized understanding. Allergies were verified. No exclusion criteria were identified and at least one of the following inclusion criteria were met: 1) physician request, 2) patient technically difficult to image (per the [place] [employer] guidelines of two or more segments not discernable within the apical view), or 3) questionable left ventricular function. ?
[2024-03-22] MEDS: INSULIN GLARGINE (*BKC) 100 UNITS/ML 15 UNITS SUB-Q (11:49)
[2024-03-22] MEDS: INSULIN ASPART (*BKC) 100 UNITS/ML SUB-Q ×4 (11:56→21:55)
[2024-03-22 12:00] LABS: Glucose Point of Care 233 mg/dl (65-105)
[2024-03-22] MEDS: ENOXAPARIN 40 MG/0.4 ML SYRINGE SUB-Q (12:25)
--- NOTE | 2024-03-22 13:35 | P.CONNP_ITS ---
Assessment and Plan Assessment and plan (1) JACOB (acute kidney injury): Code(s): N17.9 - Acute kidney failure, unspecified Status: Acute Assessment and Plan: * multifactorial etiology: * hypoxia * hypotension/hemodynamica instability * sepsis/infection (pneumonia) * prerenal factors * baseline creatinine 0.6-0.8 in April 2023 * s/p fluid resuscitation i * evaluation to date: * urine electrolytes prerenal * urine eosinophil negative * CPK mildly elevated - not enough to affect kidney function * renal ultrasound unremarkable * follow repeat labs and UOP (2) Septic shock: Code(s): A41.9 - Sepsis, unspecified organism; R65.21 - Severe sepsis with septic shock Status: Acute Assessment and Plan: * as noted by presenation * likely source though to be pneumonia/lungs: * chest x-ray on admission shows diffuse bilateral infiltrates, 3.4 cm mass in the right upper lobe * chest CT scan on admission showed diffuse bilateral lung disease consistent with pneumonia, mild mediastinal lymphadenopathy * lactic acid 6.6 on admission but better s/p IVF resuscitation * follow culture data * on antibiotic therapy * vasopressor support to maintain BP * continue supportive therapy (3) Respiratory failure: Code(s): J96.90 - Respiratory failure, unspecified, unspecified whether with hypoxia or hypercapnia Status: Acute Assessment and Plan: * due to pneumonia and sepsis * intubated due to imprending respiratory failure in association with hypoxia and tachycardia * continue ventilator support (4) Multifocal pneumonia: Code(s): J18.9 - Pneumonia, unspecified organism Status: Acute Assessment and Plan: * as noted by admission imaging * continue current treatment strategy (5) Diabetes mellitus: Code(s): E11.9 - Type 2 diabetes mellitus without complications Status: Acute Assessment and Plan: * follow accu-cheks * glycemic control per hospitalists/intensivists I will continue to follow the patient with you while she remains hospitalized to make further recommendations as deemed necessary. Thank you for allowing me to participate in the care this patient. History of Present Illness Reason for Consult Consult date: 03/22/24 Reason for consult: acute renal failure Chief Complaint Chief complaint: Respiratory Failure/Renal Failure History of Present Illness Narrative: All the information that I have obtained is from review of the electronic medical records as well as discussion with the physician/nurses involved in the patient's care as she is unable to provide me with any history as she is currently intubated and on mechanical ventilation. The patient is a 48-year-old female with a past medical history as outlined below who presented to [facility] Emergency room from her longterm for worsening shortness of breath. I am not exactly sure how long the patient was having problems with shortness of breath and dyspnea but apparently it became so severe that her facility transferred her to the emergency room for further evaluation. Other than the shortness of breath and dyspnea, I am also unclear if there any other symptoms present prior to her presentation. Evaluation in the emergency room demonstrated the patient be tachycardic in the 130s and with significant hypoxia despite the fact that she was on 10 L of supplemental oxygen. She was eventually switched to BiPAP and effort to optimize her respiratory status. Routine blood test dem
--- NOTE | 2024-03-22 13:35 | PM.CNNEP ---
Assessment and Plan Assessment and plan (1) JACOB (acute kidney injury): Code(s): N17.9 - Acute kidney failure, unspecified Status: Acute Assessment and Plan: multifactorial etiology: hypoxia hypotension/hemodynamica instability sepsis/infection (pneumonia) prerenal factors baseline creatinine 0.6-0.8 in April 2023 s/p fluid resuscitation i evaluation to date: urine electrolytes prerenal urine eosinophil negative CPK mildly elevated - not enough to affect kidney function renal ultrasound unremarkable follow repeat labs and UOP (2) Septic shock: Code(s): A41.9 - Sepsis, unspecified organism; R65.21 - Severe sepsis with septic shock Status: Acute Assessment and Plan: as noted by presenation likely source though to be pneumonia/lungs: chest x-ray on admission shows diffuse bilateral infiltrates, 3.4 cm mass in the right upper lobe chest CT scan on admission showed diffuse bilateral lung disease consistent with pneumonia, mild mediastinal lymphadenopathy lactic acid 6.6 on admission but better s/p IVF resuscitation follow culture data on antibiotic therapy vasopressor support to maintain BP continue supportive therapy (3) Respiratory failure: Code(s): J96.90 - Respiratory failure, unspecified, unspecified whether with hypoxia or hypercapnia Status: Acute Assessment and Plan: due to pneumonia and sepsis intubated due to imprending respiratory failure in association with hypoxia and tachycardia continue ventilator support (4) Multifocal pneumonia: Code(s): J18.9 - Pneumonia, unspecified organism Status: Acute Assessment and Plan: as noted by admission imaging continue current treatment strategy (5) Diabetes mellitus: Code(s): E11.9 - Type 2 diabetes mellitus without complications Status: Acute Assessment and Plan: follow accu-cheks glycemic control per hospitalists/intensivists I will continue to follow the patient with you while she remains hospitalized to make further recommendations as deemed necessary. Thank you for allowing me to participate in the care this patient. History of Present Illness Reason for Consult Consult date: 03/22/24 Reason for consult: acute renal failure Chief Complaint Chief complaint: Respiratory Failure/Renal Failure History of Present Illness Narrative: All the information that I have obtained is from review of the electronic medical records as well as discussion with the physician/nurses involved in the patient's care as she is unable to provide me with any history as she is currently intubated and on mechanical ventilation. The patient is a 48-year-old female with a past medical history as outlined below who presented to [facility] Emergency room from her correction for worsening shortness of breath. I am not exactly sure how long the patient was having problems with shortness of breath and dyspnea but apparently it became so severe that her facility transferred her to the emergency room for further evaluation. Other than the shortness of breath and dyspnea, I am also unclear if there any other symptoms present prior to her presentation. Evaluation in the emergency room demonstrated the patient be tachycardic in the 130s and with significant hypoxia despite the fact that she was on 10 L of supplemental oxygen. She was eventually switched to BiPAP and effort to optimize her respiratory status. Routine blood test demonstrated a normal white blood cell count stable H&H, an elevated BUN creatinine in association with a metabolic acidosis and mild hyponatremia lactic acidosis and elevated proBNP. Her chest x-ray demonstrated a masslike descent than [place] in the right upper lobe measuring 3.4 cm as well as diffuse bilateral infiltrates which may represent edema or pneumonia. She subsequent when a CT scan of the chest that showed diffuse lung disease
--- NOTE | 2024-03-22 13:51 | PC.NURSE ---
notified Dr. Bhakta the pt went back in a-fib, new orders recieved
[2024-03-22] MEDS: AMIODARONE 150 MG/D5W 100 ML 150 MG/100 ML BAG 600 MG IV CONT (14:04)
[2024-03-22 14:29] LABS: Alveolar/Arterial O2 Gradient 579.5 mmHg; Base Excess ABG 1.6 mEq/l (+/-2.0); Carboxyhemoglobin 0.3 % THb (0-2.0); Fractional Inspired Oxygen 100 %; HCO3 ABG 30.1 mEq/l (22.0-26.0); Methemoglobin ABG 0.2 %THb (0-1.5); Oxygen Content ABG 15.2 %vol (16.0-22.0); Oxygen Saturation ABG 89.3 % (95.0-100.0); PO2 ABG 65.5 mmHg (80.0-100.0); PO2 FiO2 Ratio Arterial Blood 0.65 %; Reduced Hemoglobin 9.5 %THb (0-5.0)
[2024-03-22 14:30] LABS: Device VENTILATOR; Site Drawn ARTLINE; pH ABG 7.264 (7.350-7.450)
[2024-03-22 14:31] LABS: Arterial Blood Gas PEEP 14 cmH2O; Arterial Blood Gas Tidal Volume 350 ml; Arterial Blood Gas Vent Mode CMV; Arterial Blood Gas Ventilator rate 26 /MIN
[2024-03-22] MEDS: MIDAZOLAM 100MG/NS 100ML(*CRX) 100 MG/100 ML BAG IV CONT (16:08)
[2024-03-22 16:55] LABS: Glucose Point of Care 241 mg/dl (65-105)
[2024-03-22] MEDS: CISATRACURIUM BESYLATE 200 MG in DEXTROSE 5% 80 ML 5.82 ML IV CONT (17:02)
[2024-03-22] MEDS: ACETAMINOPHEN ELIXIR 325 MG/10.15 ML UDC 650 MG PO (17:04)
[2024-03-22] MEDS: FENTANYL 2,500MCG/NS250ML(*CRX 2,500 MCG/250 ML BAG 10 MCG IV CONT (18:19)
[2024-03-22 19:50] LABS: Alveolar/Arterial O2 Gradient 582.7 mmHg; Base Excess ABG 2.2 mEq/l (+/-2.0); Carboxyhemoglobin 0.3 % THb (0-2.0); Fractional Inspired Oxygen 100 %; HCO3 ABG 30.7 mEq/l (22.0-26.0); Methemoglobin ABG 0.2 %THb (0-1.5); Oxygen Content ABG 14.7 %vol (16.0-22.0); PO2 ABG 61.8 mmHg (80.0-100.0); PO2 FiO2 Ratio Arterial Blood 0.62 %; Reduced Hemoglobin 11.6 %THb (0-5.0); Total Hemoglobin 11.9 g/dL (12.0-18.0)
[2024-03-22 19:51] LABS: pH ABG 7.269 (7.350-7.450)
[2024-03-22 19:52] LABS: Oxygen Saturation ABG 87.6 % (95.0-100.0); PCO2 ABG 68.5 mmHg (35.0-45.0)
[2024-03-22 19:53] LABS: Device VENTILATOR; Oxyhemoglobin 87.9 % THb (90.0-100.0); Site Drawn ARTLINE
[2024-03-22 19:54] LABS: Arterial Blood Gas PEEP 15 cmH2O; Arterial Blood Gas Tidal Volume 350 ml; Arterial Blood Gas Vent Mode CMV; Arterial Blood Gas Ventilator rate 26 /MIN
[2024-03-22] MEDS: AMIODARONE 360 MG/D5W 200 ML 360 MG/200 ML BAG 16.67 MG IV CONT (20:00)
--- NOTE | 2024-03-22 20:40 | PC.NURSE ---
Patient oxygen saturation ranging from 85%-89%. RN called RT asking them to run the 2030 ABG early. RN called MD with results. MD instructed to RN to prone patient. RN and RT staff successfully proned patient. Care continues.
[2024-03-22] MEDS: INSULIN GLARGINE (*BKC) 100 UNITS/ML 30 UNITS SUB-Q (21:11)
[2024-03-22 21:28] LABS: Glucose Point of Care 246 mg/dl (65-105)
[2024-03-22 23:45] LABS: Glucose Point of Care 226 mg/dl (65-105)
[2024-03-23] VITALS (41 sets, daily range): BP systolic 89–110; BP diastolic 43–69; PULSE 81–135; RESP 24–26; TEMP 36.9–38.7; O2SAT 82–98
[2024-03-23] MEDS: INSULIN ASPART (*BKC) 100 UNITS/ML SUB-Q ×4 (00:22→11:39)
[2024-03-23] MEDS: AMIODARONE 150 MG/D5W 100 ML 150 MG/100 ML BAG 600 MG IV CONT (01:57)
[2024-03-23] MEDS: AMIODARONE 360 MG/D5W 200 ML 360 MG/200 ML BAG 33.33 MG IV CONT ×3 (02:09→14:02)
[2024-03-23 02:51] LABS: Alveolar/Arterial O2 Gradient 567.9 mmHg; Base Excess ABG 1.2 mEq/l (+/-2.0); Carboxyhemoglobin 0.3 % THb (0-2.0); Fractional Inspired Oxygen 100 %; HCO3 ABG 28.4 mEq/l (22.0-26.0); Oxygen Content ABG 15.2 %vol (16.0-22.0); Oxygen Saturation ABG 95.7 % (95.0-100.0); PCO2 ABG 57.4 mmHg (35.0-45.0); PO2 ABG 87.7 mmHg (80.0-100.0); PO2 FiO2 Ratio Arterial Blood 0.88 %; Reduced Hemoglobin 4.7 %THb (0-5.0); Total Hemoglobin 11.3 g/dL (12.0-18.0); pH ABG 7.312 (7.350-7.450)
[2024-03-23 02:52] LABS: Device VENTILATOR; Site Drawn ARTLINE
[2024-03-23 02:53] LABS: Arterial Blood Gas PEEP 14 cmH2O; Arterial Blood Gas Tidal Volume 350 ml; Arterial Blood Gas Vent Mode CMV; Arterial Blood Gas Ventilator rate 26 /MIN
[2024-03-23] MEDS: EPOPROSTENOL SODIUM 0.5 MG VIAL 1 MG INHALATION ×3 (05:53→17:54)
[2024-03-23 05:54] LABS: Hematocrit 31.4 % (37.0-47.0); Hemoglobin 10.7 g/dL (12.0-15.0); Immature Platelet Fraction Pct 11.6 % (0.9-11.2); Mean Corpuscular HGB Conc 34.1 g/dl (32-36); Mean Corpuscular Hemoglobin 32.6 pg (26-34); Mean Corpuscular Volume 95.7 fl (80-100); Mean Platelet Volume 11.3 fl (7.4-10.4); Platelet Count Result 103 k/mm3 (150-375); Red Blood Count 3.28 M/mm3 (4.2-5.4); Red Cell Distribution Width 14.5 % (11.5-14.5); White Blood Count 37.7 K/mm3 (4.5-10.0)
[2024-03-23] MEDS: HYDROCORTISONE SODIUM SUCCINATE 100 MG/2 ML VIAL IV PUSH ×2 (06:01→14:01)
[2024-03-23 06:32] LABS: Alanine Aminotransferase 41 U/L (6-35); Albumin Level 3.5 g/dL (3.5-5.1); Alkaline Phosphatase 302 U/L (38-126); Anion Gap 12 mmol/L (4-12); Aspartate Amino Transferase 112 U/L (14-36); Bilirubin,Total 1.4 mg/dL (0.2-1.3); Blood Urea Nitrogen 83 mg/dL (7-17); Calcium 6.5 mg/dL (8.4-10.2); Carbon Dioxide 31 mmol/L (22-30); Chloride 90 mmol/L (98-107); Estimated CRCL calculation 30 ml/min; Estimated Glomerular Filt Rate 21; Glucose 233 mg/dL (65-110); Magnesium 2.8 mg/dL (1.6-2.3); Phosphorus 9.1 mg/dL (2.5-4.5); Sodium 133 mmol/L (137-145)
[2024-03-23] MEDS: CENTRAL LINE FLUSH 10 ML IV PUSH ×2 (06:38→14:02)
[2024-03-23 07:43] LABS: Band Neutrophils Percent 9 % (0-6); Lymphocytes Absolute Manual 1.13 K/mm3 (1.1-4.5); Metamyelocytes Percent 3 %; Monocytes Percent Manual 4 % (3-9); Neutrophils Absolute Manual 33.93 K/mm3 (1.7-7.2); Neutrophils Percent Manual 81 % (46-73); Total Cells Counted 100
[2024-03-23 07:47] LABS: Hypochromasia 1+; Platelet Estimate Slightly Decreased (Adequate); Schistocytes None Seen
[2024-03-23 07:48] LABS: Anisocytosis 1+
--- NOTE | 2024-03-23 07:55 | WPDINTPN ---
Progress Note: A&P Assessment and Plan (1) Respiratory failure: Code(s): J96.90 - Respiratory failure, unspecified, unspecified whether with hypoxia or hypercapnia Status: Acute Assessment and Plan: Patient with diffuse infiltrates on chest x-ray and chest CT scan. Most likely multifocal pneumonia leading to severe hypoxia and respiratory failure which has gradually worsened -03/20 intubated for impending respiratory failure, hypoxia, tachycardia -currently on CMV mode of ventilation, peep of 14, 100% FiO2 and patient in prone position which does not appear to have significant impact on oxygenation -patient was started on inhaled Flolan which is being continued but also has not offered any significant benefit -saturation remained in high 80s despite these interventions -chest x-ray and ABG reviewed -since shock has improved I will start patient on Lasix today -low tidal volume ventilation and tolerate permissive hypercapnia -sodium bicarbonate for mixed acidosis was given and is now off -Bronchodilators -continue antibiotics as below -currently sedated with fentanyl and Versed infusion and paralyzed with Nimbex infusion -will place patient in supine position for 8 hours as tolerated. (2) Septic shock: Code(s): A41.9 - Sepsis, unspecified organism; R65.21 - Severe sepsis with septic shock Status: Acute Assessment and Plan: Patient presented with shortness of breath, hypotension, tachypnea, elevated lactic acid, leukocytosis Source of sepsis is likely pneumonia although her UA is also suggestive of UTI -03/20: chest CT scan on admission showed diffuse bilateral lung disease consistent with pneumonia, mild mediastinal lymphadenopathy Patient has received significant IV fluids and will hold further IV fluids at this time Patient was on Levophed and vasopressin but has been weaned off Hydrocortisone will be continued Continue cefepime and vancomycin (03/20) and doxycycline (03/21) -03/20: Urine, sputum and blood cultures have been obtained and are negative Pending mycoplasma IgM urine Legionella and urine pneumococcal antigen Off 25% albumin (3) Multifocal pneumonia: Code(s): J18.9 - Pneumonia, unspecified organism Status: Acute Assessment and Plan: See above (4) JACOB (acute kidney injury): Code(s): N17.9 - Acute kidney failure, unspecified Status: Acute Assessment and Plan: Acute kidney injury likely related to hypoxia, hypotension, septic shock, pneumonia, -creatinine on admission was 2.20 (baseline creatinine 0.6-0.8 in April 2023) - Creatinine increased to 2.5 - Urine electrolytes suggest prerenal -patient fluid resuscitated in the ICU -hold further IV fluids to prevent further fluid overload in light of severe respiratory failure -start Lasix IV today -renal ultrasound unremarkable -consulted nephrology -monitor renal function, urine output and electrolytes (5) Diabetes mellitus: Code(s): E11.9 - Type 2 diabetes mellitus without complications Status: Acute Assessment and Plan: Uncontrolled hyperglycemia. Continue and increase dose of Lantus Continue subcutaneous insulin today (6) Dyslipidemia: Code(s): E78.5 - Hyperlipidemia, unspecified Status: Acute Assessment and Plan: Patient is on statin at home, on hold due to elevated liver enzymes (7) Gastroesophageal reflux disease: Code(s): K21.9 - Gastro-esophageal reflux disease without esophagitis Status: Acute Assessment and Plan: Protonix has been ordered (8) Acidosis: Code(s): E87.20 - Acidosis, unspecified Status: Acute Assessment and Plan: Mixed metabolic and respiratory acidosis Unable to further increased ventilation due to high pressures. Permissive hypercapnia Improved Will hold further bicarb (9) Atrial fibrillation with rapid ventricular response: Code(s): I48.91 - Unspecified atrial fibrillation Status: Ac
[2024-03-23 08:00] LABS: Glucose Point of Care 267 mg/dl (65-105)
[2024-03-23] MEDS: FUROSEMIDE INJ 100 MG/10 ML VIAL 80 MG IV PUSH (08:00)
[2024-03-23] MEDS: MINERAL OIL/WHITE PETROLATUM OINTMENT 1 APPLIC EACH EYE (08:01)
[2024-03-23] MEDS: ASPIRIN 325 MG TABLET FEED TUBE (08:01)
[2024-03-23] MEDS: PANTOPRAZOLE SODIUM IV 40 MG VIAL IV PUSH (08:01)
[2024-03-23] MEDS: INSULIN GLARGINE (*BKC) 100 UNITS/ML 30 UNITS SUB-Q (08:09)
[2024-03-23] MEDS: CEFEPIME 2 GM/NS 50 ML 2 GM/50 ML BAG IVPB (08:16)
[2024-03-23] MEDS: DOXYCYCLINE 100 MG/NS 100 ML 100 MG/100 ML BAG IVPB (08:18)
[2024-03-23 08:29] LABS: Alveolar/Arterial O2 Gradient 529.5 mmHg; Base Excess ABG 1.3 mEq/l (+/-2.0); Carboxyhemoglobin 0.3 % THb (0-2.0); Fractional Inspired Oxygen 100 %; HCO3 ABG 29.4 mEq/l (22.0-26.0); Methemoglobin ABG 0.1 %THb (0-1.5); Oxygen Content ABG 16.6 %vol (16.0-22.0); Oxygen Saturation ABG 97.8 % (95.0-100.0); Oxyhemoglobin 97.1 % THb (90.0-100.0); PO2 ABG 119.7 mmHg (80.0-100.0); Reduced Hemoglobin 2.5 %THb (0-5.0)
[2024-03-23 08:30] LABS: PCO2 ABG 63.8 mmHg (35.0-45.0); pH ABG 7.281 (7.350-7.450)
[2024-03-23 08:32] LABS: Arterial Blood Gas PEEP 14 cmH2O; Arterial Blood Gas Tidal Volume 350 ml; Arterial Blood Gas Vent Mode CMV; Arterial Blood Gas Ventilator rate 26 /MIN; Device VENTILATOR; Site Drawn ARTLINE
--- NOTE | 2024-03-23 10:32 | PM.IMPN ---
Progress Note: A&P Assessment and Plan (1) Atrial fibrillation with rapid ventricular response: Code(s): I48.91 - Unspecified atrial fibrillation Status: Acute (2) JACBO (acute kidney injury): Code(s): N17.9 - Acute kidney failure, unspecified Status: Acute (3) Septic shock: Code(s): A41.9 - Sepsis, unspecified organism; R65.21 - Severe sepsis with septic shock Status: Acute (4) Pneumonia: Code(s): J18.9 - Pneumonia, unspecified organism Status: Acute (5) Respiratory failure: Code(s): J96.90 - Respiratory failure, unspecified, unspecified whether with hypoxia or hypercapnia Status: Acute (6) Multifocal pneumonia: Code(s): J18.9 - Pneumonia, unspecified organism Status: Acute (7) Insulin dependent type 2 diabetes mellitus: Code(s): E11.9 - Type 2 diabetes mellitus without complications; 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 Most likely multifocal pneumonia leading to severe hypoxia and respiratory failure which has gradually worsened -03/20 intubated for impending respiratory failure, hypoxia, tachycardia management of mechanical ventilation per elevator installer -patient was started on inhaled Flolan -sodium bicarbonate for mixed acidosis was given and is now off -Bronchodilators -continue antibiotics as below -currently sedated with fentanyl and Versed infusion and paralyzed with Nimbex infusion -will place patient in supine position for 8 hours as tolerated. (2) Septic shock: ?Code(s): A41.9 - Sepsis, unspecified organism; R65.21 - Severe sepsis with septic shock ?Status:?Acute ?Assessment and Plan: Patient presented with shortness of breath, hypotension, tachypnea, elevated lactic acid, leukocytosis Source of sepsis is likely pneumonia although her UA is also suggestive of UTI -03/20: chest CT scan on admission showed diffuse bilateral lung disease consistent with pneumonia, mild mediastinal lymphadenopathy Patient has received significant IV fluids and will hold further IV fluids at this time Patient was on Levophed and vasopressin but has been weaned off Hydrocortisone will be continued Continue cefepime and vancomycin (03/20) and doxycycline (03/21) -03/20:? Urine, sputum and blood cultures have been obtained and are negative Pending? mycoplasma IgM urine Legionella and urine pneumococcal antigen Off 25% albumin (3) Multifocal pneumonia: ?Code(s): J18.9 - Pneumonia, unspecified organism ?Status:?Acute ?Assessment and Plan: See above (4) JACOB (acute kidney injury): ?Code(s): N17.9 - Acute kidney failure, unspecified ?Status:?Acute ?Assessment and Plan: Acute kidney injury likely related to hypoxia, hypotension, septic shock, pneumonia, -creatinine on admission was 2.20 (baseline creatinine 0.6-0.8 in April 2023) - Creatinine increased to 2.5 - Urine electrolytes suggest prerenal -patient? fluid resuscitated in the ICU -start Lasix IV today -renal ultrasound unremarkable -consulted nephrology -monitor renal function, urine output and electrolytes (5) Diabetes mellitus: ?Code(s): E11.9 - Type 2 diabetes mellitus without complications ?Status:?Acute ?Assessment and Plan: Uncontrolled hyperglycemia.? Continue and increase dose of Lantus Continue subcutaneous insulin today (6) Dyslipidemia: ?Code(s): E78.5 - Hyperlipidemia, unspecified ?Status:?Acute ?Assessment and Plan: Patient is on statin at home, on hold due to elevated liver enzymes (7) Gastroesophageal reflux disease: ?Code(s): K21.9 - Gastro-esophageal reflux disease without esophagitis ?Status:?Acute ?Assessment and Plan: Elizabeth
[2024-03-23 10:42] LABS: Vancomycin Trough 10.9 ug/mL (10.0-20.0)
--- NOTE | 2024-03-23 11:22 | PCFNICU ---
ICU Rounding Note: Pt current nutrition is Nepro at 20 ml/hr. Nutrition recommendation: Goal rate at 40 ml/hr Last recorded weight is 107.2 kg, up from 103.5 kg on admit. Bowel Motility: No BM reported. Labs Reviewed: PO4 9.1,NA 133, GFR 21, BUN 83, Cr 2.5 Meds Noted: Fentanyl, Versed, Levophed, Vasopressin Skin: WNL Additional Notes:Patient remains on mechanical ventilator, tube feedings starting of Nepro at 20 ml/hr. Flush 30 ml q 4 hours. Per Pan Tank Worker notes patient has been accepted at [facility] and will transfer once a bed is available. Following daily in ICU rounds. Will monitor weight, labs, skin, meds, tube feedings tolerance every Wednesday and Wednesday.
[2024-03-23] MEDS: CISATRACURIUM BESYLATE 200 MG in DEXTROSE 5% 80 ML IV CONT (11:37)
[2024-03-23] MEDS: ENOXAPARIN 40 MG/0.4 ML SYRINGE SUB-Q (11:37)
[2024-03-23] MEDS: ACETAMINOPHEN ELIXIR 325 MG/10.15 ML UDC 650 MG PO (11:43)
[2024-03-23 12:16] LABS: Glucose Point of Care 246 mg/dl (65-105)
[2024-03-23] MEDS: VANCOMYCIN 1,500 MG/NS 500 ML 1,500 MG/500 ML BAG 250 MG IVPB (14:01)
[2024-03-23 14:33] LABS: Alveolar/Arterial O2 Gradient 513.5 mmHg; Base Excess ABG 2.9 mEq/l (+/-2.0); Carboxyhemoglobin 0.3 % THb (0-2.0); Fractional Inspired Oxygen 100 %; HCO3 ABG 31.2 mEq/l (22.0-26.0); Methemoglobin ABG 0.1 %THb (0-1.5); Oxygen Content ABG 18.1 %vol (16.0-22.0); Oxygen Saturation ABG 98.3 % (95.0-100.0); Oxyhemoglobin 97.3 % THb (90.0-100.0); PO2 ABG 133.2 mmHg (80.0-100.0); PO2 FiO2 Ratio Arterial Blood 1.33 %; Reduced Hemoglobin 2.3 %THb (0-5.0); Total Hemoglobin 13.1 g/dL (12.0-18.0)
[2024-03-23 14:34] LABS: Modified Allen's Test Pass; PCO2 ABG 66.3 mmHg (35.0-45.0); Site Drawn ARTLINE; pH ABG 7.291 (7.350-7.450)
[2024-03-23 14:35] LABS: Device VENTILATOR
[2024-03-23 14:36] LABS: Arterial Blood Gas PEEP 14 cmH2O; Arterial Blood Gas Vent Mode CMV; Arterial Blood Gas Ventilator rate 26 /MIN
[2024-03-23 14:37] LABS: Arterial Blood Gas Tidal Volume 350 ml
--- NOTE | 2024-03-23 14:57 | P.PNNP_ITS ---
Progress Note: A&P Assessment and Plan (1) JACOB (acute kidney injury): Code(s): N17.9 - Acute kidney failure, unspecified Status: Acute Assessment and Plan: * multifactorial etiology: * hypoxia * hypotension/hemodynamica instability * sepsis/infection (pneumonia) * prerenal factors * baseline creatinine 0.6-0.8 in April 2023 * s/p fluid resuscitation i * evaluation to date: * urine electrolytes prerenal * urine eosinophil negative * CPK mildly elevated - not enough to affect kidney function * renal ultrasound unremarkable * at risk for needing VOCATIONAL TRAINER/dialysis * diuresis as tolerated * follow repeat labs and UOP (2) Septic shock: Code(s): A41.9 - Sepsis, unspecified organism; R65.21 - Severe sepsis with septic shock Status: Acute Assessment and Plan: * as noted by presenation * likely source though to be pneumonia/lungs: * chest x-ray on admission shows diffuse bilateral infiltrates, 3.4 cm mass in the right upper lobe * chest CT scan on admission showed diffuse bilateral lung disease consistent with pneumonia, mild mediastinal lymphadenopathy * lactic acid 6.6 on admission but better s/p IVF resuscitation * follow culture data * on antibiotic therapy * vasopressor support to maintain BP * continue supportive therapy (3) Respiratory failure: Code(s): J96.90 - Respiratory failure, unspecified, unspecified whether with hypoxia or hypercapnia Status: Acute Assessment and Plan: * due to pneumonia and sepsis * intubated due to imprending respiratory failure in association with hypoxia and tachycardia * continue ventilator support (4) Multifocal pneumonia: Code(s): J18.9 - Pneumonia, unspecified organism Status: Acute Assessment and Plan: * as noted by admission imaging * continue current treatment strategy (5) Diabetes mellitus: Code(s): E11.9 - Type 2 diabetes mellitus without complications Status: Acute Assessment and Plan: * follow accu-cheks * glycemic control per hospitalists/intensivists Will continue to follow. Subjective Date/time seen: 03/23/24 14:57 Interval history: Follow-up for acute kidney injury/acute renal failure. Renal function about the same but noted decline in urine output; remains intubated/sedated/paralyzed on mechanical ventilation; vasopressors weaned off; on/off atrial fibrillation noted; febrile overnight; noted plans for possible t ransfer to [facility]. Exam Narrative: General: WD/WN female intubated/sedated/paralyzed on mechanical ventilation Heart: tachycardic, normal S1 and S2; no rub Lungs: coarse breath sounds Abdomen: soft, nontender, nondistended, positive bowel sounds Extremities: no cyanosis or clubbing; trace edema Skin: dry and intact Objective Data Vital Signs Vital Signs: Vital Signs Temp Pulse Resp BP Pulse Ox O2 Del Method FiO2 03/23/24 14:39 96 Mechanical Ventilation 90 03/23/24 14:27 122 H 96 Mechanical Ventilation 03/23/24 14:27 119 H 26 H 96 03/23/24 14:00 119 H 26 H 110/67 03/23/24 13:59 119 H 106/66 03/23/24 13:54 100.7 F H 114 H 24 H 108/65 98 03/23/24 12:38 118 H 03/23/24 12:30 82 03/23/24 12:25 110 H 97 Mechanical Ventilation 03/23/24 12:2
--- NOTE | 2024-03-23 14:57 | PM.PNNEP ---
Progress Note: A&P Assessment and Plan (1) JACOB (acute kidney injury): Code(s): N17.9 - Acute kidney failure, unspecified Status: Acute Assessment and Plan: multifactorial etiology: hypoxia hypotension/hemodynamica instability sepsis/infection (pneumonia) prerenal factors baseline creatinine 0.6-0.8 in April 2023 s/p fluid resuscitation i evaluation to date: urine electrolytes prerenal urine eosinophil negative CPK mildly elevated - not enough to affect kidney function renal ultrasound unremarkable at risk for needing BUILDING APPRAISER/dialysis diuresis as tolerated follow repeat labs and UOP (2) Septic shock: Code(s): A41.9 - Sepsis, unspecified organism; R65.21 - Severe sepsis with septic shock Status: Acute Assessment and Plan: as noted by presenation likely source though to be pneumonia/lungs: chest x-ray on admission shows diffuse bilateral infiltrates, 3.4 cm mass in the right upper lobe chest CT scan on admission showed diffuse bilateral lung disease consistent with pneumonia, mild mediastinal lymphadenopathy lactic acid 6.6 on admission but better s/p IVF resuscitation follow culture data on antibiotic therapy vasopressor support to maintain BP continue supportive therapy (3) Respiratory failure: Code(s): J96.90 - Respiratory failure, unspecified, unspecified whether with hypoxia or hypercapnia Status: Acute Assessment and Plan: due to pneumonia and sepsis intubated due to imprending respiratory failure in association with hypoxia and tachycardia continue ventilator support (4) Multifocal pneumonia: Code(s): J18.9 - Pneumonia, unspecified organism Status: Acute Assessment and Plan: as noted by admission imaging continue current treatment strategy (5) Diabetes mellitus: Code(s): E11.9 - Type 2 diabetes mellitus without complications Status: Acute Assessment and Plan: follow accu-cheks glycemic control per hospitalists/intensivists Will continue to follow. Subjective Date/time seen: 03/23/24 14:57 Interval history: Follow-up for acute kidney injury/acute renal failure. Renal function about the same but noted decline in urine output; remains intubated/sedated/paralyzed on mechanical ventilation; vasopressors weaned off; on/off atrial fibrillation noted; febrile overnight; noted plans for possible transfer to [facility]. Exam Narrative: General: WD/WN female intubated/sedated/paralyzed on mechanical ventilation Heart: tachycardic, normal S1 and S2; no rub Lungs: coarse breath sounds Abdomen: soft, nontender, nondistended, positive bowel sounds Extremities: no cyanosis or clubbing; trace edema Skin: dry and intact Objective Data Vital Signs Vital Signs: Vital Signs Temp Pulse Resp BP Pulse Ox O2 Del Method FiO2 03/23/24 14:39 96 Mechanical Ventilation 90 03/23/24 14:27 122 H 96 Mechanical Ventilation 03/23/24 14:27 119 H 26 H 96 03/23/24 14:00 119 H 26 H 110/67 03/23/24 13:59 119 H 106/66 03/23/24 13:54 100.7 F H 114 H 24 H 108/65 98 03/23/24 12:38 118 H 03/23/24 12:30 82 03/23/24 12:25 110 H 97 Mechanical Ventilation 03/23/24 12:24 115 H 26 H 97 03/23/24 12:00 129 H 26 H 03/23/24 12:00 126 H 26 H 03/23/24 12:00 129 H 104/66 03/23/24 12:00 120 H 03/23/24 12:00 100 03/23/24 12:00 98 Mechanical Ventilation 100 03/23/24 12:00 100.2 F H 129 H 26 H 104/66 98 03/23/24 11:43 100.1 F H 03/23/24 11:37 121 H 26 H 101/64 03/23/24 10:00 99.4 F 117 H 26 H 107/69 97 03/23/24 10:00 117 H 03/23/24 10:00 117 H 107/69 03/23/24 10:00 117 H 26 H 03/23/24 10:00 117 H 26 H 03/23/24 10:04 114 H 26 H 97 03/23/24 10:00 129 H 98 Mechanical Ventilation 03/23/24 08:00
[2024-03-23 15:58] LABS: Chloride Rand Ur <20 mmol/L (32-290); Creatinine Random Urine 161 mg/dL (20-275)
[2024-03-23] MEDS: MIDAZOLAM 100MG/NS 100ML(*CRX) 100 MG/100 ML BAG IV CONT (16:38)
[2024-03-23] MEDS: FENTANYL 2,500MCG/NS250ML(*CRX 2,500 MCG/250 ML BAG 10 MCG IV CONT (17:32)
--- NOTE | 2024-03-23 18:34 | PC.NURSE ---
1630: air-evac arrived; patient was un-proned: vitals - T: 100.1 HR:115 RR 26 oxygen sat: 87% BP 103/57 (art line), air evac then switched all IV lines to their pumps and placed on their heart monitor; we then moved patient over to their stretcher; vitals - oxygen sat: 86% BP: 134/86 HR:129 RR:26 (last set of vitals on Alonso monitor, further vitals done per air evac staff) 1720: tried to place on air evac ventilator with flolan attached and patients oxygen sats dropped to 70, patient was then placed back on Alonso vent sats improved back to 86%; patient was then placed on air evac vent again this time with no flolan and sats dropped to 78%, again placed back on Alonso ventilator sats improved to 87%. air evac team decided at this time that it was their ventilator that was not working properly and were calling in another crew, stated that they now have assumed care of patient except with pt still on Alonso ventilator; Dr. Bhakta was notified and received orders to stop flolan if needed for transfer 1755: 2nd air evac team arrived 1834: patient left facility and [facility] was updated
[2024-03-24 15:23] LABS: Pneumococcal Antigen Urine DETECTED
--- NOTE | 2024-03-25 16:06 | PM.TDS ---
Transfer Discharge Sum: Prov Provider Date of admission: 03/20/24 09:58 Primary care physician: Oh Piedra MD Admitting clinician: Pérez Kent MD Consults: 03/20/24 Consult to Physician Routine Comment: Consulting Provider: Tam Marquez Reason for consultation: respiratory failure Has provider been notified: Yes 03/22/24 Consult to Physician Routine Comment: called office with consult information Consulting Provider: Brandan Giron call person/MD group to consult: Nephrology Reason for consultation: JACOB Has provider been notified: Yes DS: Admitting Diagnosis Discharge Date 03/23/24 Admitting Diagnosis (1) Atrial fibrillation with rapid ventricular response: ?Code(s): I48.91 - Unspecified atrial fibrillation ?Status:?Acute (2) JACOB (acute kidney injury): ?Code(s): N17.9 - Acute kidney failure, unspecified ?Status:?Acute (3) Septic shock: ?Code(s): A41.9 - Sepsis, unspecified organism; R65.21 - Severe sepsis with septic shock ?Status:?Acute (4) Pneumonia: ?Code(s): J18.9 - Pneumonia, unspecified organism ?Status:?Acute (5) Respiratory failure: ?Code(s): J96.90 - Respiratory failure, unspecified, unspecified whether with hypoxia or hypercapnia ?Status:?Acute (6) Multifocal pneumonia: ?Code(s): J18.9 - Pneumonia, unspecified organism ?Status:?Acute (7) Insulin dependent type 2 diabetes mellitus: ?Code(s): E11.9 - Type 2 diabetes mellitus without complications; 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.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 ?Status:?Acute DS: Discharge Diagnosis Discharge Diagnosis (1) Atrial fibrillation with rapid ventricular response: Code(s): I48.91 - Unspecified atrial fibrillation Status: Acute (2) JACOB (acute kidney injury): Code(s): N17.9 - Acute kidney failure, unspecified Status: Acute (3) Septic shock: Code(s): A41.9 - Sepsis, unspecified organism; R65.21 - Severe sepsis with septic shock Status: Acute (4) Pneumonia: Code(s): J18.9 - Pneumonia, unspecified organism Status: Acute (5) Respiratory failure: Code(s): J96.90 - Respiratory failure, unspecified, unspecified whether with hypoxia or hypercapnia Status: Acute (6) Multifocal pneumonia: Code(s): J18.9 - Pneumonia, unspecified organism Status: Acute (7) Insulin dependent type 2 diabetes mellitus: Code(s): E11.9 - Type 2 diabetes mellitus without complications; 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.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 Status: Acute Transfer Discharge Sum: Med Medications Active and Home Medications: Home Medications buspirone 15 mg tablet 15 mg PO BID 05/01/23 [History Confirmed 03/22/24] divalproex 250 mg tablet,extended release 24 hr 250 mg PO QHS 05/01/23 [History Confirmed 03/22/24] divalproex 500 mg tablet,delayed release 500 mg PO Q12H 05/01/23 [History Confirmed 03/22/24] docusate sodium 100 mg tablet 100 mg PO DAILY 05/01/23 [History Confirmed 03/22/24] famotidine 40 mg tablet 40 mg PO DAILY 05/01/23 [History Confirmed 03/22/24] gabapentin 300 mg tablet 300 mg PO TID 05/01/23 [History Confirmed 03/22/24] haloperidol 2 mg tablet 2 mg PO BID 05/01/23 [History Confirmed 03/22/24] insulin glargine 100 unit/mL (3 mL) subcutaneous pen (Basaglar KwikPen U-100 Insulin) 25 unit subcut QPM 05/01/23 [History Confirmed 03/22/24] mirtazapine 15 mg tablet 15 mg PO HS 05/01/23 [History Confirmed 03/22/24] prazosin 5 mg capsule 5 mg PO HS 05/01/23 [History Confirmed 03/22/24] simvastatin 40 mg tablet 40 mg PO HS 05/01/23 [History Confirmed 03/22/24] alprazolam 0.5 mg tablet 0.5 mg PO BID PRN Anxiety 03/22/24 [History Confirmed 03/22/24] fluoxetine 20 mg capsule 28 mg PO DAILY 03/22/24 [History Confirmed 03/22/24] venlafaxine 150 mg capsule,extended release 24 hr 150 mg PO DAILY 03/22/24 [History Confirmed 03/22/24] ziprasidone HCl 40 mg capsule 40 mg PO DAILY 03/22/24 [History Confirm
[2024-03-25 21:38] LABS: Legionella pneumophila Ag Ur NOT DETECTED
[2024-03-29 21:03] LABS: Mycoplasma IgM Antibody Titer 404 U/mL
== END 2024-03-23 18:34 | disposition short-term general hospital (02) | DRG 871 ==
LOC: ANHED 09:58 → ANHICU 10:21
PROVIDERS: Internal Medicine; Admitting Provider Internal Medicine; Emergency Provider Emergency Medicine; PCP Family Medicine; Visit Provider Hospitalist
DX: A41.9 Sepsis, unspecified organism (principal); J18.9 Pneumonia, unspecified organism; R65.21 Severe sepsis with septic shock; J96.01 Acute respiratory failure with hypoxia; J44.0 Chronic obstructive pulmonary disease with (acute) lower respiratory infection; N17.9 Acute kidney failure, unspecified; E87.1 Hypo-osmolality and hyponatremia; E87.4 Mixed disorder of acid-base balance; I48.91 Unspecified atrial fibrillation; E11.9 Type 2 diabetes mellitus without complications; E78.5 Hyperlipidemia, unspecified; K21.9 Gastro-esophageal reflux disease without esophagitis; F41.9 Anxiety disorder, unspecified; F31.9 Bipolar disorder, unspecified; F20.9 Schizophrenia, unspecified; F17.210 Nicotine dependence, cigarettes, uncomplicated; Z20.822 Contact with and (suspected) exposure to COVID-19; Z79.4 Long term (current) use of insulin
CPT/HCPCS: 36415; 36600; 71045; 71250; 76775; 80048; 80053; 80202; 80307; 81001; 82375; 82436; 82550; 82570; 82805; 82948; 83050; 83605; 83735; 83880; 84100; 84133; 84300; 84484; 85025; 85027; 85055; 85610; 85730; 85999; 86140; 86738; 87040; 87070; 87086; 87205; 87449; 87637; 87641; 87899; 93005; 94002; 94003; 94640; 96374; 99285; A9270; C1751; C8929; C9113; J0282; J0613; J0692; J1650; J1720; J1815; J1940; J2060; J2250; J2371; J3010; J3370; J3475; J7030; J7040; P9047; Q9957